=== PATIENT | male | born 1930 | race Caucasian/White ===

== ENCOUNTER → 2016-11-30 | Outpatient (CLI) | payer BC ==
[~2016-11-30] MED LIST: ASPI81TA28 PO; LEVO50TA6 PO; MULT-506 PO; TRIATAB3 PO; ZOLP5TAB PO
--- NOTE | 2016-11-30 07:54 | DIAGNOSTIC IMAGING REPORT ---
Abdominal aortic ultrasound AORTIC ANEURYSM RETRO CALR CLINICAL HISTORY: AAA aneurysm TECHNIQUE: Ultrasound COMPARISON STUDY: 04/02/2016 FINDINGS: Unchanging aneurysm of the distal abdominal aorta. Maximum current dimensions of 3.2 x 3.1 cm. This is unchanged in the prior exam. Generalized atherosclerotic change of the remaining visualized components of the abdominal aorta as well as iliac vasculature. IMPRESSION: Aneurysm distal abdominal aorta unchanged from at least 2 prior studies. Electronically signed by: Tamir Walls M.D. 11/30/2016 7:53 AM Dictated Date/Time: 11/30/2016 7:50 AM
== END | disposition home or self-care (01) ==
LOC: C.ULTR 07:10
PROVIDERS: ATTEND Family Medicine
DX: I71.4 Abdominal aortic aneurysm, without rupture (principal)

== ENCOUNTER → 2016-12-28 | Outpatient (CLI) | payer BC ==
--- NOTE | 2016-12-28 13:59 | DIAGNOSTIC IMAGING REPORT ---
KUB CLINICAL HISTORY: Nephrolithiasis. COMPARISON STUDY: CT of the abdomen pelvis January 23, 2014. FINDINGS: A 3 mm left renal calculus is noted. There are a few suspected additional punctate left renal calculi. Evaluation for ureteral calculi is difficult given numerous phleboliths. No definite ureteral calculi are identified on this exam. No right renal calculi are identified although the right renal shadow is obscured by stool. IMPRESSION: 1. 3 mm left renal calculus with a few additional suspected punctate left renal calculi. 2. No ureteral calculi identified although evaluation is difficult given numerous phleboliths within the pelvis. Electronically signed by: Alfonzo Olmstead M.D. 12/28/2016 1:58 PM Dictated Date/Time: 12/28/2016 1:48 PM
== END | disposition home or self-care (01) ==
LOC: C.RAD 13:15
PROVIDERS: ATTEND Urology
DX: N20.0 Calculus of kidney (principal); N40.1 Benign prostatic hyperplasia with lower urinary tract symptoms; R97.20 Elevated prostate specific antigen [PSA]

== ENCOUNTER → 2016-12-30 | Outpatient (CLI) | payer BC ==
--- NOTE | 2016-12-30 15:12 | DIAGNOSTIC IMAGING REPORT ---
SACRUM COCCYX MIN 2 VIEWS CLINICAL HISTORY: SACROCOCCYGEAL DISORDERS COMPARISON STUDY: None. FINDINGS: No fractures identified within the sacrum or coccyx. The sacrum and coccyx are well aligned. Presacral soft tissues are within normal limits. Mild degenerative changes within the bilateral sacroiliac joints. Multiple pelvic phleboliths. IMPRESSION: No significant abnormality within the sacrum or coccyx. Electronically signed by: Dave Ramos M.D. 12/30/2016 3:11 PM Dictated Date/Time: 12/30/2016 3:09 PM
--- NOTE | 2016-12-30 15:14 | DIAGNOSTIC IMAGING REPORT ---
LUMBAR SPINE 5 VIEWS HISTORY: Low back pain. SACROCOCCYGEAL DISORDERS COMPARISON: None. FINDINGS: There is no fracture. No subluxation. Mild disc space narrowing at L3-L4 and L4-L5. Endplate osteophytes seen throughout the lumbar spine. Severe facet osteoarthritis at L5-S1. Mild facet osteoarthritis throughout the remaining lumbar spine levels. Large bridging osteophytes at L1-L2. The sacrum appears intact. IMPRESSION: No fracture or subluxation within the lumbar spine. Degenerative changes as described above. Electronically signed by: Dave Ramos M.D. 12/30/2016 3:13 PM Dictated Date/Time: 12/30/2016 3:11 PM
== END | disposition home or self-care (01) ==
LOC: C.RAD1850 14:47
PROVIDERS: ATTEND Family Medicine
DX: M53.3 Sacrococcygeal disorders, not elsewhere classified (principal)

== ENCOUNTER → 2017-01-31 | Outpatient (CLI) | payer BC ==
[2017-01-31 13:12] LABS: BASO % 0.4 %; BASO ABS # 0.02 K/uL (0-0.2); COMPLETE YES; EOS % 2.8 %; HEMATOCRIT 45.1 % (42-52); IG% 0.4 %; LYMPH % 26.5 %; LYMPH ABS # 1.44 K/uL (1.2-3.4); MEAN CORPUSCULAR HEMOGLOBIN 31.9 pg (25-34); MEAN CORPUSCULAR HGB CONC 33.9 g/dl (32-36); MEAN PLATELET VOLUME 9.6 fL (7.4-10.4); MONO % 12.9 %; PLATELET COUNT 205 K/uL (130-400); WHITE BLOOD COUNT 5.43 K/uL (4.8-10.8)
[2017-01-31 13:51] LABS: ALT/SGPT 21 U/L (12-78); AST/SGOT 20 U/L (15-37); BLOOD UREA NITROGEN 24 mg/dl (7-18); BUN/CREATININE RATIO 20.2 (10-20); CALCIUM 8.7 mg/dl (8.5-10.1); CARBON DIOXIDE 30 mmol/L (21-32); CHLORIDE 107 mmol/L (98-107); GLUCOSE 82 mg/dl (70-99); SODIUM 143 mmol/L (136-145)
[2017-01-31 14:02] LABS: ALB/GLOB RATIO 1.2 (0.9-2); ALKALINE PHOSPHATASE 84 U/L (45-117)
== END | disposition home or self-care (01) ==
LOC: C.LAB 12:25
PROVIDERS: ATTEND Internal Medicine
DX: N40.1 Benign prostatic hyperplasia with lower urinary tract symptoms (principal); R53.83 Other fatigue

== ENCOUNTER → 2017-03-09 | Outpatient (CLI) | payer BC | END | disposition home or self-care (01) | LOC: C.LAB 15:34 | PROVIDERS: ATTEND Family Medicine | DX: R10.9 Unspecified abdominal pain (principal) ==

== ENCOUNTER → 2017-03-14 | Outpatient (CLI) | payer BC ==
--- NOTE | 2017-03-14 13:32 | DIAGNOSTIC IMAGING REPORT ---
ANGIO ABD/PELVIS WITH CONTRAST CLINICAL HISTORY: 86 years-old Male presenting with diffuse abdominal pain, concern for abdominal aortic aneurysm. TECHNIQUE: Multidetector CT angiography of the abdomen and pelvis was performed after the administration of intravenous contrast. 3-D volumetric and/or maximum intensity projection (MIP) images were subsequently reconstructed for review. IV contrast: 92 mL of Optiray 320. A dose lowering technique was used consistent with the principles of ALARA (as low as reasonably achievable). COMPARISON: 01/23/2014. CT DOSE (mGy.cm): The estimated cumulative dose is 463.78 mGy.cm. FINDINGS: Decorative Engraver Apprentice topogram: Unremarkable. Evidence of an infrarenal abdominal aortic aneurysm with a maximal diameter of 3.2 cm, previously 3.2 cm in 2014. Irregularity of the noncalcified atherosclerotic plaque. A possible short segment dissection or penetrating ulcer is noted along the left anterolateral aspect (series 3 image 207). No periaortic inflammatory change or retroperitoneal hematoma to suggest impending rupture. Major branch vessels of the aorta remain patent including the inferior mesenteric artery. No narrowing of the common or external iliac arteries. Dependent changes in the lungs likely atelectasis. Normal heart size. No pericardial or pleural effusion. Well-defined hypodensity in the left hepatic lobe of the liver, indeterminate but likely cyst or hamartoma. Normal liver morphology. No biliary duct dilatation. Normal gallbladder. Mild prominence of the pancreatic duct. Spleen and adrenal glands normal. Multiple parapelvic renal cysts bilaterally. No hydronephrosis. Bladder and prostate normal. No bowel obstruction. Scattered subcentimeter mesenteric lymph nodes, possibly reactive. Mild dilatation of the left common femoral vein, slightly asymmetric to the right. This is incompletely evaluated given the arterial phase of contrast. No free fluid or gas. Degenerative changes of the spine. IMPRESSION: Infrarenal abdominal aortic aneurysm measuring up to 3.2 cm in maximal diameter, unchanged since 2013. Evidence of possible short segment dissection or penetrating ulcer along the left anterolateral aspect. No evidence of rupture. Electronically signed by: Yunior Lawson M.D. 03/14/2017 1:30 PM Dictated Date/Time: 03/14/2017 1:23 PM
== END | disposition home or self-care (01) ==
LOC: C.CTS 12:44
PROVIDERS: ATTEND Family Medicine
DX: R10.9 Unspecified abdominal pain (principal); I71.4 Abdominal aortic aneurysm, without rupture

== ENCOUNTER → 2017-05-31 | Outpatient (CLI) | payer BC ==
--- NOTE | 2017-05-31 12:05 | DIAGNOSTIC IMAGING REPORT ---
FLUOROSCOPIC GUIDED RIGHT HIP STEROID INJECTION FLUOROSCOPY TIME: 3 seconds. Single fluoroscopic spot image. HISTORY: Right hip pain. PROCEDURE: After obtaining written informed consent, the patient was placed supine on the fluoroscopy table. A suitable site for needle insertion was marked using fluoroscopic guidance. The right hip was prepped and draped in the usual sterile fashion. 1% lidocaine was used for skin, subcutaneous and deep soft tissue anesthesia. Under intermittent fluoroscopic guidance, a 22 gauge x 3.5 inch spinal needle was inserted into the right hip joint. 2 cc of Optiray 300 was injected to confirm the intra-articular location. This is followed by a mixture of 8 cc of 0.5% bupivacaine and 2 cc of betamethasone at the request of the referring physician. The needle was then removed. There were no apparent complications. IMPRESSION: Fluoroscopic-guided right hip steroid injection without immediate complication. Electronically signed by: Dave Ramos M.D. 05/31/2017 12:04 PM Dictated Date/Time: 05/31/2017 12:03 PM
== END | disposition home or self-care (01) ==
LOC: C.RADBC 10:50
PROVIDERS: ATTEND Orthopaedic Surgery Sports Medicine
DX: M16.11 Unilateral primary osteoarthritis, right hip (principal)

== ENCOUNTER 2017-07-22 05:04 | Inpatient (IN) | payer BC, OTHER ==
[2017-07-07 10:08] VITALS: BMI 27.0
--- NOTE | 2017-07-07 10:35 | PAT Medication Instructions ---
Service Date Jul 07, 2017. Current Home Medication List Acetaminophen (Tylenol), 1,000 MG PO PRN Aspirin (Aspirin Ec), 81 MG PO QAM Levothyroxine Sodium (Levothyroxine Sodium), 50 MCG PO QAM Multivitamin (Multivitamin), 1 TAB PO PRN Tramadol (Ultram), 50-100 MG PO Q8H PRN for Pain Zolpidem Tartrate (Ambien), 5 MG PO HS [Bp Med], 0.5 TAB PO QAM Medication Instructions For Your Scheduled Surgery - Call for instructions: [Bp Med], 0.5 TAB PO QAM - Hold the following medications the morning of surgery: Multivitamin (Multivitamin), 1 TAB PO PRN - Take the following medications the morning of surgery with a sip of water OTHERWISE NOTHING TO EAT OR DRINK AFTER MIDNIGHT: Acetaminophen (Tylenol), 1,000 MG PO PRN Tramadol (Ultram), 50-100 MG PO Q8H PRN for Pain Levothyroxine Sodium (Levothyroxine Sodium), 50 MCG PO QAM Aspirin (Aspirin Ec), 81 MG PO QAM - Take the following medications as scheduled the night before surgery: Acetaminophen (Tylenol), 1,000 MG PO PRN Tramadol (Ultram), 50-100 MG PO Q8H PRN for Pain Zolpidem Tartrate (Ambien), 5 MG PO HS If you have any questions please call us at [phone] or [phone] or [phone]
--- NOTE | 2017-07-07 11:15 | DIAGNOSTIC IMAGING REPORT ---
CHEST 2 VIEWS ROUTINE CLINICAL HISTORY: Preoperative chest COMPARISON STUDY: 05/03/2014 FINDINGS: The cardiac and mediastinal contours are normal. There is no evidence of focal pulmonary consolidation. There is no evidence of failure. No pleural effusions are visualized.[There is minimal basilar atelectasis/scarring. Degenerative changes are present within the dorsal spine. IMPRESSION: No active disease in the chest. Electronically signed by: Gumaro Urbina M.D. 07/07/2017 11:14 AM Dictated Date/Time: 07/07/2017 11:14 AM
[2017-07-07 11:19] LABS: PTT PATIENT 27.3 SECONDS (21.0-31.0)
[2017-07-07 11:20] LABS: BASO % 0.4 %; BASO ABS # 0.03 K/uL (0-0.2); EOS % 1.6 %; EOS ABS # 0.11 K/uL (0-0.5); HEMATOCRIT 42.6 % (42-52); HEMOGLOBIN 14.5 g/dL (14.0-18.0); IG# 0.02 K/uL (0.00-0.02); LYMPH % 12.6 %; LYMPH ABS # 0.85 K/uL (1.2-3.4); MEAN CELL VOLUME 96.4 fL (80-100); MEAN CORPUSCULAR HEMOGLOBIN 32.8 pg (25-34); MEAN PLATELET VOLUME 9.3 fL (7.4-10.4); MONO % 6.4 %; MONO ABS # 0.43 K/uL (0.11-0.59); NEUT % 78.7 %; NEUT ABS # 5.31 K/uL (1.4-6.5); PLATELET COUNT 214 K/uL (130-400); RED CELL DISTRIBUTION WIDTH CV 13.5 % (11.5-14.5); WHITE BLOOD COUNT 6.75 K/uL (4.8-10.8)
[2017-07-07 12:32] LABS: CALCIUM 8.6 mg/dl (8.5-10.1); CREATININE 1.49 mg/dl (0.60-1.40); POTASSIUM 3.8 mmol/L (3.5-5.1)
[~2017-07-22] VITALS: Ht 177.8 cm; Wt 87.3 kg
[2017-07-22] VITALS (23 sets, daily range): BP systolic 115–201; BP diastolic 63–89; PULSE 72–88; TEMP 36.7–39.3; O2SAT 91–99; Ht 177.8 cm; Wt 87.3 kg
[~2017-07-22 05:04] MED LIST changes: +ACET-1256 PO; +TRAM-10 PO
[2017-07-22] MEDS ORDERED: LACTATED RINGER'S 1000ML 500 ML IV SCH (06:00)
[2017-07-22] MEDS ORDERED: ACETAMINOPHEN 500 MG TAB PO SCH (06:00)
[2017-07-22] MEDS ORDERED: TRANEXAMIC ACID INJ 1,000 MG in SYRINGE 0 ML IV SCH (06:00)
[2017-07-22] MEDS ORDERED: METOCLOPRAMIDE HCL 10 MG TAB PO SCH (06:00)
[2017-07-22] MEDS ORDERED: GABAPENTIN 300 MG CAP PO SCH (06:00)
[2017-07-22] MEDS ORDERED: FAMOTIDINE 20 MG TAB PO SCH (06:00)
[2017-07-22] MEDS ORDERED: LACTATED RINGER'S 1000ML 1,000 ML IV SCH ×2 (06:00)
[2017-07-22] MEDS ORDERED: LACTATED RINGER'S 1000ML IV SCH (06:00)
[2017-07-22] MEDS ORDERED: BUPIVACAINE 0.5 % 5 MG/1 ML PF 10ML VIAL ONE (06:28)
[2017-07-22] MEDS ORDERED: BACITRACIN 50000 UNIT VIAL ONE (06:29)
[2017-07-22] MEDS ORDERED: BUPIVACAINE 0.5 % 5 MG/1 ML MPF 30ML VIAL ONE (06:30)
[2017-07-22] MEDS ORDERED: EpINEphrine HCL INJ 1 MG/ML 5ML SYRINGE ONE (06:30)
--- NOTE | 2017-07-22 06:39 | History & Physical Bridge Note ---
H&P Re-Evaluation Bridge Note: I have examined the patient, reviewed the History & Physical and in the interval since the performance of the History & Physical I have noted the following changes of clinical significance: No changes noted
--- NOTE | 2017-07-22 06:39 | History and Physical ---
History & Physical Date Jul 22, 2017. Chief Complaint Right Hip Pain History of Present Illness The patient is a 86 year old male with complaints of Right Hip Pain. Increased over past 6 months. Difficulty with any activities. Failed non-operative treatment. Past Medical/Surgical History Medical Problems: (1) CALCULUS OF URETER (2) CERV SPONDYL W MYELOPATH Additional History Hepatic Disease: No Endocrine Disorder: No Kidney Disease: No Hypertension: No Heart Disease: No Bleeding Tendencies: No Infectious Diseases: No Allergies Coded Allergies: No Known Allergies (Verified , 07/22/17) Home Medications Scheduled Acetaminophen (Tylenol), 1,000 MG PO PRN Aspirin (Aspirin Ec), 81 MG PO QAM Levothyroxine Sodium (Levothyroxine Sodium), 50 MCG PO QAM Multivitamin (Multivitamin), 1 TAB PO PRN Triamterene/Hctz (Triamterene/Hctz 37.5-25MG), 0.5 TAB PO QAM Zolpidem Tartrate (Ambien), 5 MG PO HS Scheduled PRN Tramadol (Ultram), 50-100 MG PO Q8H PRN for Pain Physical Examination Skin: warm/dry, no rash Eyes: normal inspection, EOMI, sclerae normal ENT: normal ENT inspection, pharynx normal Head: normocephalic, atraumatic Neck: supple, no adenopathy, trachea midline Respiratory/Chest: lungs clear, normal breath sounds, no respiratory distress Cardiovascular: regular rate, rhythm, no edema, no murmur Abdomen / GI: normal bowel sounds, non tender Back: normal inspection Extremities: normal inspection, normal range of motion Neurologic/Psych: no motor/sensory deficits, alert, normal reflexes, oriented x 3 Addiitonal Comments: Right Hip with limited motion. Pain with Internal Rotation. Diagnosis Right Hip DJD Plan of Treatment Right Total Hip Replacement
[2017-07-22] MEDS ORDERED: MIDAZOLAM HCL 1 MG/ML 2ML VIAL ONE (06:46)
[2017-07-22] MEDS: CEFAZOLIN 2000MG IV PUSH 10 ML IV SCH ×2 (07:00→08:06)
[2017-07-22] MEDS ORDERED: PROPOFOL IV EMULSION 10 MG/ML 20 ML VIAL IV ONE (08:06)
[2017-07-22] MEDS ORDERED: ESMOLOL HCL 10 MG/ML 10 ML VIAL ONE (08:06)
[2017-07-22] MEDS ORDERED: METOPROLOL TARTRATE 1 MG/ML VIAL ONE (08:09)
[2017-07-22] MEDS ORDERED: SODIUM CHLORIDE 0.9% 1000ML 1,000 ML IV PRN (08:20)
[2017-07-22] MEDS ORDERED: NALOXONE HCL INJ 1 MG in SODIUM CHLORIDE 0.9% 1000ML 1,000 ML IV PRN (08:20)
[2017-07-22] MEDS ORDERED: NALOXONE HCL INJ 0.08 MG in SYRINGE 1.8 ML IV PRN (08:20)
[2017-07-22] MEDS ORDERED: LACTATED RINGER'S 1000ML 500 ML IV PRN (08:20)
--- NOTE | 2017-07-22 08:26 | [facility] Post Operative Brief Note ---
Immediate Operative Summary Operative Date Jul 22, 2017. Pre-Operative Diagnosis Right hip degenerative joint disease Post-Operative Diagnosis Right hip degenerative joint disease Procedure(s) Performed Right total hip arthroplasty Surgeon Dr. Rose Sports Marketer Surgeon(s) Alexandre Padilla PA-C Estimated Blood Loss 300 mL Findings Right Hip DJD Fluids (cc crystalloids) 1200 cc Specimens A: Right femoral head Drains None Anesthesia Spinal Complication(s) None Accompanied patient to RR and did post-op note. Disposition Recovery Room / PACU
[2017-07-22] MEDS ORDERED: MoRPHine SULFATE PF 1 MG/ML 10 ML AMP/VIAL EPI PRN (08:30)
[2017-07-22] MEDS ORDERED: TAMSULOSIN HCL 0.4 MG CAP PO PRN (08:30)
[2017-07-22] MEDS ORDERED: MEPERIDINE HCL 25 MG/ML CARP IV PRN ×2 (08:30→15:30)
[2017-07-22] MEDS ORDERED: NALOXONE HCL 0.4 MG/1 ML VIAL/CARP IV PRN (08:30)
[2017-07-22] MEDS ORDERED: MULTIVITAMIN TAB PO SCH (08:30)
[2017-07-22] MEDS ORDERED: ONDANSETRON INJ 2 MG/ML 2 ML VIAL IV PRN (08:30)
[2017-07-22] MEDS ORDERED: SILVER SULFADIAZINE 1% CR 50 GM JAR EXT PRN (08:30)
[2017-07-22] MEDS ORDERED: KETOROLAC TROMETHAMINE 30 MG/ML VIAL IV. PRN (08:30)
[2017-07-22] MEDS ORDERED: NO NSAIDS SCH (08:30)
[2017-07-22] MEDS ORDERED: NALBUPHINE HCL INJ 10 MG/ML AMP IV PRN (08:30)
[2017-07-22] MEDS ORDERED: METOCLOPRAMIDE HCL INJ 5 MG/ML 2 ML VIAL IV PRN (08:30)
[2017-07-22] MEDS ORDERED: DiphenhydrAMINE HCL 50 MG/ML VIAL IV PRN (08:30)
[2017-07-22] MEDS ORDERED: NO NARCOTICS OR SEDATIVES SCH (08:30)
[2017-07-22] MEDS ORDERED: MAGNESIUM HYDROXIDE SUSP 30 ML UDC PO PRN (08:30)
[2017-07-22] MEDS ORDERED: EpHEDrine SULFATE INJ 50 MG/ML AMP IV PRN (08:30)
[2017-07-22] MEDS ORDERED: MoRPHine SULFATE 2 MG/ML CARP IV PRN (08:30)
[2017-07-22] MEDS ORDERED: ALUMINUM/MAGNESIUM/SIMETH (MAALOX MAX) 30 ML UDC PO PRN (08:30)
[2017-07-22] MEDS ORDERED: BISACODYL 10 MG SUPP PR PRN (08:30)
[2017-07-22] MEDS ORDERED: TRIAMTERENE/HCTZ 37.5/25MG TAB PO SCH (09:00)
--- NOTE | 2017-07-22 09:01 | OPERATIVE REPORT ---
DATE OF OPERATION: 07/22/2017 SURGEON: Pardeep Rose MD. SHEET METAL ERECTOR: HARDIK Kramer. PREOPERATIVE DIAGNOSIS: Right hip degenerative joint disease. POSTOPERATIVE DIAGNOSIS: Same. PROCEDURE PERFORMED: Right uncemented total hip arthroplasty. COMPLICATIONS: None. ESTIMATED BLOOD LOSS: 300 mL. FLUID REPLACEMENT: 1200 mL crystalloid fluid replacement. ANESTHESIA: Spinal. DRAINS: None. SPECIMENS: Right femoral head sent for pathology. 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 He has been through extensive conservative treatment without adequate relief. X-rays show progressive right hip arthritis with significant joint destruction over the past 6 months. He had an infectious workup which was essentially negative. He did have an intraarticular hip joint injection about 7 weeks ago which gave him a couple weeks of good relief, but he was pretty active on his hip and then was miserable. He has had trouble getting around. We tried to put this off and give a little bit more time after the injection, but he was really debilitated by his condition and after 6 weeks, we elected to proceed with a total hip arthroplasty. OPERATIVE FINDINGS: Operative findings revealed advanced right hip DJD. He did have some demargination and delamination of the articular cartilage suggestive of possible AVN. He had a moderate sized joint effusion. Not a lot of osteophytes around the acetabulum or femoral head. Moderate synovitis. OPERATIVE IMPLANTS: Operative implants consisted of: 1. Biomet G7 size 58-mm acetabular shell. 2. A 6.5 cancellous acetabular screws, 1 at 35 mm length and 1 at 25 mm in length. 3. An apex hole eliminator. 4. Highly cross-linked polyethylene liner with 58 mm outer diameter, 36 mm inner diameter with a sotelo placed inferior and posterior. 5. A DePuy size 13 large stature standard offset femoral stem. 6. A +5/36 mm articular ball. OPERATIVE PROCEDURE: The patient was taken to the operating room, identified and placed on the operating table in supine position. All contact areas were appropriately padded. IV antibiotics were provided by anesthesia team. A spinal anesthetic had been implemented in the holding area. May catheter was placed in sterile fashion. The patient was then placed in the left lateral decubitus position. An axillary roll was placed. Stlberg hip positioner was used for positioning. The right hip and leg were then prepped and draped in the usual sterile fashion. A posterolateral approach to the right hip was then performed through a curvilinear incision centered over the greater trochanter. Sharp dissection was carried out through the subcutaneous tissue down to the level of the IT band and gluteal fascia. The IT band and gluteal fascia were incised longitudinally in line with skin incision. The underlying greater trochanteric bursa was excised. The piriformis and external rotators were tagged and taken off the posterior aspect of the femur. Great care was taken throughout the procedure to protect the sciatic nerve at all times. Posterior capsulotomy was then performed leaving a large flap for later repair. It was internally rotated and dislocated. Femoral neck osteotomy cut was made about 15 mm above the lesser trochanter. Femoral head was removed and sent for pathology. The femur was retracted anteriorly. Attention was then drawn to the acetabulum. The acetabular labrum was excised. The pulvinar fat was excised. Sequential reaming of the acetabulum was then performed beginning with a size 49 and progressing up to 57. A 58 mm Biomet G7 acetabular shell was then placed in about 40 degrees of lateral opening and 20 degrees of anteversion. It was fixed with two 6.5 cancellous acetabular screws. A trial liner was placed. Attention was then drawn to the femur. The proximal femur was entered with a cookie cutter followed by canal finder and lateralizing reamer. Sequential reaming of the femur was then performed beginning with a size 10 and progressing up to an 11.5. We got pretty decent chatter even at a 10. We broached beginning with a size 10.5 small and progressed to a 12 small. We got excellent fit. The calcar reamer was then used to smoothen off the calcar. We then trialed the hip. The +5 articular ball provided full stability and full extension and external rotation, flexion to 90 degrees, internal rotation to 60 degrees. The soft tissue tension was a little bit lax, so I did place a sotelo inferior and posterior due to this patient's tendency to do a lot of bending and squatting. We elected to use these implants. All trial implants were removed. An apex hole eliminator was placed. Highly cross-linked polyethylene liner with a sotelo placed inferior and posterior was placed. A 12 large stature AML femoral stem was impacted in position. A +5/36 mm articular ball was placed. Hip was located and once again found to be stable. Attention was then drawn toward closing. The wound was irrigated with copious amounts of pulsatile lavage solution. I injected locally with 50 mL of 0.5% Marcaine with epinephrine. The posterior capsule and external rotators were repaired through drill holes in the posterior trochanter with #2 Ti-Cron suture. The IT band and gluteal fascia were then closed with #1 PDS suture in running fashion. The subcutaneous tissues were then closed with a combination of #1 Vicryl suture and 2-0 Dexon suture in a buried interrupted fashion. The skin was closed with skin jevon. Leg was then cleaned, dried and a sterile dressing of Xeroform, 4 x 4's, sterile ABD pad and foam tape was applied. The patient then transferred to the recovery room in stable condition. The patient tolerated the procedure with no complications. All needle and sponge counts were correct at the end of the operation. I attest to the content of the Intraoperative Record and any orders documented therein. Any exception s are noted below.
--- NOTE | 2017-07-22 09:03 | DIAGNOSTIC IMAGING REPORT ---
R PELVIS/UNILATERAL HIP 1 VIEW CLINICAL HISTORY: 86 years-old Male presenting with IN PACU - A/P PELVIS and LATERAL HIP INCLUDING ALL OF IMPLANT. TECHNIQUE: Single frontal view the pelvis and crosstable lateral views of the right hip were obtained. COMPARISON: 06/24/2017. FINDINGS: There has been postsurgical changes of total right hip arthroplasty. Overlying skin jevon and intra-articular and soft tissue emphysema noted. No malalignment or gross evidence of hardware complication. No fracture. Multiple pelvic phleboliths. Bony pelvis intact. IMPRESSION: Expected postsurgical appearance status post total right hip arthroplasty. Electronically signed by: Yunior Lawson M.D. 07/22/2017 9:02 AM Dictated Date/Time: 07/22/2017 9:01 AM
[2017-07-22] MEDS ORDERED: METOPROLOL TARTRATE 25 MG TAB PO ONE (09:34)
--- NOTE | 2017-07-22 09:34 | Anesthesiology Progress Note ---
Anesthesia Post Op Note Date & Time Jul 22, 2017 at 09:31 Vital Signs Pain Intensity: 0 Vital Signs Past 12 Hours Date Time Temp Pulse Resp B/P (MAP) Pulse Ox O2 Delivery O2 Flow Rate FiO2 07/22/17 09:26 115/52 07/22/17 09:23 85 16 07/22/17 09:23 82 16 97 07/22/17 09:21 121/59 07/22/17 09:18 76 16 96 07/22/17 09:18 84 16 07/22/17 09:17 37.3 07/22/17 09:17 82 16 07/22/17 09:17 86 16 95 07/22/17 09:16 114/64 07/22/17 09:12 81 16 07/22/17 09:12 81 16 97 07/22/17 09:11 118/57 07/22/17 09:07 78 16 07/22/17 09:07 82 16 97 07/22/17 09:06 96/76 07/22/17 09:02 76 16 98 07/22/17 09:02 76 16 07/22/17 09:01 92/50 07/22/17 08:57 83 15 97 07/22/17 08:57 82 15 07/22/17 08:56 84 19 109/58 98 07/22/17 08:56 87 19 07/22/17 08:51 83 13 07/22/17 08:51 82 13 104/50 99 07/22/17 08:46 85 12 07/22/17 08:46 83 12 106/50 98 07/22/17 08:41 81 16 07/22/17 08:41 82 16 109/51 98 07/22/17 08:36 80 14 07/22/17 08:36 83 14 109/52 98 07/22/17 08:31 87 19 07/22/17 08:31 85 19 111/52 99 07/22/17 08:27 107/54 07/22/17 08:26 36.8 83 18 107/54 97 Oxymask 10 07/22/17 05:45 36.8 72 20 187/88 99 Room Air Notes Mental Status: alert / awake / arousable, participated in evaluation Pt Amnestic to Procedure: Yes Nausea / Vomiting: adequately controlled Pain: adequately controlled Airway Patency, RR, SpO2: stable & adequate BP & HR: stable & adequate, see Notes Hydration State: stable & adequate Neuraxial Anesthesia: was administered, sensory block is resolving Anesthetic Complications: no major complications apparent The patient was doing well during the surgery when his HR abruptly went up to the 120s as noted by the CONSUMER LOAN PROCESSOR. He was treated with esmolol and metoprolol which brought his HR down to the 80s. BP was normotensive. In the PACU, a 12 lead EKG showed new onset afib. He remained rate controlled 80s-90s. Other vitals remained stable and the patient is awake and comfortable. Dr. Rome came to see the patient and Dr. Escudero is aware of the patient. He will be monitored on telemetry overnight.
--- NOTE | 2017-07-22 10:03 | CARDIOLOGY CONSULTATION ---
DATE OF CONSULTATION: 07/22/2017 PERTINENT HISTORY: Mr. Mcneal is an 86-year-old white male well known to me from the outpatient setting. The patient underwent right hip replacement surgery today with Dr. Rose. In the recovery room, the patient developed atrial fibrillation with a rapid ventricular response. This consultation was ordered to assist in his cardiac management. The patient was evaluated in the PACU this morning. The patient was in rate controlled atrial fibrillation at the time of my evaluation. The patient had no symptoms of palpitations, chest discomfort, dyspnea, nausea, vomiting, diaphoresis or presyncope. The patient is never known with a diagnosis of atrial fibrillation. He has never had a prior cardiac event. His most recent stress echocardiogram was performed in April 2009 which was normal. The patient has decrease in his daily activities and his only limitation of life was that of right hip arthritis. He has never experienced exertional chest pain or limiting dyspnea. He further denies syncope, PND, orthopnea, lower extremity edema, and claudication. Currently, the patient is resting comfortably in bed without complaints. PAST MEDICAL HISTORY: 1. Hypertension. 2. Hypothyroidism. 3. Nephrolithiasis. 4. BPH. 5. Right ureteral stent -- March 2010. 6. Status post TURP. 7. Right inguinal hernia repair. 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 9. Bilateral intraocular lens implants. 10. History of herpes zoster -- right chest -- October 2015. USUAL OUTPATIENT MEDICATIONS: 1. Dyazide 1/2 tablet daily. 2. Synthroid 0.05 mg daily. 3. Aspirin 81 mg per day. 4. Multivitamin 1 tablet daily. 5. Ambien 5 mg p.r.n. ALLERGIES: None. SOCIAL HISTORY: The patient is a , currently lives with his significant other. Does not use tobacco. Alcohol use is social. FAMILY HISTORY: Noncontributory. REVIEW OF SYSTEMS: A 10-point review of systems is negative except for that described above. PHYSICAL EXAMINATION: GENERAL: This is a well-developed, well-nourished, white male lying supine in bed without complaints. VITAL SIGNS: Blood pressure 115/52 with a regular pulse of 85. Respiratory rate is 16. The patient is afebrile at 37.3 degrees Celsius. Saturation 97% on room air. HEENT: Negative. NECK: Supple with full carotid upstrokes. No carotid bruits. Jugular venous pressure is difficult to assess. CARDIOVASCULAR: Reveals a nonpalpable PMI and an irregular, irregular rhythm with distant heart sounds. No obvious murmurs. No S3. LUNGS: Clear without rales, rhonchi, or wheezes. ABDOMEN: Soft, nontender without bruits. EXTREMITIES: Reveal intact radial artery pulses bilaterally. There is no peripheral edema. Right hip is dressed. LABORATORY DATA: CBC notes hemoglobin 14.5, hematocrit 42.6, white count 6.75, platelet count 214,000. Electrolytes note a sodium of 140, potassium 3.8, chloride 106, bicarb 28, BUN 19, creatinine 1.49, glucose 130. Calcium level is 8.6. INR is 1.0. Preoperative EKG notes sinus rhythm with first degree AV block and a complete right bundle branch block. EKG in the PACU notes atrial fibrillation with a controlled ventricular response. There is a complete right bundle branch block. No ischemic changes. Preoperative chest x-ray is normal. IMPRESSION: Mr. Mcneal developed atrial fibrillation with rapid ventricular response following hip replacement surgery. Suspect this is related to his elevated catecholamine state. I suspect with the use of beta blockers, he will convert back to sinus rhythm on his own. Obviously, we cannot use anticoagulant therapy as he is immediately postop. We will need to consider long-term anticoagulation as prophylaxis for a thromboembolic event. PLAN: 1. Discontinue Dyazide. 2. Metoprolol 25 mg t.i.d. 3. Would check magnesium level. 4. Further recommendations depending on his clinical course.
--- NOTE | 2017-07-22 11:25 | PROGRESS NOTE ---
DATE: 07/22/2017 DATE: 07/22/2017 SUBJECTIVE: An 86-year-old gentleman postop from a right total hip replacement. Still in the PACU. He has no pain. No chest pain, shortness of breath. He went into atrial fibrillation during the surgery, but has been given some beta surinder now out of it. He does not have any feeling or sensation in his legs yet. OBJECTIVE: VITAL SIGNS: Temperature is 37.3. Vital signs stable. Pulse was 95. LUNGS: Clear to auscultation. HEART: Has a regular rate and rhythm. ABDOMEN: Soft, nontender, nondistended. EXTREMITY EXAMINATION: Grossly neurovascularly intact except as follows: Examination of the right hip and leg reveals the leg lengths to be equal. Dressing is clean, dry and intact. Thigh is soft and supple. He has got no significant sensory or motor function yet. He has got good distal pulse. X-RAYS: X-rays of the right hip from recovery room were reviewed. It shows a right uncemented total hip arthroplasty. Components looked to be in good position. No signs of problems. ASSESSMENT: An 86-year-old gentleman postop from a right total hip replacement, doing well. He did go into Afib while we were implanting the stem. He was given a beta surinder and looks like he is back in sinus rhythm. Spinal is still in full effect limiting neuro exam. PLAN: 1. DVT prophylaxis including thigh-high TEDs, SCDs, and aspirin twice a day. 2. PT/OT. Weight bear as tolerated. Right total hip protocol. 3. Pain control. We will have to wait until spinal wears off. We will try and limit narcotic pain medicines to avoid confusion issues and treated with Tylenol and tramadol. He can not have much Toradol due to his impaired kidney function. 4. IV antibiotics x24 hours. 5. Atrial fibrillation. It appears that he is back in sinus rhythm. Cardiology has been consulted. He is going to be in monitored bed overnight. 6. Disposition. He is hoping to be discharged to [facility] for a brief rehab stay once stable. ELIU
[2017-07-22] MEDS ORDERED: TRANEXAMIC ACID INJ 1,000 MG in SODIUM CHLORIDE 0.9% 100ML 100 ML IV ONE (14:30)
[2017-07-22] MEDS: FERROUS GLUCONATE 324 MG TAB PO SCH (15:41)
[2017-07-22] MEDS: CEFAZOLIN IV 2,000 MG in SYRINGE 0 ML IV SCH ×2 (15:42→23:11)
[2017-07-22] MEDS: D5W AND 1/2NSS + 20MEQ KCL 1,000 ML IV SCH ×2 (15:44→23:11)
--- NOTE | 2017-07-22 17:05 | ECHOCARDIOGRAM REPORT ---
*NOTICE TO RECEIVING [employer] This information is strictly Confidential and protected under [place] law. [place] law prohibits you from making any further disclosure of this information unless further disclosure is expressly permitted by the written consent of the person to whom it pertains or is authorized by law. A general authorization for the release of medical or other information is not sufficient for this purpose. Hospital accepts no responsibility if the information is made available to any other person, INCLUDING THE PATIENT. Interpretation Summary * Name: OUMOU HODGES Study Date: 07/22/2017 11:08 AM BP: 143/74 mmHg * Patient Location: [facility] HR: 69 * : 1930 (M/d/yyyy) Gender: Male Height: 70 in * Age: 86 yrs Ethnicity: [place] Weight: 186 lb * Ordering Physician: Jarvis Rome * Referring Physician: Pardeep Rose * Performed By: Tiki Leos RCS * * Reason For Study: A-FIB * BSA: 2.0 m2 * -- Conclusions -- * There is mild concentric left ventricular hypertrophy. * Left ventricular systolic function is normal. * Grade I diastolic dysfunction, (abnormal relaxation pattern). * Moderate aortic regurgitation. * Right ventricular systolic pressure is normal. * Very small pericardial effusion Procedure Details * A complete two-dimensional transthoracic echocardiogram was performed (2D, M-mode, Doppler and color flow Doppler). Left Ventricle * The left ventricle is normal in size. * There is mild concentric left ventricular hypertrophy. * Left ventricular systolic function is normal. * Grade I diastolic dysfunction, (abnormal relaxation pattern). * Ejection Fraction = 55-60%. * The left ventricular wall motion is normal. Right Ventricle * The right ventricle is normal in size and function. Atria * The left atrial size is normal. * Right atrial size is normal. Mitral Valve * The mitral valve anatomy is normal. * Significant mitral regurgitation is absent. Tricuspid Valve * The tricuspid valve is not well visualized, but is grossly normal. * There is mild tricuspid regurgitation. * Right ventricular systolic pressure is normal. Aortic Valve * The aortic valve is not well visualized. * No hemodynamically significant valvular aortic stenosis. * Moderate aortic regurgitation. Great Vessels * The aortic root is normal size. Pericardium/Pleural * Very small pericardial effusion Great Vessels * Normal inferior vena cava diameter and respiratory variation suggests normal central venous pressure. MMode 2D Measurements and Calculations IVSd 1.3 cm IVSs 1.6 cm LVIDd 5.1 cm LVIDs 3.1 cm LVPWd 1.3 cm LVPWs 1.3 cm IVS/LVPW 1.0 FS 38.4 % EDV(Teich) 122.0 ml ESV(Teich) 38.5 ml EF(Teich) 68.4 % EDV(cubed) 130.2 ml ESV(cubed) 30.4 ml EF(cubed) 76.7 % % IVS thick 27.7 % % LVPW thick 2.5 % LV mass(C)d 258.7 grams LV mass(C)dI 127.8 grams/m\S\2 LV mass(C)s 159.1 grams LV mass(C)sI 78.6 grams/m\S\2 SV(Teich) 83.5 ml SI(Teich) 41.3 ml/m\S\2 SV(cubed) 99.8 ml SI(cubed) 49.3 ml/m\S\2 Ao root diam 2.8 cm Ao root area 6.4 cm\S\2 LVOT diam 2.0 cm LVOT area 3.1 cm\S\2 LVAd ap4 40.5 cm\S\2 LVLd ap4 10.4 cm EDV(MOD-sp4) 127.7 ml EDV(sp4-el) 133.0 ml LVAs ap4 26.5 cm\S\2 LVLs ap4 8.7 cm ESV(MOD-sp4) 68.3 ml ESV(sp4-el) 68.9 ml EF(MOD-sp4) 46.5 % EF(sp4-el) 48.2 % LVAd ap2 37.3 cm\S\2 LVLd ap2 10.1 cm EDV(MOD-sp2) 111.8 ml EDV(sp2-el) 116.2 ml LVAs ap2 26.9 cm\S\2 LVLs ap2 9.5 cm ESV(MOD-sp2) 63.2 ml ESV(sp2-el) 64.9 ml EF(MOD-sp2) 43.5 % EF(sp2-el) 44.1 % LVLd %diff -2.95 % EDV(MOD-bp) 120.3 ml LVLs %diff 8.5 % ESV(MOD-bp) 68.6 ml EF(MOD-bp) 43.0 % SV(MOD-sp4) 59.4 ml SI(MOD-sp4) 29.3 ml/m\S\2 SV(MOD-sp2) 48.6 ml SI(MOD-sp2) 24.0 ml/m\S\2 SV(MOD-bp) 51.7 ml SI(MOD-bp) 25.5 ml/m\S\2 SV(sp4-el) 64.1 ml SI(sp4-el) 31.7 ml/m\S\2 SV(sp2-el) 51.3 ml SI(sp2-el) 25.3 ml/m\S\2 Doppler Measurements and Calculations MV E max fidel 59.8 cm/sec MV A max fidel 93.1 cm/sec MV E/A 0.64 MV P1/2t max fidel 82.0 cm/sec MV P1/2t 61.7 msec MVA(P1/2t) 3.6 cm\S\2 MV dec slope 389.3 cm/sec\S\2 MV dec time 0.24 sec Ao V2 max 130.3 cm/sec Ao max PG 6.8 mmHg Ao max PG (full) 1.3 mmHg INDER(V,A) 2.8 cm\S\2 INDER(V,D) 2.8 cm\S\2 AI max fidel 439.7 cm/sec AI max PG 77.8 mmHg AI dec slope 213.7 cm/sec\S\2 AI P1/2t 602.6 msec LV V1 max PG 5.5 mmHg LV V1 max 117.5 cm/sec TR max fidel 241.0 cm/sec
[2017-07-22] MEDS ORDERED: NURSING VERBAL MED ORDER ONE ×2 (17:15→17:45)
[2017-07-22] MEDS ORDERED: HydrALAZINE HCL 20 MG/ML VIAL IV. PRN (17:45)
--- NOTE | 2017-07-22 18:23 | Medical Consult ---
Consultation Date of Consultation: Jul 22, 2017. Attending Physician: Pardeep Rose M.D. Reason for Consultation: Medical Management History of Present Illness Mr. Mcneal is an 86 y/o male with PMHx of Hypothyroidism, HTN, Nephrolithiasis, and BPH S/P TURP who is S/P R ASIA. While in post-op recovery patient went into new onset Atrial Fibrillation with RVR around 0830. He was treated with Metoprolol 25 mg x 1 dose and ultimately converted to NSR around 1200. Telemetry reviewed and since arrival to the floor he has remained NSR. Echo obtained that shows EF 55-60% and grade I diastolic dysfunction but no wall motion abnormalities. Per cardiology, his Dyazide will be held and he will be treated with Metoprolol 25 mg TID. He has remained hypertensive throughout the day but BP reading on monitor during my examination was 115/53. Family report that patient is not always compliant with his BP medication. He denies any history of cardiac disease other than HTN. He remains very active and denies limitations in his daily routine except for the R hip. He denies exertional CP or SHAH. States he was asymptomatic during the episode of A Fib this AM. Currently he is pain free and reporting no other issues. He denies H/O DVT/PE. He did have a low grade fever recorded earlier today. He states he does not feel ill and suspect this is likely drug-related vs atelectasis. Encouraged him to take deep breaths to avoid atelectasis. Past Medical/Surgical History 1. Hypothyroidism 2. HTN 3. Nephrolithiasis 4. BPH S/P TURP 5. S/P R ASIA 6. H/O Shingles Family History Family history was reviewed; no changes noted. Social History Smoking Status: Never Smoker Smokeless Tobacco Use: No Alcohol Use: socially Drug Use: none Marital Status: Housing Status: lives with significant other Occupation Status: retired Allergies Coded Allergies: No Known Allergies (Verified , 07/22/17) Current Inpatient Medications Current Inpatient Medications Medications (Trade) Dose Ordered Sig/Sushil Route Start Time Stop Time Status Last Admin Dose Admin Naloxone HCl (Narcan Inj) 0.1 mg UD PRN IV 07/22/17 08:30 07/23/17 01:00 Diphenhydramine HCl (Benadryl Inj) 25 mg Q6H PRN IV 07/22/17 08:30 07/23/17 01:00 Nalbuphine HCl (Nubain Inj) 5 mg Q10M PRN IV 07/22/17 08:30 07/23/17 01:00 Naloxone HCl 1 mg/ Sodium Chloride 1,002.5 ml @ 50 mls/hr Q20H3M PRN IV 07/22/17 08:20 07/23/17 01:00 Ondansetron HCl (Zofran Inj) 4 mg Q6H PRN IV 07/22/17 08:30 07/23/17 01:00 Meperidine HCl (Demerol Inj) 25 mg Q15M PRN IV 07/22/17 08:30 07/23/17 01:00 07/22/17 15:43 25 MG Miscellaneous Information (Dc Intraspinal Morphine) 1 ea TODAY@0100 N/A 07/23/17 01:00 07/23/17 01:01 Miscellaneous Information (No Narcotics Or Sedatives) 1 ea UD N/A 07/22/17 08:30 07/23/17 01:00 Naloxone HCl 0.08 mg/Syringe 2 ml @ 1 mls/min Q2M PRN IV 07/22/17 08:20 07/23/17 01:00 Morphine Sulfate (MoRPHine SULFATE INJ) 2 mg Q6H PRN IV 07/22/17 08:30 07/23/17 01:00 Lactated Ringer's 500 ml @ 999 mls/hr Q31M PRN IV 07/22/17 08:20 07/23/17 01:00 Ephedrine Sulfate (EpHEDrine SULFATE INJ) 10 mg Q5M PRN IV 07/22/17 08:30 07/23/17 01:00 Morphine Sulfate (Duramorph Pf Inj) TODAY PRN EPI 07/22/17 08:30 07/23/17 01:00 Sodium Chloride 1,000 ml @ 15 mls/hr Q24H PRN IV 07/22/17 08:20 07/23/17 01:00 Potassium Chloride/Dextrose/ Sod Cl 1,000 ml @ 100 mls/hr Q10H IV 07/22/17 14:30 07/23/17 08:25 07/22/17 15:44 100 MLS/HR Miscellaneous Medication (No Nsaids) 1 ea UD N/A 07/22/17 08:30 08/21/17 08:29 Acetaminophen (Tylenol Tab) 1,000 mg Q8 PO 07/22/17 22:00 08/21/17 21:59 Magnesium Hydroxide (Milk Of Magnesia Susp) 30 ml Q6H PRN PO 07/22/17 08:30 08/21/17 08:29 Bisacodyl (Dulcolax Supp) 10 mg DAILY PRN VA 07/22/17 08:30 08/21/17 08:29 Senna (Senokot Tab) 17.2 mg HS PO 07/22/17 21:00 08/21/17 20:59 Docusate Sodium (coLACE CAP) 100 mg BID PO 07/22/17 21:00 08/21/17 20:59 Al Hydrox/Mg Hydrox/Simethicone (Maalox Max Susp) 15 ml Q4H PRN PO 07/22/17 08:30 08/21/17 08:29 Zolpidem Tartrate (Ambien Tab) 5 mg HSZ PRN PO 07/23/17 01:00 08/22/17 00:59 Multivitamins (Multivitamin Tab) 1 tab QAM PO 07/23/17 09:00 08/22/17 08:59 Ondansetron HCl (Zofran Inj) 4 mg Q6H PRN IV 07/23/17 01:00 08/22/17 00:59 Metoclopramide HCl (Reglan Inj) 10 mg Q6H PRN IV 07/22/17 08:30 08/21/17 08:29 Ferrous Gluconate (Ferrous Gluconate Tab) 324 mg TIDM PO 07/22/17 16:45 08/21/17 16:44 07/22/17 15:41 324 MG Pantoprazole Sodium (Protonix Tab) 40 mg QAM PO 07/23/17 09:00 07/26/17 08:59 Silver Sulfadiazine (Silvadene 1% Crm 50GM Jar) 1 appln BID PRN EXT 07/22/17 08:30 08/21/17 08:29 Aspirin (Ecotrin Tab) 325 mg BID PO 07/22/17 21:00 08/21/17 20:59 Tramadol HCl (Ultram Tab) 1 TABLET FOR PAIN RATING... Q4H PRN PO 07/23/17 01:00 08/22/17 00:59 Tamsulosin HCl (Flomax Cap) 0.4 mg QAM PRN PO 07/22/17 08:30 08/21/17 08:29 Cefazolin Sodium 2000 mg/Syringe 10 ml @ 2.5 mls/min Q8H IV 07/22/17 16:00 07/23/17 00:03 07/22/17 15:42 2.5 MLS/MIN Hydromorphone HCl (Dilaudid Inj) 0.5 mg Q1H PRN IV 07/23/17 01:00 08/06/17 00:59 Levothyroxine Sodium (Synthroid Tab) 50 mcg DAILYBB PO 07/23/17 06:00 08/22/17 06:59 Zolpidem Tartrate (Ambien Tab) 5 mg HS PO 07/23/17 01:00 08/22/17 00:59 Metoprolol Tartrate (Lopressor Tab) 25 mg TID PO 07/22/17 21:00 08/21/17 20:59 Meperidine HCl (Demerol Inj) 12.5 mg DAILY PRN IV 07/22/17 15:30 07/23/17 01:00 Hydralazine HCl (HydrALAZINE INJ) 10 mg Q1H PRN IV. 07/22/17 17:45 08/21/17 17:44 Review of Systems Constitutional: No fever, No chills ENT: No nasal symptoms, No sore throat, No trouble swallowing Respiratory: No cough, No dyspnea on exertion, No dyspnea at rest Cardiovascular: No chest pain, No orthopnea, No palpitations Abdomen: No pain, No nausea, No vomiting, No diarrhea, No constipation, No GI bleeding Musculoskeletal: No calf pain Genitourinary - Male: No dysuria Hematologic / Lymphatic: No abnormal bleeding/bruising, No clotting problems Physical Exam Date Time Temp Pulse Resp B/P (MAP) Pulse Ox O2 Delivery O2 Flow Rate FiO2 07/22/17 17:56 20 94 07/22/17 17:04 37.2 77 20 172/68 (102) 96 Room Air 07/22/17 16:45 38.2 88 20 201/89 (126) 94 Room Air 07/22/17 16:03 18 94 07/22/17 16:03 Room Air 07/22/17 15:25 37.3 84 20 189/71 (110) 96 Room Air 07/22/17 15:08 16 97 07/22/17 14:06 20 96 07/22/17 14:00 36.8 80 18 199/88 (125) 94 Room Air 193/81 (118) 07/22/17 13:41 18 95 07/22/17 13:41 36.7 74 18 167/65 (99) 95 Room Air 07/22/17 12:58 37.2 07/22/17 12:57 76 16 169/83 96 07/22/17 12:57 76 16 07/22/17 12:52 73 25 96 07/22/17 12:52 73 25 07/22/17 12:47 76 23 07/22/17 12:47 75 23 97 07/22/17 12:42 71 16 07/22/17 12:42 72 16 97 07/22/17 12:41 71 28 07/22/17 12:41 71 28 96 07/22/17 12:36 72 26 97 07/22/17 12:36 72 26 07/22/17 12:31 71 26 07/22/17 12:31 71 26 150/75 97 07/22/17 12:26 72 22 97 07/22/17 12:26 72 22 07/22/17 12:21 77 20 96 07/22/17 12:21 76 20 07/22/17 12:16 75 21 96 07/22/17 12:16 70 21 07/22/17 12:11 76 19 07/22/17 12:11 75 19 96 07/22/17 12:06 76 18 07/22/17 12:06 78 18 97 07/22/17 12:02 163/80 07/22/17 12:01 75 15 95 07/22/17 12:01 75 15 07/22/17 11:56 72 16 07/22/17 11:56 71 16 98 07/22/17 11:51 69 17 07/22/17 11:51 69 17 97 07/22/17 11:46 68 13 142/71 97 07/22/17 11:46 69 13 07/22/17 11:41 70 18 07/22/17 11:41 70 18 97 18 11:40 72 16 97 18 11:40 70 16 18 11:35 71 16 18 11:35 71 16 96 18 11:31 143/74 18 11:30 70 19 /18 11:30 70 19 97 18 11:25 70 15 97 18 11:25 71 15 18 11:20 70 20 18 11:20 68 20 97 07/22/18 11:16 129/62 18 11:15 68 12 18 11:15 68 12 96 07/22/17 11:10 70 22 97 07/22/17 11:10 70 22 07/22/17 11:05 68 19 98 18 11:05 68 19 18 11:01 136/69 07/22/17 11:00 73 13 97 07/22/17 11:00 72 13 07/22/17 10:55 66 19 97 07/22/17 10:55 65 19 07/22/17 10:50 68 19 18 10:50 69 19 98 18 10:46 135/64 07/22/17 10:45 65 12 07/22/17 10:45 66 12 98 07/22/17 10:40 65 16 97 18 10:40 66 16 18 10:35 66 21 18 10:35 66 21 97 18 10:31 131/58 07/22/17 10:30 67 19 96 18 10:30 66 19 18 10:29 67 19 18 10:29 67 19 95 07/22/18 10:24 69 17 18 10:24 68 17 96 07/22/18 10:19 64 17 18 10:19 65 17 97 07/22/18 10:16 129/59 07/22/18 10:14 65 14 /5/18 10:14 65 14 97 5/18 10:09 66 16 97 07/22/18 10:09 66 16 18 10:04 68 16 97 07/22/17 10:04 69 16 07/22/17 10:01 131/66 07/22/17 09:59 67 16 96 07/22/17 09:59 67 16 07/22/17 09:58 68 17 96 07/22/17 09:58 68 17 07/22/17 09:56 127/57 07/22/17 09:53 66 16 07/22/17 09:53 66 16 96 07/22/17 09:51 118/55 07/22/17 09:48 77 16 96 07/22/17 09:48 79 16 07/22/17 09:46 120/66 07/22/17 09:43 70 16 96 07/22/17 09:43 75 16 07/22/17 09:42 77 16 07/22/17 09:42 73 16 97 07/22/17 09:41 125/58 07/22/17 09:37 84 16 97 07/22/17 09:37 83 16 07/22/17 09:36 124/64 07/22/17 09:32 88 18 97 07/22/17 09:32 85 18 07/22/17 09:31 124/57 07/22/17 09:27 81 16 07/22/17 09:27 79 16 96 07/22/17 09:26 115/52 07/22/17 09:23 85 16 07/22/17 09:23 82 16 97 07/22/17 09:21 121/59 07/22/17 09:18 76 16 96 07/22/17 09:18 84 16 07/22/17 09:17 37.3 07/22/17 09:17 82 16 07/22/17 09:17 86 16 95 07/22/17 09:16 114/64 07/22/17 09:12 81 16 07/22/17 09:12 81 16 97 07/22/17 09:11 118/57 07/22/17 09:07 78 16 07/22/17 09:07 82 16 97 07/22/17 09:06 96/76 07/22/17 09:02 76 16 98 07/22/17 09:02 76 16 07/22/17 09:01 92/50 07/22/17 08:57 83 15 97 07/22/17 08:57 82 15 07/22/17 08:56 84 19 109/58 98 07/22/17 08:56 87 19 07/22/17 08:51 83 13 07/22/17 08:51 82 13 104/50 99 07/22/17 08:46 85 12 07/22/17 08:46 83 12 106/50 98 07/22/17 08:41 81 16 07/22/17 08:41 82 16 109/51 98 07/22/17 08:36 80 14 07/22/17 08:36 83 14 109/52 98 07/22/17 08:31 87 19 07/22/17 08:31 85 19 111/52 99 07/22/17 08:27 107/54 07/22/17 08:26 36.8 83 18 107/54 97 Oxymask 10 07/22/17 05:45 36.8 72 20 187/88 99 Room Air General Appearance: WD/WN, no apparent distress Head: normocephalic, atraumatic Eyes: sclerae normal ENT: hearing grossly normal Neck: supple, no JVD, trachea midline Respiratory/Chest: lungs clear, normal breath sounds, no respiratory distress, no accessory muscle use Cardiovascular: regular rate, rhythm, no gallop, no murmur Abdomen/GI: normal bowel sounds, non tender, soft Extremities/Musculoskelatal: normal capillary refill, no pedal edema, + pertinent finding (Dressing applied to R hip that is C/D/I) Neurologic/Psych: alert, oriented x 3 Skin: normal color, warm/dry Laboratory Results Last 24 Hours Test 07/22/17 13:59 07/22/17 14:41 Magnesium Level 1.8 mg/dl Thyroid Stimulating Hormone (TSH) 4.740 uIu/ml Bedside Glucose 106 mg/dl Assessment & Plan Mr. Mcneal is an 86 y/o male with PMHx of Hypothyroidism, HTN, Nephrolithiasis, and BPH S/P TURP who is S/P R ASIA. While in post-op recovery patient went into new onset Atrial Fibrillation with RVR around 0830. He was treated with Metoprolol 25 mg x 1 dose and ultimately converted to NSR around 1200. S/P R ASIA on 07/22: - Pain management, IVF, PT/OT, DVT Prophylaxis per primary - DVT prophylaxis - ASA 325 mg BID -- Possibly long-term AC pending clinical course with A Fib New Onset Atrial Fibrillation: CHADSVASC 3 - Was in this rhythm post-op and converted after Metoprolol 25 mg x 1 dose - Dr. Rome evaluated patient in PACU - held Dyazide and started Metoprolol 25 mg TID; hold on anticoagulation given post-operative hip - EKG does show QT prolongation - magnesium is normal and will need monitor electrolytes - possibly related to ambien as this is a home medication - Is technically moderate-high risk mostly due to age and H/O HTN but given his highly functional state and indepedence a stroke would be highly detrimental Elevated Creatinine: - Will obtain BMP in AM does have IVF running HTN: - Has been rather high throughout the day but was 115/53 when I was in the room - Metoprolol as above and hold Dyazide Hypothyroidism: - Synthroid 50 mcg daily Disposition: - [facility] possible I personally interviewed and examined the patient. I agree with history of present illness and physical exam mentioned above, I also performed my own history taking and examination. Past medical history and review of system has been obtained by myself I reviewed all pertinent labs and studies Reviewed current medications I discussed and formulated of the assessment and plan mentioned above. Please refer to the Summary mentioned below. 86 y/o male with PMHx of Hypothyroidism, HTN, Nephrolithiasis, and BPH S/P TURP who is S/P R ASIA. During recovery went to a previous episode of A. fib with RVR , clinically converted to sinus rhythm, Only received 1 dose of metoprolol Cardiology consult appreciated, switched blood pressure medications to metoprolol We'll monitor patient overnight, After discussion with family, recommended having a Linq placed and if no more A. fib episode happen, then maybe it's an isolated event secondary to anesthesia and dehydration If another episode happened on anticoagulation should be considered. We'll leave the ultimate decision to the inventory specialist manager. General Appearance: not in acute distress, Eyes: normal Sclerae, extraocular muscle intact ENT: hearing grossly normal Neck: supple Respiratory/Chest: normal air entry bilateral ,no respiratory distress, no accessory muscle use Cardiovascular: regular rate, rhythm, no murmur Abdomen: non tender, soft, no masses Extremities: no edema Neurologic/Psychiatric: Awake alert oriented times place and person moves all extremities sensation intact cranial nerves II-12 appear to be intact Skin: normal color, warm/dry, no rash Prasanna Hatch MD, [employer] [employer] [facility]
[2017-07-22] MEDS: ASPIRIN 325 MG ECTAB PO SCH (20:29)
[2017-07-22] MEDS: METOPROLOL TARTRATE 25 MG TAB PO SCH (20:29)
[2017-07-22] MEDS: DOCUSATE SODIUM 100 MG CAP PO SCH (20:29)
[2017-07-22] MEDS: SENNA 8.6 MG TAB PO SCH (20:30)
[2017-07-22] MEDS: ACETAMINOPHEN 500 MG TAB PO SCH (20:31)
[2017-07-22 20:53] LABS: BASO % 0.1 %; BASO ABS # 0.01 K/uL (0-0.2); EOS % 0.2 %; EOS ABS # 0.02 K/uL (0-0.5); IG# 0.04 K/uL (0.00-0.02); LYMPH % 8.1 %; MEAN CELL VOLUME 94.9 fL (80-100); MEAN CORPUSCULAR HEMOGLOBIN 31.6 pg (25-34); MEAN PLATELET VOLUME 9.4 fL (7.4-10.4); MONO % 8.6 %; MONO ABS # 0.74 K/uL (0.11-0.59); NEUT % 82.5 %; NEUT ABS # 7.14 K/uL (1.4-6.5); PLATELET COUNT 186 K/uL (130-400); RED CELL DISTRIBUTION WIDTH CV 12.8 % (11.5-14.5); RED CELL DISTRIBUTION WIDTH SD 44.6 fL (36.4-46.3); WHITE BLOOD COUNT 8.65 K/uL (4.8-10.8)
[2017-07-22 21:00] LABS: MEAN CORPUSCULAR HGB CONC 33.3 g/dl (32-36)
[2017-07-22] MEDS ORDERED: ZOLPIDEM TARTRATE 5 MG TAB ONE (22:34)
[2017-07-23] VITALS (10 sets, daily range): BP systolic 125–156; BP diastolic 63–72; PULSE 66–79; TEMP 36.8–37.9; O2SAT 91–98
[2017-07-23] MEDS ORDERED: ATOR10TA82 PO (00:37)
[2017-07-23] MEDS ORDERED: DC INTRASPINAL MORPHINE SCH (01:00)
[2017-07-23] MEDS ORDERED: ONDANSETRON INJ 2 MG/ML 2 ML VIAL IV PRN (01:00)
[2017-07-23] MEDS ORDERED: ZOLPIDEM TARTRATE 5 MG TAB PO PRN ×2 (01:00)
[2017-07-23] MEDS ORDERED: ZOLPIDEM TARTRATE 5 MG TAB PO SCH (01:00)
[2017-07-23] MEDS: D5W AND 1/2NSS + 20MEQ KCL 1,000 ML IV SCH (02:09)
[2017-07-23] MEDS: HYDROmorphone INJ 0.5 MG/0.5 ML SYR IV PRN ×5 (03:56→20:35)
[2017-07-23] MEDS: TRAMADOL HCL 50 MG TAB PO PRN (05:37)
[2017-07-23] MEDS: LEVOTHYROXINE 50 MCG TAB PO SCH (05:38)
[2017-07-23] MEDS: ACETAMINOPHEN 500 MG TAB PO SCH ×3 (05:39→20:36)
[2017-07-23 06:38] LABS: BASO % 0.2 %; BASO ABS # 0.02 K/uL (0-0.2); EOS % 0.1 %; EOS ABS # 0.01 K/uL (0-0.5); HEMATOCRIT 37.6 % (42-52); HEMOGLOBIN 12.8 g/dL (14.0-18.0); IG# 0.03 K/uL (0.00-0.02); LYMPH ABS # 1.01 K/uL (1.2-3.4); MEAN CELL VOLUME 94.5 fL (80-100); MEAN CORPUSCULAR HEMOGLOBIN 32.2 pg (25-34); MEAN PLATELET VOLUME 9.8 fL (7.4-10.4); MONO % 10.2 %; MONO ABS # 1.03 K/uL (0.11-0.59); NEUT % 79.2 %; NEUT ABS # 7.99 K/uL (1.4-6.5); PLATELET COUNT 180 K/uL (130-400); RED CELL DISTRIBUTION WIDTH SD 45.1 fL (36.4-46.3); WHITE BLOOD COUNT 10.09 K/uL (4.8-10.8)
[2017-07-23 07:14] LABS: CALCIUM 7.9 mg/dl (8.5-10.1); CREATININE 1.34 mg/dl (0.60-1.40)
[2017-07-23] MEDS: MULTIVITAMIN TAB PO SCH (07:35)
[2017-07-23] MEDS: PANTOprazole SOD 40 MG TAB PO SCH (07:35)
[2017-07-23] MEDS: METOPROLOL TARTRATE 25 MG TAB PO SCH ×3 (07:36→20:35)
[2017-07-23] MEDS: ASPIRIN 325 MG ECTAB PO SCH (07:36)
[2017-07-23] MEDS: FERROUS GLUCONATE 324 MG TAB PO SCH ×3 (07:36→16:34)
--- NOTE | 2017-07-23 08:17 | PROGRESS NOTE ---
DATE: 07/23/2017 SUBJECTIVE: An 86-year-old gentleman postop day 1 from right total hip replacement. He is doing pretty well. He did get up and walk all this morning. He had significant pain. He is sitting up in his bedside chair. He is pretty comfortable eating breakfast. Denies any chest pain or shortness of breath. Not feeling dizzy or lightheaded. OBJECTIVE: VITAL SIGNS: Temperature 37.2. Vital signs stable. GENERAL: Reveals a healthy pleasant elderly male. He is sitting up at his bedside chair eating breakfast. Looks comfortable. EXTREMITIES: Examination of the right hip reveals the dressing to be clean, dry and intact. Thigh is soft and supple. Hip is located. He is neurologically intact. LABORATORY DATA: Hemoglobin 12.8, hematocrit 37.6. Electrolytes are stable. Creatinine is actually improved at 1.34. ASSESSMENT: An 86-year-old gentleman postop day 1 from a right total hip replacement, doing well. He had brief period atrial fibrillation in the perioperative period, but looks to be back in sinus rhythm. Cardiac moore he is asymptomatic. His hip is located. His pain is reasonably well controlled. PLAN: 1. DVT prophylaxis including thigh high TEDs, SCDs, and aspirin twice a day. 2. PT, OT. Weightbearing as tolerated. Right total hip protocol. 3. Pain control, doing reasonably well with current pain regimen. 4. Medical management as per the medicine service. 5. Atrial fibrillation. He seems to be back in sinus rhythm. Cardiology following. 6. Disposition. He is hoping to be [facility] to [facility] for a brief [facility]hab stay once medically stable. He is okay to be transferred to the orthopedic floor if okay with cardiology.
[2017-07-23] MEDS: DOCUSATE SODIUM 100 MG CAP PO SCH ×2 (09:13→20:36)
[2017-07-23] MEDS ORDERED: MAGNESIUM SULFATE 1GM / D5W 1 GM in PREMIXED IN D5W 100 ML IV ONE (10:30)
[2017-07-23] MEDS ORDERED: NURSING VERBAL MED ORDER ONE (12:30)
--- NOTE | 2017-07-23 12:54 | CARDIOLOGY PROGRESS NOTE ---
DATE: 07/23/2017 SUBJECTIVE: Mr. Mcneal is resting comfortably without complaints of chest pain, dyspnea, or palpitations. His postoperative pain is adequately controlled. OBJECTIVE: VITAL SIGNS: Blood pressure is 125/70 with regular pulse of 76, respiratory rate is 20. The patient is afebrile at 37.2 degrees Celsius, saturation 91% on room air. Neck: supple with full carotid upstrokes. No carotid bruits. Jugular venous pressure is flat at 90 degrees. There is no thyromegaly. CARDIOVASCULAR EXAMINATION: Reveals a regular rhythm with normal S1 and S2. No S3, S4, or murmurs are noted. LUNGS: Clear without rales, rhonchi or wheeze. ABDOMEN: Soft and nontender without bruits. EXTREMITIES: Reveal intact radial artery pulses bilaterally. Right hip is dressed. DATA: CBC notes hemoglobin 12.8, hematocrit 37.6, white count 10.0, and platelet count 180,000. Electrolytes note a sodium of 134, potassium 4.0, chloride 102, bicarb 24, BUN 19, creatinine 1.34, glucose 106. TSH is mildly elevated at 4.74. Magnesium level is 1.6 (supplement being given currently). night monitor showed sinus rhythm. Echocardiogram notes normal left ventricular systolic function with an ejection fraction of 55-60%. There is mild LVH with diastolic dysfunction. Moderate aortic insufficiency seen. IMPRESSION AND PLAN: 1. Paroxysmal atrial fibrillation - the patient has converted to sinus rhythm. I will change from short acting to long acting metoprolol, starting tomorrow morning. He is currently on aspirin 325 mg bid. Would recommend Xarelto 15 mg daily at the time of discharge. Would also decrease aspirin dose to 81 mg daily. Would also discharge on metoprolol succinate 50 mg daily. 2. Hypertension - controlled - with evidence of mild left ventricular hypokinesis and diastolic dysfunction. 3. Moderate aortic insufficiency - continue blood pressure control. 4. Status post right total hip replacement - [facility]. Rose. [facility]
--- NOTE | 2017-07-23 14:41 | Progress Note ---
Subjective Date of Service: Jul 23, 2017. Subjective Pt is in good spirits, has many visitors and is without distress, did have afib but was unaware of any symptoms or palpitations, Dr Rome at bedside suggested anticoagulation for Afib and pt is in agreement, also informed of starting Metoprolol XL on 07/24. Problem List Medical Problems: (1) Shingles Status: Acute Review of Systems Constitutional: + weakness, + fatigue Respiratory: No cough, No sputum, No wheezing, No shortness of breath Cardiac: No chest pain, No PND, No edema Abdomen: No pain, No nausea, No vomiting, No diarrhea Psychiatric: No depression symptoms, No anhedonism Objective Vital Signs Date Time Temp Pulse Resp B/P (MAP) Pulse Ox O2 Delivery O2 Flow Rate FiO2 07/23/17 12:11 36.9 18 156/70 (98) 96 Room Air 07/23/17 08:05 Room Air 07/23/17 07:51 37.2 76 20 125/71 (89) 91 Room Air 07/23/17 04:00 37.4 79 18 152/64 (93) 95 Room Air 07/23/17 04:00 36.8 78 20 130/72 (91) 98 Room Air 07/23/17 01:51 37.9 07/23/17 01:02 18 98 07/23/17 00:02 18 98 07/23/17 00:00 Room Air 07/23/17 00:00 18 94 07/23/17 00:00 18 98 07/22/17 23:59 20 98 07/22/17 23:35 37.8 76 20 126/67 (86) 92 Room Air 07/22/17 23:14 36.8 07/22/17 23:02 20 98 07/22/17 22:18 20 98 07/22/17 22:00 20 98 07/22/17 21:44 38.0 07/22/17 21:02 20 98 07/22/17 20:02 20 98 07/22/17 19:31 20 98 07/22/17 19:18 39.3 87 18 161/69 (99) 91 Room Air 07/22/17 18:31 115/63 (80) 07/22/17 18:29 18 95 07/22/17 17:56 20 94 1/5/18 17:04 37.2 77 20 172/68 (102) 96 Room Air 07/22/17 16:45 38.2 88 20 201/89 (126) 94 Room Air 07/22/17 16:03 18 94 07/22/17 16:03 Room Air 07/22/17 15:25 37.3 84 20 189/71 (110) 96 Room Air 07/22/17 15:08 16 97 Physical Exam General Appearance: WD/WN, no apparent distress Eyes: normal inspection, sclerae normal Neck: supple, no JVD Respiratory/Chest: chest non-tender, lungs clear, normal breath sounds Cardiovascular: regular rate, rhythm (converted to sinus rhythm), no murmur Abdomen: normal bowel sounds, non tender, soft Extremities: + pertinent finding (lgood peripheral cap refill on right leg) Neurologic/Psychiatric: alert, oriented x 3 Laboratory Results Last 24 Hours Test 07/22/17 14:41 07/22/17 20:40 07/23/17 06:05 Bedside Glucose 106 mg/dl White Blood Count 8.65 K/uL 10.09 K/uL Red Blood Count 4.11 M/uL 3.98 M/uL Hemoglobin 13.0 g/dL 12.8 g/dL Hematocrit 39.0 % 37.6 % Mean Corpuscular Volume 94.9 fL 94.5 fL Mean Corpuscular Hemoglobin 31.6 pg 32.2 pg Mean Corpuscular Hemoglobin Concent 33.3 g/dl 34.0 g/dl Platelet Count 186 K/uL 180 K/uL Mean Platelet Volume 9.4 fL 9.8 fL Neutrophils (%) (Auto) 82.5 % 79.2 % Lymphocytes (%) (Auto) 8.1 % 10.0 % Monocytes (%) (Auto) 8.6 % 10.2 % Eosinophils (%) (Auto) 0.2 % 0.1 % Basophils (%) (Auto) 0.1 % 0.2 % Neutrophils # (Auto) 7.14 K/uL 7.99 K/uL Lymphocytes # (Auto) 0.70 K/uL 1.01 K/uL Monocytes # (Auto) 0.74 K/uL 1.03 K/uL Eosinophils # (Auto) 0.02 K/uL 0.01 K/uL Basophils # (Auto) 0.01 K/uL 0.02 K/uL RDW Standard Deviation 44.6 fL 45.1 fL RDW Coefficient of Variation 12.8 % 13.0 % Immature Granulocyte % (Auto) 0.5 % 0.3 % Immature Granulocyte # (Auto) 0.04 K/uL 0.03 K/uL Sodium Level 134 mmol/L Potassium Level 4.0 mmol/L Chloride Level 102 mmol/L Carbon Dioxide Level 24 mmol/L Anion Gap 8.0 mmol/L Blood Urea Nitrogen 19 mg/dl Creatinine 1.34 mg/dl Est Creatinine Clear Calc Drug Dose 42.6 ml/min Estimated GFR () 54.4 Estimated GFR (Non- 47.0 BUN/Creatinine Ratio 13.9 Random Glucose 116 mg/dl Calcium Level 7.9 mg/dl Magnesium Level 1.6 mg/dl Assessment and Plan 86 y/o male wiht post op Afib rvr converted to sinus, after R ASIA with PMHx of Hypothyroidism, HTN, Nephrolithiasis, and BPH S/P TURP S/P R ASIA on 07/22: - DVT prophylaxis -initially chosen to have ASA 325 mg BID, with Cardiology deciding on Xarelto, will discuss with ortho if we can stop aspirin, the dosing for xarelto for afib, with adjustment for renal dysfunction, is 15 mg a day and recommended for post hip DVT prevention is 10 mg so the 15 mg dose will be chosen and likely protective for post op New Onset Atrial Fibrillation: CHADSVASC 3 converted after Metoprolol 25 mg x 1 dose - Dr. Rome recommends to stop Dyazide at discharge and started Metoprolol eventually converting to long acting once a day form by discharge Elevated Creatinine: likely post op MISHA, resolving HTN: better control with metoprolol dosing Hypothyroidism:clinically stable- Synthroid 50 mcg daily Disposition: - [facility]
[2017-07-23] MEDS: OXYCODONE HCL IR 5 MG TAB (IMMEDIATE RELEASE) PO PRN ×2 (17:16→23:28)
[2017-07-23] MEDS: RIVAROXABAN TAB 15 MG TAB PO SCH (18:15)
[2017-07-23] MEDS: ZOLPIDEM TARTRATE 5 MG TAB PO SCH (20:35)
[2017-07-23] MEDS: SENNA 8.6 MG TAB PO SCH (20:36)
[2017-07-24 00:54] VITALS: BP 145/77; PULSE 74; TEMP 36.9; O2SAT 94
[2017-07-24 03:49] VITALS: TEMP 37
[2017-07-24 03:50] VITALS: BP 161/68; PULSE 75; TEMP 37; O2SAT 93
[2017-07-24] MEDS: OXYCODONE HCL IR 5 MG TAB (IMMEDIATE RELEASE) PO PRN ×3 (05:45→21:32)
[2017-07-24] MEDS: ACETAMINOPHEN 500 MG TAB PO SCH ×3 (05:46→21:41)
[2017-07-24] MEDS: LEVOTHYROXINE 50 MCG TAB PO SCH (05:46)
[2017-07-24] MEDS ORDERED: XRL15 PO (07:34)
[2017-07-24] MEDS ORDERED: ULT50X PO (07:34)
[2017-07-24] MEDS ORDERED: TPRSR50 PO (07:34)
[2017-07-24] MEDS ORDERED: ACET-24 PO (07:34)
--- NOTE | 2017-07-24 07:37 | Discharge Instructions ---
Discharge Instructions Date of Service Jul 24, 2017. Admission Reason for Admission: Right Hip Degenerative Joint Disease, Hip Pain Discharge Discharge Diagnosis / Problem: Right Hip Replacement Discharge Goals Goal(s): Decrease discomfort, Improve function, Increase independence, Improve disease control, Therapeutic intervention Activity Recommendations Activity Level: Assistance Required (Total Hip Precautions) Therapies: Physical Therapy, Occupational Therapy Weightbearing Status: Right weightbearing . Additional Information Patient informed of condition: Yes Advance Directives: No DNR: No Level of Care: Skilled Communicable Disease: No Prognosis: Improving Instructions / Follow-Up Instructions / Follow-Up ACTIVITY RECOMMENDATIONS: Physical Therapy: * Aggressive physical therapy is not usually needed. You will learn to take care of yourself safely and walk. * Follow the "Hip Precautions Instructions." * In some cases, the addiction social worker at the hospital will arrange to have a therapist come to your house for the first couple of weeks to help you learn these skills. * You need to practice on your own or with the help of a family member as needed. * When you learn these skills, most of the therapy can be done on your own. Home Exercise: * You were shown a series of exercises in the hospital. Do these exercises three to four times each day including the exercises you were shown in physical therapy. Walking: * Get up and walk several times each day. For the first four weeks, try not to stand or walk for more than one hour at a time. If you do stand or walk for more than one hour, you will not hurt anything, but your leg will likely swell. * As you feel comfortable, you may change from the walker or crutches to a cane and then to independent walking. MEDICATIONS: New Medicine: * You will likely be taking one or more of these medicines: 1. Tramadol - Take, as directed, when you need it, every four to six hours to control your pain. 2. Iron Sulfate - Take three times each day for the month after surgery to help you replace the blood lost during surgery. 3. Xarelto - Thins your blood to lessen the chance of forming a blood clot. * The most common side effects of pain medicine and iron are nausea and constipation. If nausea or constipation is too much of a problem or if you have any questions about your new medicines or doses, call [facility] at . We will try to help you manage these issues. VERY IMPORTANT TO READ AND REVIEW" Pain: * The immediate post-operative period after hip replacement surgery is often quite painful. * You are given a prescription for pain medicine. You should take it, as directed, when you need it, especially before physical therapy and before going to bed. Pain that interferes with sleep is very common and can last several months. * You will likely need pain medicine for the first two to four weeks. It will not stop all of the pain. The pain will lessen and as you feel better, you may change to milder pain medicine such as Tylenol. * The most common side effects of pain medicine are nausea and constipation, so don't take more than you need. SPECIAL CARE INSTRUCTIONS: TEDs/Elastic Stockings: * The white elastic stockings help limit swelling and prevent blood clots from forming in your legs. The more you wear them, the more they work. * Wear them for six weeks. Prevention of Infection: * Take antibiotics one hour before any dental cleaning, dental work, urological procedure, gastrointestinal procedure or any invasive surgery in order to prevent your new joint from getting infected. * You may get the antibiotics from the doctor performing the procedure or you may call our office at before and we will call in a prescription to the pharmacy of your choice. Things to Watch For: * Drainage from the incision site that occurs more than one week after your surgery. * Severely increased leg pain or swelling. * Increased redness at the incision site. * Fever above 102 degrees Fahrenheit. * Unusual chest pain or shortness of breath. * Unusual pain or burning with urination. Call [facility] at with any of the above problems or if you have any questions about your medicines or recovery. FOLLOW UP VISIT: Make an appointment to see your doctor for approximately two weeks after surgery for a progress check and staple removal by calling the office at . Current Hospital Diet Patient's current hospital diet: Regular Diet Discharge Diet Recommended Diet: Regular Diet Procedures Procedures Performed: Right total hip arthroplasty Pending Studies Studies pending at discharge: no Medical Emergencies . Who to Call and When: Medical Emergencies: If at any time you feel your situation is an emergency, please call [phone] immediately. . Non-Emergent Contact Non-Emergency issues call your: Surgeon . . "Provider Documentation" section prepared by Pardeep Rose. . Core Measure Problem Core Measures: None
[2017-07-24 07:43] VITALS: BP 114/60; TEMP 37.9; O2SAT 93
[2017-07-24 07:50] LABS: CALCIUM 8.3 mg/dl (8.5-10.1); CREATININE 1.31 mg/dl (0.60-1.40); POTASSIUM 4.1 mmol/L (3.5-5.1)
[2017-07-24 07:51] LABS: HEMATOCRIT 34.8 % (42-52); HEMOGLOBIN 11.9 g/dL (14.0-18.0); MEAN CELL VOLUME 94.3 fL (80-100); MEAN CORPUSCULAR HEMOGLOBIN 32.2 pg (25-34); MEAN CORPUSCULAR HGB CONC 34.2 g/dl (32-36); MEAN PLATELET VOLUME 9.7 fL (7.4-10.4); PLATELET COUNT 164 K/uL (130-400); RED CELL DISTRIBUTION WIDTH CV 13.1 % (11.5-14.5); RED CELL DISTRIBUTION WIDTH SD 45.2 fL (36.4-46.3); WHITE BLOOD COUNT 7.05 K/uL (4.8-10.8)
--- NOTE | 2017-07-24 08:02 | PROGRESS NOTE ---
DATE: 07/24/2017 SUBJECTIVE: An 86-year-old gentleman postop day #2 from a right total hip replacement. He is doing pretty well. Pain seems to be a little bit better today. No chest pain or shortness of breath. Not feeling dizzy or lightheaded. OBJECTIVE: VITAL SIGNS: Temperature is 37.9. Vital signs stable. EXTREMITIES: Examination of the right hip and leg reveals that the patient is sitting up in bed eating his breakfast. Looks pretty comfortable. Dressing is clean, dry and intact. Hip is located. Thigh is soft and supple. He is neurologically intact. LABORATORY DATA: Pending. ASSESSMENT: An 86-year-old gentleman postop day #2 from a right total hip replacement, complicated by a brief period of atrial fibrillation intraoperatively. He is doing well. Pain seems to be controlled. He has been in sinus rhythm I believe since recovery room. He has been seen by cardiology. Metoprolol dose has been changed and now he has been put on Xarelto. We will start that this morning. PLAN: 1. DVT prophylaxis including thigh high TEDs, SCDs and Xarelto. He is going to be at 15 mg a day based on his age and renal function and this is more than enough for DVT prophylaxis. 2. PT/OT. Weightbear as tolerated. Right total hip protocol. 3. Pain control. Doing reasonably well with current pain regimen. 4. Medical management as per the medicine service. 5. Cardiology. As per the cardiology service. His metoprolol dose has been adjusted and written for. 6. Disposition: The plan is to discharge to the [facility] if accepted. Waiting for insurance approval. We would like to transfer him to the floor today if acceptable for cardiology.
[2017-07-24] MEDS: MULTIVITAMIN TAB PO SCH (08:22)
[2017-07-24] MEDS: FERROUS GLUCONATE 324 MG TAB PO SCH ×3 (08:22→19:27)
[2017-07-24] MEDS: ASPIRIN 81 MG ECTAB PO SCH (08:22)
[2017-07-24] MEDS: PANTOprazole SOD 40 MG TAB PO SCH (08:23)
[2017-07-24] MEDS: DOCUSATE SODIUM 100 MG CAP PO SCH ×2 (08:40→21:32)
[2017-07-24] MEDS: METOPROLOL SUCC 50MG EXT REL TAB PO SCH (09:20)
[2017-07-24] MEDS: HYDROmorphone INJ 0.5 MG/0.5 ML SYR IV PRN ×2 (10:28→17:03)
[2017-07-24 12:38] VITALS: BP 112/58; PULSE 67; TEMP 36.8; O2SAT 95
[2017-07-24] MEDS ORDERED: ACETAMINOPHEN 325 MG TAB ONE (13:49)
--- NOTE | 2017-07-24 14:37 | Progress Note ---
Subjective Date of Service: Jul 24, 2017. Subjective this pt is doing better with improved pain control with oxycodone and remains with normal sinus rhythm Problem List Medical Problems: (1) Shingles Status: Acute Review of Systems Constitutional: + weakness, + fatigue, No fever, No chills Respiratory: No cough, No sputum, No shortness of breath, No dyspnea on exertion Cardiac: No chest pain, No edema Abdomen: No pain, No nausea, No vomiting, No diarrhea Psychiatric: No depression symptoms, No anhedonism, No anxiety Objective Vital Signs Date Time Temp Pulse Resp B/P (MAP) Pulse Ox O2 Delivery O2 Flow Rate FiO2 07/24/17 13:06 36.8 67 18 95 10.0 07/24/17 12:38 36.8 67 18 112/58 (76) 95 Room Air 07/24/17 08:05 Room Air 07/24/17 07:43 37.9 20 114/60 (78) 93 Room Air 07/24/17 03:50 37.0 75 18 161/68 (99) 93 Room Air 07/24/17 03:49 37.0 07/24/17 00:54 36.9 74 18 145/77 (99) 94 07/24/17 00:00 Room Air 07/23/17 19:16 37.2 66 16 145/63 (90) 93 Room Air 07/23/17 16:03 Room Air 07/23/17 15:40 78 154/63 (93) Physical Exam General Appearance: WD/WN, + mild distress Eyes: normal inspection, sclerae normal Respiratory/Chest: chest non-tender, lungs clear, normal breath sounds Cardiovascular: regular rate, rhythm, no murmur Abdomen: normal bowel sounds, non tender, soft Extremities: no pedal edema, no calf tenderness Neurologic/Psychiatric: alert, oriented x 3 Laboratory Results Last 24 Hours Test 07/23/17 17:30 07/24/17 06:41 07/24/17 06:44 Urine Color DK YELLOW Urine Appearance CLOUDY Urine pH 5.0 Urine Specific [place] 1.026 Urine Protein 1+ Urine Glucose (UA) NEG Urine Ketones NEG Urine Occult Blood 3+ Urine Nitrite NEG Urine Bilirubin NEG Urine Urobilinogen NEG Urine Leukocyte Esterase SMALL Urine WBC (Auto) 10-30 /hpf Urine RBC (Auto) >30 /hpf Urine Hyaline Casts (Auto) 5-10 /lpf Urine Epithelial Cells (Auto) 10-20 /lpf Urine Bacteria (Auto) 1+ Sodium Level 133 mmol/L Potassium Level 4.1 mmol/L Chloride Level 103 mmol/L Carbon Dioxide Level 24 mmol/L Anion Gap 6.0 mmol/L Blood Urea Nitrogen 20 mg/dl Creatinine 1.31 mg/dl Est Creatinine Clear Calc Drug Dose 40.2 ml/min Estimated GFR () 55.9 Estimated GFR (Non- 48.3 BUN/Creatinine Ratio 15.2 Random Glucose 104 mg/dl Calcium Level 8.3 mg/dl Magnesium Level 1.9 mg/dl Prostate Specific Antigen 4.590 ng/ml White Blood Count 7.05 K/uL Red Blood Count 3.69 M/uL Hemoglobin 11.9 g/dL Hematocrit 34.8 % Mean Corpuscular Volume 94.3 fL Mean Corpuscular Hemoglobin 32.2 pg Mean Corpuscular Hemoglobin Concent 34.2 g/dl RDW Standard Deviation 45.2 fL RDW Coefficient of Variation 13.1 % Platelet Count 164 K/uL Mean Platelet Volume 9.7 fL Assessment and Plan 86 y/o male wiht post op Afib rvr converted to sinus, after R ASIA with PMHx of Hypothyroidism, HTN, Nephrolithiasis, and BPH S/P TURP S/P R ASIA on 07/22: - DVT prophylaxis, with Cardiology deciding on Xarelto, the dosing for xarelto for afib, with adjustment for renal dysfunction, is 15 mg a day and recommended for post hip DVT prevention is 10 mg so the 15 mg dose will be chosen and likely protective for post op New Onset Atrial Fibrillation: CHADSVASC 3 converted after Metoprolol 25 mg x 1 dose - Dr. Rome recommends to stop Dyazide at discharge and started Metoprolol long acting once a day Elevated Creatinine: likely post op MISHA, resolved HTN: controlled with metoprolol dosing Hypothyroidism:remains stable- Synthroid 50 mcg daily Disposition:family hopes will qualify for [facility] if possible
[2017-07-24] MEDS: RIVAROXABAN TAB 15 MG TAB PO SCH (16:57)
[2017-07-24] MEDS: AMOXICILLIN/CLAVULANATE TAB 875 MG TAB PO SCH (19:27)
[2017-07-24] MEDS: ZOLPIDEM TARTRATE 5 MG TAB PO SCH (21:00)
[2017-07-24] MEDS: SENNA 8.6 MG TAB PO SCH (21:32)
[2017-07-24 23:40] VITALS: BP 151/65; PULSE 74; TEMP 37.4; O2SAT 93
[2017-07-25] MEDS: TRAMADOL HCL 50 MG TAB PO PRN ×2 (01:24→05:50)
[2017-07-25] MEDS: OXYCODONE HCL IR 5 MG TAB (IMMEDIATE RELEASE) PO PRN (04:07)
[2017-07-25] MEDS: LEVOTHYROXINE 50 MCG TAB PO SCH (05:39)
[2017-07-25] MEDS: ACETAMINOPHEN 500 MG TAB PO SCH ×2 (05:40→13:40)
[2017-07-25 06:54] VITALS: BP 134/67; PULSE 71; TEMP 36.8; O2SAT 93
[2017-07-25] MEDS ORDERED: RXC5 PO (07:02)
--- NOTE | 2017-07-25 07:12 | PROGRESS NOTE ---
DATE: 07/25/2017 SUBJECTIVE: An 86-year-old white female postop day 3 from a right total hip replacement. He is doing pretty well. He denies any chest pain or shortness of breath. Still having quite a bit of hip pain particularly with motion and movement. OBJECTIVE: VITAL SIGNS: Temperature 36.8. Vital signs stable. GENERAL: Reveals a pleasant elderly male. He is sitting up in bed and doing some exercises this morning. LUNGS: Clear to auscultation. HEART: Has a regular rate and rhythm. ABDOMEN: Soft, nontender, nondistended. EXTREMITIES: Grossly neurovascularly intact except as follows. Examination of the right lower extremity reveals the dressing to be clean, dry and intact. Hip is located. He is neurologically intact. Thigh is soft and supple. Some mild swelling. LABORATORY DATA: No new labs. ASSESSMENT: An 86-year-old gentleman postop day 3 from a right total hip replacement. He had a brief episode of atrial fibrillation perioperatively. This seems to be resolving back in sinus rhythm. He is on a beta surinder and on Xarelto for thrombosis prophylaxis. PLAN: 1. DVT prophylaxis including thigh high TEDs, SCDs, and Xarelto. 2. PT, OT. Weightbearing as tolerated. Right total hip protocol. 3. Pain control. He is doing pretty reasonably well with current pain medicines. Still having decent amount of subjective pain, but looks reasonably comfortable. He was on pretty significant dose of tramadol preoperatively. 4. Disposition. Plan to discharge to [facility] later today.
--- NOTE | 2017-07-25 07:37 | Anesthesiology Progress Note ---
Anesthesia Post Op Note Date & Time Jul 25, 2017 at 07:36 Vital Signs Vital Signs Past 12 Hours Date Time Temp Pulse Resp B/P (MAP) Pulse Ox O2 Delivery O2 Flow Rate FiO2 07/25/17 06:54 36.8 71 18 134/67 (89) 93 Room Air 07/24/17 23:40 37.4 74 16 151/65 (93) 93 Room Air 07/24/17 23:10 Room Air Notes Mental Status: alert / awake / arousable, participated in evaluation Pt Amnestic to Procedure: Yes Nausea / Vomiting: adequately controlled Pain: adequately controlled Airway Patency, RR, SpO2: stable & adequate BP & HR: stable & adequate Hydration State: stable & adequate Neuraxial Anesthesia: sensory block resolved Anesthetic Complications: no major complications apparent
[2017-07-25 07:56] VITALS: O2SAT 93
[2017-07-25] MEDS: AMOXICILLIN/CLAVULANATE TAB 875 MG TAB PO SCH (08:30)
[2017-07-25] MEDS: FERROUS GLUCONATE 324 MG TAB PO SCH ×2 (08:30→12:30)
[2017-07-25] MEDS: MULTIVITAMIN TAB PO SCH (09:00)
[2017-07-25] MEDS: DOCUSATE SODIUM 100 MG CAP PO SCH (09:00)
[2017-07-25] MEDS: METOPROLOL SUCC 50MG EXT REL TAB PO SCH (09:00)
[2017-07-25] MEDS: ASPIRIN 81 MG ECTAB PO SCH (09:00)
[2017-07-25] MEDS: PANTOprazole SOD 40 MG TAB PO SCH (09:00)
[2017-07-25 09:15] VITALS: BP 146/66
[2017-07-25 09:24] VITALS: BP 124/70; PULSE 69
[2017-07-25] MEDS ORDERED: ONDANSETRON 4MG OD TAB PO STA (09:41)
[2017-07-25] MEDS ORDERED: ONDA4TAB65 PO (09:42)
--- NOTE | 2017-07-25 10:44 | CARDIOLOGY PROGRESS NOTE ---
DATE: 07/25/2017 SUBJECTIVE: Mr. Mcneal is seen at the bedside complaining of nausea. Denies chest pain, dyspnea, and palpitations. OBJECTIVE: VITAL SIGNS: Blood pressure 124/70 with a regular pulse of 70. Respiratory rate is 18 and the patient is afebrile at 36.8 degrees Celsius. Saturation 93% on room air. NECK: Supple with full carotid upstrokes. No carotid bruits. Jugular venous pressure is flat at 90 degrees. There is no thyromegaly. CARDIOVASCULAR: Reveals a regular rhythm with normal S1 and S2. No S3, S4, or murmurs are noted. LUNGS: Clear without rales, rhonchi, or wheeze. ABDOMEN: Soft. EXTREMITIES: Reveal no pitting. LABORATORY DATA: None. IMPRESSION AND PLAN: 1. Status post right total hip replacement -- per Dr. Rose. 2. Paroxysmal atrial fibrillation -- patient remains in sinus rhythm. I agree with discharge on Xarelto 15 mg daily, and metoprolol succinate at 50 mg daily. Aspirin has been reduced to 81 mg daily. 3. Hypertension -- controlled. 4. Mild left ventricular hypertrophy -- with diastolic dysfunction. 5. Mild aortic insufficiency. 6. Disposition -- stable for hospital discharge from a cardiac perspective. We will be happy to see him in follow up as an outpatient.
[2017-07-25 11:36] VITALS: BP 124/66; PULSE 71; TEMP 37.1; O2SAT 94
--- NOTE | 2017-07-25 16:35 | Progress Note ---
Subjective Date of Service: Jul 25, 2017. Subjective this pt is still mildly nauseated, pain control is better. scheduled to go to subacute rehab today Problem List Medical Problems: (1) Shingles Status: Acute Review of Systems Constitutional: No fever, No chills Eyes: No worsening of vision, No eye pain Respiratory: No cough, No shortness of breath Abdomen: + nausea, No pain, No vomiting, No diarrhea Psychiatric: No depression symptoms, No anhedonism Objective Vital Signs Date Time Temp Pulse Resp B/P (MAP) Pulse Ox O2 Delivery O2 Flow Rate FiO2 07/25/17 11:36 37.1 71 18 124/66 (85) 94 Room Air 07/25/17 09:24 69 124/70 (88) 07/25/17 08:21 36.8 71 18 93 Room Air 07/25/17 07:56 93 Room Air 07/25/17 07:25 Room Air 07/25/17 06:54 36.8 71 18 134/67 (89) 93 Room Air 07/24/17 23:40 37.4 74 16 151/65 (93) 93 Room Air 07/24/17 23:10 Room Air 07/24/17 17:03 Room Air Physical Exam General Appearance: WD/WN, + mild distress Respiratory/Chest: chest non-tender, lungs clear, normal breath sounds Cardiovascular: regular rate, rhythm, no murmur Neurologic/Psychiatric: alert, oriented x 3 Assessment and Plan 86 y/o male wiht post op Afib rvr converted to sinus, after R ASIA with PMHx of Hypothyroidism, HTN, Nephrolithiasis, and BPH S/P TURP S/P R ASIA on 07/22: - DVT prophylaxis, with Cardiology deciding on Xarelto, the dosing for xarelto for afib, with adjustment for renal dysfunction, is 15 mg a day and recommended for post hip DVT prevention is 10 mg so the 15 mg dose will be chosen and likely protective for post op New Onset Atrial Fibrillation: CHADSVASC 3 converted after Metoprolol 25 mg x 1 dose - Dr. Rome recommends to stop Dyazide at discharge and started Metoprolol long acting once a day Elevated Creatinine: likely post op MISHA, resolved HTN: controlled with metoprolol dosing Hypothyroidism:remains stable- Synthroid 50 mcg daily mild nausea suspected from medication use prn zofran and stop antibiotics, will follow up on urine culture
== END 2017-07-25 14:30 | disposition home or self-care (01) | DRG 470 ==
LOC: C.ACU 05:04 → C.2T 08:51 → ENRESERV 12:30 → EDBEDREQ 07-24 14:03 → CANRESERV 07-24 14:13 → ENRESERV 07-24 14:13 → EDBEDREQSVC 07-24 14:26 → ENRESERV 07-24 15:20 → C.3E 07-24 16:08
PROVIDERS: ADMIT Orthopaedic Surgery Sports Medicine; ATTEND Orthopaedic Surgery Sports Medicine
PROC: 0SR90JA Replacement of Right Hip Joint with Synthetic Substitute, Uncemented, Open Approach (ICD-10-PCS; principal; 2017-07-22 07:00)
DX: M16.11 Unilateral primary osteoarthritis, right hip (principal); N17.9 Acute kidney failure, unspecified; I48.0 Paroxysmal atrial fibrillation; I10 Essential (primary) hypertension; E03.9 Hypothyroidism, unspecified; I35.1 Nonrheumatic aortic (valve) insufficiency; Z79.82 Long term (current) use of aspirin; Z79.899 Other long term (current) drug therapy; Z85.51 Personal history of malignant neoplasm of bladder; Z90.79 Acquired absence of other genital organ(s); Z87.442 Personal history of urinary calculi; Z96.1 Presence of intraocular lens

== ENCOUNTER → 2017-07-29 | Outpatient (CLI) | payer BC ==
[~2017-07-29] MED LIST changes: -ACET-1256 PO; +ACET-24 PO; +ATOR10TA82 PO; +ONDA4TAB65 PO; +RXC5 PO; +TPRSR50 PO; -TRAM-10 PO; +ULT50X PO; +XRL15 PO
[2017-07-29 09:32] LABS: HEMATOCRIT 35.9 % (42-52); MEAN CORPUSCULAR HEMOGLOBIN 31.7 pg (25-34); MEAN CORPUSCULAR HGB CONC 33.4 g/dl (32-36); MEAN PLATELET VOLUME 9.6 fL (7.4-10.4); PLATELET COUNT 280 K/uL (130-400); RED CELL DISTRIBUTION WIDTH CV 13.2 % (11.5-14.5); RED CELL DISTRIBUTION WIDTH SD 45.9 fL (36.4-46.3); WHITE BLOOD COUNT 4.87 K/uL (4.8-10.8)
[2017-07-29 09:40] LABS: BLOOD UREA NITROGEN 23 mg/dl (7-18); CARBON DIOXIDE 28 mmol/L (21-32); CREATININE 0.99 mg/dl (0.60-1.40); GLUCOSE 98 mg/dl (70-99); POTASSIUM 3.8 mmol/L (3.5-5.1); SODIUM 141 mmol/L (136-145)
== END ==
LOC: C.LABVPSUA 08:27
PROVIDERS: ATTEND Internal Medicine Critical Care Medicine
DX: R10.9 Unspecified abdominal pain (principal)

== ENCOUNTER → 2017-08-18 | Outpatient (CLI) | payer BC ==
[~2017-08-18] MED LIST changes: -ONDA4TAB65 PO
== END | disposition home or self-care (01) ==
LOC: C.LABSPEC 17:17
PROVIDERS: ATTEND Urology
DX: R35.1 Nocturia (principal); N40.1 Benign prostatic hyperplasia with lower urinary tract symptoms; C67.9 Malignant neoplasm of bladder, unspecified

== ENCOUNTER 2018-02-13 20:06 | Inpatient (IN) | payer BC, OTHER ==
[~2018-02-13] VITALS: Ht 177.8 cm; Wt 81.8 kg
[2018-02-13] MEDS ORDERED: ONDANSETRON INJ 2 MG/ML 2 ML VIAL IV STA ×2 (20:45→23:24)
[2018-02-13] MEDS: HYDROmorphone INJ 0.5 MG/0.5 ML SYR IV PRN ×3 (21:07→23:19)
[2018-02-13 21:11] LABS: BASO % 0.2 %; BASO ABS # 0.01 K/uL (0-0.2); EOS % 1.2 %; EOS ABS # 0.06 K/uL (0-0.5); HEMATOCRIT 42.3 % (42-52); HEMOGLOBIN 14.4 g/dL (14.0-18.0); IG# 0.01 K/uL (0.00-0.02); LYMPH % 8.4 %; LYMPH ABS # 0.41 K/uL (1.2-3.4); MEAN CELL VOLUME 93.6 fL (80-100); MEAN CORPUSCULAR HEMOGLOBIN 31.9 pg (25-34); MEAN PLATELET VOLUME 9.5 fL (7.4-10.4); MONO % 11.2 %; MONO ABS # 0.55 K/uL (0.11-0.59); NEUT % 78.8 %; NEUT ABS # 3.85 K/uL (1.4-6.5); PLATELET COUNT 175 K/uL (130-400); RED CELL DISTRIBUTION WIDTH CV 14.1 % (11.5-14.5); RED CELL DISTRIBUTION WIDTH SD 48.3 fL (36.4-46.3); WHITE BLOOD COUNT 4.89 K/uL (4.8-10.8)
[2018-02-13 21:28] LABS: CALCIUM 8.4 mg/dl (8.5-10.1); CREATININE 1.11 mg/dl (0.60-1.40); POTASSIUM 3.8 mmol/L (3.5-5.1)
[2018-02-13] MEDS ORDERED: METO-217 PO (22:25)
[2018-02-13] MEDS ORDERED: RIVA1.5T PO (22:25)
--- NOTE | 2018-02-13 22:34 | DIAGNOSTIC IMAGING REPORT ---
LUMBAR SPINE MRI HISTORY: severe right leg and sciatic pain. TECHNIQUE: Multiplanar multisequence MRI of the lumbar spine was performed without the use of contrast. COMPARISON: Lumbar spine 12/30/2016. FINDINGS: For the purpose of the report the L5-S1 disc space will be located on axial image 27 of 30. No fracture or subluxation. The conus terminates at the L1-L2 disc space. There are small Schmorl's nodes at L4 and L5. Minimal disc space narrowing at L3-L4 and L4-L5. Moderate to severe facet osteoarthritis throughout the lumbar spine most pronounced at the L4-L5 and L5-S1 levels. Paraspinal soft tissues are unremarkable. Multiple bilateral peripelvic renal cysts. No change in the 3.7 cm infrarenal abdominal aortic aneurysm. L1-L2: Small broad-based posterior disc bulge with bilateral facet hypertrophy resulting and mild central canal and mild bilateral neural foraminal narrowing. L2-L3: Broad-based posterior disc bulge with bilateral facet hypertrophy resulting in moderate to severe central canal and mild bilateral neural foraminal narrowing. L3-L4: Broad-based posterior disc bulge with a right extra foraminal disc extrusion best seen on axial image 15 of 30. This disc extrusion measures 1 cm. There is severe central canal narrowing and severe right-sided neural foraminal narrowing. The right extraforaminal disc extrusion likely compresses the exiting L3 nerve root. There is mild left-sided neural foraminal narrowing. L4-L5: Broad-based posterior disc bulge with a small focal central disc protrusion resulting in severe central canal narrowing. The central canal measures 1.5 mm in AP diameter. Mild to moderate bilateral neural foraminal narrowing. L5-S1: Broad-based posterior disc bulge with severe facet hypertrophy resulting in severe central canal and severe bilateral neural foraminal narrowing. The right lateral disc osteophyte complex displaces the exiting right L5 nerve root. IMPRESSION: 1. Multilevel lumbar spondylosis as described above resulting in severe central canal narrowing at the L3-L4, L4-L5 and L5-S1 levels. 2. There is also a right extra foraminal disc extrusion at L3-L4 which likely displaces/compresses the exiting right L3 nerve root. 3. There is an associated right lateral disc osteophyte complex at L5-S1 which displaces the exiting right L5 nerve root. 4. Additional degenerative changes as described above. 5. Redemonstration of the 3.7 cm infrarenal abdominal aortic aneurysm. Electronically signed by: Dave Ramos M.D. 02/13/2018 10:33 PM Dictated Date/Time: 02/13/2018 10:18 PM
[2018-02-13] MEDS ORDERED: DEXAMETHASONE **PF** INJ 10 MG/ML VIAL IV ONE (23:00)
[2018-02-14] VITALS (7 sets, daily range): BP systolic 156–228; BP diastolic 64–96; PULSE 65–74; TEMP 36.5–36.9; O2SAT 91–94; Ht 177.8 cm; Wt 81.8 kg
[2018-02-14] MEDS ORDERED: ACETAMINOPHEN 325 MG TAB PO PRN
[2018-02-14] MEDS ORDERED: DOCUSATE SODIUM 100 MG CAP PO PRN
[2018-02-14] MEDS ORDERED: MAGNESIUM HYDROXIDE SUSP 30 ML UDC PO PRN
[2018-02-14 00:22] LABS: INR 1.1 (0.9-1.1)
[2018-02-14 00:26] LABS: PHOSPHORUS 2.7 mg/dl (2.5-4.9)
--- NOTE | 2018-02-14 00:29 | History and Physical ---
History & Physical Date & Time of Service: Feb 14, 2018 at 00:20 Chief Complaint: Severe Pain Upper Rt Thigh Primary Care Physician: Steve Torres M.D. History of Present Illness Source: patient, friend Mr. Mcneal is a pleasant 87yo C male with history of PAF on Xarelto anticoagulation, Hypothyroidism, HTN presenting with severe right hip thigh pain. Pain is 10/10, running from his right hip to his thigh and into his knee. Worse when he lifts his leg and bears weight. Improved somewhat with rest. Patient states that appx 6 days ago he was doing some work on a pipe in a [place]. He feels that he strained himself and pulled a muscle. He denies trauma, fall or hearing a pop or a crack. His pain progressively worsened over the past 6 days. He was seen yesterday by Dr. Rose of Orthopedics who is familiar with the patient from a prior [place]. The prosthesis was imaged and was found to be fine. Patient was taking Tylenol, Tramadol and using heat as needed with only mild relief. He began to feel some weakness of his right leg today as well as numbness of the plantar surface of his right foot with difficulty ambulating. He denies fevers/chills, denies bowel/bladder incontinence or urinary retention. No additional complaints at this time. MRI performed in the ER confirms multilevel lumbar spondylosis with severe central canal narrowing at the L3-L4, L4-L5 and L5-S1 levels as well as a right extra foraminal disc extrusion at L3-L4 which likely displaces/compresses the exiting right L3 nerve root. Osteophyte at L5-S1 which displaces the exiting right L5 nerve root and a stable AAA. 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 Right ureteral stent TURP Right inguinal hernia Bladder CA 2013 Family History Cancer Omitted due to advanced age Social History Smoking Status: Never Smoker Smokeless Tobacco Use: No Alcohol Use: socially Drug Use: none Marital Status: Housing status: lives with family Occupational Status: retired Immunizations History of Influenza Vaccine: Yes Influenza Vaccine Date: Aug 03, 2012 History of Tetanus Vaccine?: Yes History of Pneumococcal: Yes Pneumococcal Date: Aug 03, 2012 History of Hepatitis B Vaccine: Unknown Allergies Coded Allergies: No Known Allergies (Verified , 07/22/17) Home Medications Scheduled Metoprolol Succinate (Toprol Xl), 50 MG PO DAILY Rivaroxaban (Xarelto), 15 MG PO DAILY Review of Systems Constitutional: No fever, No chills, No sweats Eyes: No worsening of vision ENT: No hearing loss, No sore throat, No trouble swallowing Respiratory: No cough, No shortness of breath Cardiovascular: No chest pain, No palpitations Abdomen: No pain Musculoskeletal: No joint pain Genitourinary - Male: No urinary frequency, No urinary urgency Neurologic: + weakness, No paralysis Endocrine: No fatigue Hematologic / Lymphatic: No abnormal bleeding/bruising Integumentary: No rash Physical Exam Vital Signs Date Time Temp Pulse Resp B/P (MAP) Pulse Ox O2 Delivery O2 Flow Rate FiO2 02/13/18 22:44 62 22 191/80 93 Room Air 02/13/18 22:06 63 02/13/18 22:04 65 21 201/85 93 Room Air 02/13/18 21:05 94 Room Air 02/13/18 20:10 36.6 71 18 203/80 94 Room Air General: patient resting comfortably in bed, NAD, AA&O x 4 Skin: warm, dry, intact, no rashes or lesions HEENT: NC/AT, PERRL, EOMI, anicteric sclera, conjunctiva without injection, nares patent, moist mucus membranes, no oropharyngeal lesions, neck supple, trachea midline, no thyromegaly, no LAD Heart: +S1/S2, regular, no m/r/g Lungs: equal air entry bilaterally, no rales/rhonchi/wheezes Abdomen: soft, NT/ND, no masses/organomegaly/ascites Extremities: warm, well perfused, no clubbing/cyanosis or edema, 2+ palpable pulses in UE/LE bilaterally Neuro: numbness on plantar surface of right foot with light touch, MS 4/5 in RLE secondary to pain Diagnostics Laboratory Results Results Past 24 Hours Test 02/13/18 21:03 Range/Units White Blood Count 4.89 4.8-10.8 K/uL Red Blood Count 4.52 4.7-6.1 M/uL Hemoglobin 14.4 14.0-18.0 g/dL Hematocrit 42.3 42-52 % Mean Corpuscular Volume 93.6 80-100 fL Mean Corpuscular Hemoglobin 31.9 25-34 pg Mean Corpuscular Hemoglobin Concent 34.0 32-36 g/dl Platelet Count 175 130-400 K/uL Mean Platelet Volume 9.5 7.4-10.4 fL Neutrophils (%) (Auto) 78.8 % Lymphocytes (%) (Auto) 8.4 % Monocytes (%) (Auto) 11.2 % Eosinophils (%) (Auto) 1.2 % Basophils (%) (Auto) 0.2 % Neutrophils # (Auto) 3.85 1.4-6.5 K/uL Lymphocytes # (Auto) 0.41 1.2-3.4 K/uL Monocytes # (Auto) 0.55 0.11-0.59 K/uL Eosinophils # (Auto) 0.06 0-0.5 K/uL Basophils # (Auto) 0.01 0-0.2 K/uL RDW Standard Deviation 48.3 36.4-46.3 fL RDW Coefficient of Variation 14.1 11.5-14.5 % Immature Granulocyte % (Auto) 0.2 % Immature Granulocyte # (Auto) 0.01 0.00-0.02 K/uL Erythrocyte Sedimentation Rate 8 0-14 mm/hr Sodium Level 139 136-145 mmol/L Potassium Level 3.8 3.5-5.1 mmol/L Chloride Level 107 98-107 mmol/L Carbon Dioxide Level 26 21-32 mmol/L Anion Gap 5.0 3-11 mmol/L Blood Urea Nitrogen 18 7-18 mg/dl Creatinine 1.11 0.60-1.40 mg/dl Est Creatinine Clear Calc Drug Dose 46.6 ml/min Estimated GFR () 67.9 Estimated GFR (Non- 58.6 BUN/Creatinine Ratio 15.8 10-20 Random Glucose 126 70-99 mg/dl Calcium Level 8.4 8.5-10.1 mg/dl C-Reactive Protein 0.97 0-0.29 mg/dl Diagnostic Radiology LUMBAR SPINE MRI HISTORY: severe right leg and sciatic pain. TECHNIQUE: Multiplanar multisequence MRI of the lumbar spine was performed without the use of contrast. COMPARISON: Lumbar spine 12/30/2016. FINDINGS: For the purpose of the report the L5-S1 disc space will be located on axial image 27 of 30. No fracture or subluxation. The conus terminates at the L1-L2 disc space. There are small Schmorl's nodes at L4 and L5. Minimal disc space narrowing at L3-L4 and L4-L5. Moderate to severe facet osteoarthritis throughout the lumbar spine most pronounced at the L4-L5 and L5-S1 levels. Paraspinal soft tissues are unremarkable. Multiple bilateral peripelvic renal cysts. No change in the 3.7 cm infrarenal abdominal aortic aneurysm. L1-L2: Small broad-based posterior disc bulge with bilateral facet hypertrophy resulting and mild central canal and mild bilateral neural foraminal narrowing. L2-L3: Broad-based posterior disc bulge with bilateral facet hypertrophy resulting in moderate to severe central canal and mild bilateral neural foraminal narrowing. L3-L4: Broad-based posterior disc bulge with a right extra foraminal disc extrusion best seen on axial image 15 of 30. This disc extrusion measures 1 cm. There is severe central canal narrowing and severe right-sided neural foraminal narrowing. The right extraforaminal disc extrusion likely compresses the exiting L3 nerve root. There is mild left-sided neural foraminal narrowing. L4-L5: Broad-based posterior disc bulge with a small focal central disc protrusion resulting in severe central canal narrowing. The central canal measures 1.5 mm in AP diameter. Mild to moderate bilateral neural foraminal narrowing. L5-S1: Broad-based posterior disc bulge with severe facet hypertrophy resulting in severe central canal and severe bilateral neural foraminal narrowing. The right lateral disc osteophyte complex displaces the exiting right L5 nerve root. IMPRESSION: 1. Multilevel lumbar spondylosis as described above resulting in severe central canal narrowing at the L3-L4, L4-L5 and L5-S1 levels. 2. There is also a right extra foraminal disc extrusion at L3-L4 which likely displaces/compresses the exiting right L3 nerve root. 3. There is an associated right lateral disc osteophyte complex at L5-S1 which displaces the exiting right L5 nerve root. 4. Additional degenerative changes as described above. 5. Redemonstration of the 3.7 cm infrarenal abdominal aortic aneurysm. Electronically signed by: Dave Ramos M.D. 02/13/2018 10:33 PM Impression Assessment and Plan 87yo C male presenting with 6 days of progressive right hip/thigh pain. Patient unable to ambulate secondary to pain and developing numbness. MRI with multiple levels of canal narrowing as well as extraforaminal disc extrusion at L3-L4 with compression of L3 nerve root, osteophyte complex at L5-S1 with displacement of L5 nerve root. 1. Disc extrusion with nerve root compression - most likely etiology of patient 's discomfort. Administered Dexamethasone in ER and Dilaudid x 3 doses resulting in mild nausea -Observation to medical floor -Pain control with Tylenol PRN, Morphine 1mg IV q 2 hours PRN, Flexeril 5mg po daily -Colace 100mg po BID PRN constipation -Orthopedic surgery consultation - appreciate assistance with this case -PT consultation 2. HTN - patient hypertensive at 191/80, most likely secondary to pain as well as underlying h/o hypertension -Pain control as above -Hydralazine 10mg IV q 4 hours PRN SBP > 190 mmHg 3. PAF - Patient rate controlled on Metoprolol daily, anticoagulated on Xarelto -Continue Metoprolol daily at home dose -Hold Xarelto for now in case of surgical intervention 4. Hypothyroidism - patient no longer takes a thyroid medication -monitor 5. F/E/N - Heplock. Monitor electrolytes and replete as needed. AHA diet as tolerated. 6. Ppx - patient on Xarelto anticoagulation, currently being held. Will need to start prophylaxis if Xarelto continues to be held. 7. Code - Full per discussion with patient 8. Dispo - Observation to medical unit Resuscitation Status FULL VTE Prophylaxis Will order VTE Prophylaxis: Yes
[2018-02-14] MEDS ORDERED: LABETALOL HCL IV 5 MG/ML 20ML IV PRN (00:45)
[2018-02-14] MEDS ORDERED: HydrALAZINE HCL 20 MG/ML VIAL IV. PRN (01:00)
[2018-02-14] MEDS: MoRPHine SULFATE 2 MG/ML CARP IV PRN ×3 (01:25→06:22)
[2018-02-14] MEDS ORDERED: IV FLUIDS COMPLETED PRN (01:30)
[2018-02-14] MEDS: ONDANSETRON INJ 2 MG/ML 2 ML VIAL IV PRN ×3 (02:25→17:27)
--- NOTE | 2018-02-14 04:08 | EMERGENCY ROOM VISIT NOTE ---
History Report prepared by Daniel: Lori Mauricio Under the Supervision of: Dr. Mitchell Up M.D. First contact with patient: 20:15 Chief Complaint: HIP PAIN Stated Complaint: SEVERE PAIN UPPER RT THIGH History of Present Illness The patient is an 87 year old male who presents to the Emergency Room with complaints of severe and worsening hip pain that started about 6 days ago. The patient states that his pain runs from his right hip/buttock area down his thigh and into his knee, and he rates his pain a 10 out of 10. He notes he does not feel pain when he moves his leg side to side, but feels excruciating pain when he lifts his leg. He also notes that lying down somewhat alleviates the pain. The patient denies tingling or weakness down his leg, but states that he cannot put weight on it. The patient states he has been applying heat to treat his pain, and has taken Tramadol and Tylenol with no relief. The patient states that 6 days ago, he was going down a [place]ik area on his [place] and was having a hard time getting down and coming back. He states he did not fall, but noticed some leg pain that he attributed to pulling a muscle. The patient states he had a hip replacement on July 22, [address] Rose and saw him earlier today. He had x-rays performed and was given a clean past by orthopedics. The patient also reports a history of kidney stones. The patient notes he took all of his daily medications today. He also notes he had mild diarrhea today, but he believes it is secondary to something he ate. 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 Pt denies trauma, LOC, headache, going pain , back pain, neck pain, fevers, chills, malaise, night sweats, weight loss, history of malignancy, chest pain, breathing difficulties, abdominal pain, saddle parasthesias, bowel or bladder dysfunction, numbness, weakness, urinary symptoms, or other complaints. Source of History: patient Onset: 6 days ago Position: other (hip) Symptom Intensity: severe Quality: other (pain) Timing: worsening Modifying Factors (Worsening): other (lifting his leg) Associated Symptoms: + diarrhea Review of Systems See HPI for pertinent positives and negatives. A total of ten systems were reviewed and were otherwise negative. Past Medical & Surgical Medical Problems: (1) CALCULUS OF URETER (2) CERV SPONDYL W MYELOPATH (3) Intractable pain (4) Kidney stones (5) Right Hip DJD (6) Sciatica Surgical Problems: (1) History of hip replacement Family History Cancer Omitted due to advanced age Social History Smoking Status: Never Smoker Drug Use: none Marital Status: Housing Status: lives with significant other Occupation Status: retired Current/Historical Medications Scheduled Metoprolol Succinate (Toprol Xl), 50 MG PO DAILY Rivaroxaban (Xarelto), 15 MG PO DAILY Allergies Coded Allergies: No Known Allergies (Verified , 07/22/17) Physical Exam Vital Signs Date Time Temp Pulse Resp B/P (MAP) Pulse Ox O2 Delivery O2 Flow Rate FiO2 02/13/18 22:44 62 22 191/80 93 Room Air 02/13/18 22:06 63 02/13/18 22:04 65 21 201/85 93 Room Air 02/13/18 21:05 94 Room Air 02/13/18 20:10 36.6 71 18 203/80 94 Room Air Physical Exam GENERAL: Awake, alert, uncomfortable-appearing, in no distress HENT: Normocephalic, atraumatic. Oropharynx unremarkable. EYES: Normal conjunctiva. Sclera non-icteric. NECK: Supple. No nuchal rigidity. FROM. No masses. RESPIRATORY: Clear to auscultation. No wheezes. No rales. Normal respiratory effort. CARDIAC: Normal rate. Normal rhythm. No murmurs. No rubs. Extremities warm and well perfused. Pulses equal. No JVD. GI: Soft, non-distended. No tenderness to palpation. No rebound or guarding. No masses. RECTAL: Deferred. MUSCULOSKELETAL: Atraumatic. Chest examination reveals no tenderness. The back is symmetrical on inspection without obvious abnormality. Tenderness in the right sciatic notch. No joint edema. LOWER EXTREMITIES: Calves are equal size bilaterally and non-tender. No edema. No discoloration. Positive right SLR. NEURO: Normal sensorium. No sensory or motor deficits noted. Weakness in EHL on the right side. SKIN: No rash or jaundice noted. Medical Decision & Procedures ER Provider Diagnostic Interpretation: Radiology results as stated below per my review and radiologist interpretation: LUMBAR SPINE MRI HISTORY: severe right leg and sciatic pain. TECHNIQUE: Multiplanar multisequence MRI of the lumbar spine was performed without the use of contrast. COMPARISON: Lumbar spine 12/30/2016. FINDINGS: For the purpose of the report the L5-S1 disc space will be located on axial image 27 of 30. No fracture or subluxation. The conus terminates at the L1-L2 disc space. There are small Schmorl's nodes at L4 and L5. Minimal disc space narrowing at L3-L4 and L4-L5. Moderate to severe facet osteoarthritis throughout the lumbar spine most pronounced at the L4-L5 and L5-S1 levels. Paraspinal soft tissues are unremarkable. Multiple bilateral peripelvic renal cysts. No change in the 3.7 cm infrarenal abdominal aortic aneurysm. L1-L2: Small broad-based posterior disc bulge with bilateral facet hypertrophy resulting and mild central canal and mild bilateral neural foraminal narrowing. L2-L3: Broad-based posterior disc bulge with bilateral facet hypertrophy resulting in moderate to severe central canal and mild bilateral neural foraminal narrowing. L3-L4: Broad-based posterior disc bulge with a right extra foraminal disc extrusion best seen on axial image 15 of 30. This disc extrusion measures 1 cm. There is severe central canal narrowing and severe right-sided neural foraminal narrowing. The right extraforaminal disc extrusion likely compresses the exiting L3 nerve root. There is mild left-sided neural foraminal narrowing. L4-L5: Broad-based posterior disc bulge with a small focal central disc protrusion resulting in severe central canal narrowing. The central canal measures 1.5 mm in AP diameter. Mild to moderate bilateral neural foraminal narrowing. L5-S1: Broad-based posterior disc bulge with severe facet hypertrophy resulting in severe central canal and severe bilateral neural foraminal narrowing. The right lateral disc osteophyte complex displaces the exiting right L5 nerve root. IMPRESSION: 1. Multilevel lumbar spondylosis as described above resulting in severe central canal narrowing at the L3-L4, L4-L5 and L5-S1 levels. 2. There is also a right extra foraminal disc extrusion at L3-L4 which likely displaces/compresses the exiting right L3 nerve root. 3. There is an associated right lateral disc osteophyte complex at L5-S1 which displaces the exiting right L5 nerve root. 4. Additional degenerative changes as described above. 5. Redemonstration of the 3.7 cm infrarenal abdominal aortic aneurysm. Electronically signed by: Dave Ramos M.D. 02/13/2018 10:33 PM Dictated Date/Time: 02/13/2018 10:18 PM Laboratory Results 02/13/18 21:03 Red Blood Count 4.52, Mean Corpuscular Volume 93.6, Mean Corpuscular Hemoglobin 31.9, Mean Corpuscular Hemoglobin Concent 34.0, Mean Platelet Volume 9.5, Neutrophils (%) (Auto) 78.8, Lymphocytes (%) (Auto) 8.4, Monocytes (%) (Auto) 11.2, Eosinophils (%) (Auto) 1.2, Basophils (%) (Auto) 0.2, Neutrophils # (Auto ) 3.85, Lymphocytes # (Auto) 0.41, Monocytes # (Auto) 0.55, Eosinophils # (Auto ) 0.06, Basophils # (Auto) 0.01 02/13/18 21:03 Test 02/13/18 21:03 White Blood Count 4.89 K/uL (4.8-10.8) Red Blood Count 4.52 M/uL (4.7-6.1) Hemoglobin 14.4 g/dL (14.0-18.0) Hematocrit 42.3 % (42-52) Mean Corpuscular Volume 93.6 fL (80-100) Mean Corpuscular Hemoglobin 31.9 pg (25-34) Mean Corpuscular Hemoglobin Concent 34.0 g/dl (32-36) Platelet Count 175 K/uL (130-400) Mean Platelet Volume 9.5 fL (7.4-10.4) Neutrophils (%) (Auto) 78.8 % Lymphocytes (%) (Auto) 8.4 % Monocytes (%) (Auto) 11.2 % Eosinophils (%) (Auto) 1.2 % Basophils (%) (Auto) 0.2 % Neutrophils # (Auto) 3.85 K/uL (1.4-6.5) Lymphocytes # (Auto) 0.41 K/uL (1.2-3.4) Monocytes # (Auto) 0.55 K/uL (0.11-0.59) Eosinophils # (Auto) 0.06 K/uL (0-0.5) Basophils # (Auto) 0.01 K/uL (0-0.2) RDW Standard Deviation 48.3 fL (36.4-46.3) RDW Coefficient of Variation 14.1 % (11.5-14.5) Immature Granulocyte % (Auto) 0.2 % Immature Granulocyte # (Auto) 0.01 K/uL (0.00-0.02) Erythrocyte Sedimentation Rate 8 mm/hr (0-14) Prothrombin Time 11.4 SECONDS (9.0-12.0) Prothromb Time International Ratio 1.1 (0.9-1.1) Anion Gap 5.0 mmol/L (3-11) Est Creatinine Clear Calc Drug Dose 46.6 ml/min Estimated GFR () 67.9 Estimated GFR (Non- 58.6 BUN/Creatinine Ratio 15.8 (10-20) Calcium Level 8.4 mg/dl (8.5-10.1) Phosphorus Level 2.7 mg/dl (2.5-4.9) Magnesium Level 1.9 mg/dl (1.8-2.4) C-Reactive Protein 0.97 mg/dl (0-0.29) Laboratory results reviewed by me Medications Administered Medications (Trade) Dose Ordered Sig/Sushil Route Start Time Stop Time Status Last Admin Dose Admin Ondansetron HCl (Zofran Inj) 4 mg NOW STAT IV 02/13/18 20:45 02/13/18 20:49 DC 02/13/18 21:06 4 MG Hydromorphone HCl (Dilaudid Inj) 0.5 mg Q15M PRN IV 02/13/18 20:45 02/14/18 00:45 DC 02/13/18 23:19 0.5 MG Dexamethasone Sodium Phosphate (Dexamethasone Inj Pf) 10 mg NOW ONCE IV 02/13/18 23:00 02/13/18 23:01 DC 02/13/18 23:00 10 MG Ondansetron HCl (Zofran Inj) 4 mg NOW STAT IV 02/13/18 23:24 02/13/18 23:25 DC 02/13/18 23:24 4 MG Morphine Sulfate (MoRPHine SULFATE INJ) 1 mg Q2H PRN IV 02/14/18 00:00 02/28/18 00:00 02/14/18 03:46 1 MG ED Course 2018: The patient was evaluated in room B4. A complete history and physical exam was performed. 2044: Ordered Dilaudid Inj 0.5 mg IV, Zofran Inj 4 mg IV. 2208: I checked on the patient and updated him on his results. The patient is feeling better and states that his pain is down to a 4 out of 10. 2257: Discussed the patient's case with Dr. Leal - Orthopedic Surgery, [facility]. If patient is comfortable enough to go home, Dr. Leal asks that he sees the patient tomorrow morning at 1050. If the patient is too uncomfortable to leave, Dr. Leal says he will see the patient on his rounds tomorrow. 2300: Ordered Dexamethasone Sodium Phosphate 10 mg IV. 2324: Ordered Zofran Inj 4 mg IV. Second dose administered because patient was nauseated after 3 doses of pain medication and vomited. 2334: Upon reexamination, the patient was too uncomfortable to be discharged. I discussed the test results and treatment plan with Dr. Rose - Hospitalist [facility]. The patient will be evaluated for further management. Medical Decision Prior records/ancillary studies reviewed. Triage Nursing notes reviewed and agree them. The patient's history was concerning for right leg pain. Differential diagnosis: Etiologies such as sciatica, cauda equina, fracture, aortic disease, metastatic disease, cord compression, discitis, infection, renal colic, gastrointestinal, as well as others were entertained. Physical findings: As above. Positive right sided straight leg raise. Benign abdomen. ER treatment provided: IV Zofran IV Dilaudid times multiple doses On reassessment the patient moderate pain control but was still uncomfortable. He became nauseated and vomited IV Zofran On reassessment the patient felt better. IV Decadron Diagnostics interpreted by me: The labs revealed an unremarkable CBC and chemistry panel. Unremarkable inflammatory markers. Imaging studies: MRI as above Consultation: A consultation was placed with Dr leal of orthopedic spine. He noted that he would see the patient in the office if he is comfortable enough to go home. If the patient was still having symptoms then he would see him in the hospital in consultation after medicine admission. Given the patient's level of discomfort after 3 doses of IV Dilaudid along with the vomiting and 2 doses of IV Zofran for the management in the hospital was deemed appropriate. Consultation was made with the hospitalist service. The case was discussed and diagnostics were reviewed. The patient was evaluated in the ER for further treatment. Medication Reconcilliation Current Medication List: was personally reviewed by me Blood Pressure Screening Patient's blood pressure: Elevated blood pressure (Blood pressure will be monitored by hospitalist) Consults Time Called: 2255 Consulting Physician[facility] Returned Call: [phone] Discussed the patient's case. If patient is comfortable enough to go home, Dr. Leal asks that he sees the patient tomorrow morning at 1050. If the patient is too uncomfortable to leave, Dr. Leal says he will see the patient on his rounds tomorrow. Additional Consults: Time Called: 2331 Consulted Physician: Dr. Rose - Hospitalist [facility] Returned Call: [phone] Additional Comments: Discussed the patient's case. The patient will be evaluated for further treatment and disposition. Impression Primary Impression: Lumbar disc herniation Additional Impressions: Intractable back pain Vomiting Hypertension Scribe Attestation The scribe's documentation has been prepared under my direction and personally reviewed by me in its entirety. I confirm that the note above accurately reflects all work, treatment, procedures, and medical decision making performed by me. Departure Information Dispostion Being Evaluated By Hospitalist Referrals Steve Torres M.D. (PCP) Patient Instructions My [facility] Problem Qualifiers
[2018-02-14] MEDS ORDERED: HYDROmorphone INJ 0.5 MG/0.5 ML SYR IV STA (04:52)
[2018-02-14] MEDS ORDERED: HYDROmorphone INJ 0.5 MG/0.5 ML SYR ONE (04:57)
[2018-02-14] MEDS ORDERED: MoRPHine SULFATE 2 MG/ML CARP IV PRN (08:00)
[2018-02-14] MEDS ORDERED: OXYCODONE/ACETAMINOPHEN 5-325 TAB PO PRN (08:00)
[2018-02-14] MEDS ORDERED: MoRPHine SULFATE 4 MG/ML 1 ML CARP\\VIAL ONE (08:24)
[2018-02-14] MEDS: CYCLOBENZAPRINE HCL 5 MG TAB PO SCH (08:30)
[2018-02-14] MEDS: METOPROLOL SUCC 50MG EXT REL TAB PO SCH (08:30)
--- NOTE | 2018-02-14 10:13 | HISTORY & PHYSICAL EXAMINATION ---
DATE OF ADMISSION: 02/14/2018 CHIEF COMPLAINT: Lower extremity difficulty. 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 HISTORY OF PRESENT ILLNESS: He is a delightful fellow. I have known him for 40 years. He is absolutely miserable. He is nonfunctional. He is only comfortable in bed at bed rest. PAST MEDICAL HISTORY: Positive for paroxysmal atrial fibrillation, arthritis, kidney stones, hypertension. PAST SURGICAL HISTORY: Hip replacement, ureteral stent, TURP, inguinal hernia, bladder carcinoma . FAMILY HISTORY: Carcinoma. SOCIAL HISTORY: Nonsmoker, nonalcohol, no drugs. , retired. OBJECTIVE: GENERAL: He is alert, oriented. VITAL SIGNS: His pressure is elevated at 201/85. HEENT: Essentially normal. HEART: Normal. LUNGS: Normal. EXTREMITIES: Warm. NEUROLOGIC: He has numbness on plantarflexion. He has pain with straight leg raising. He has some motor sensory deficits in the 3 and 4 nerve roots and absent reflex. MRI scan demonstrated multifactorial issues of the spine, severe stenosis 3-4, 4-5; a right herniation 3-4; osteophyte formation. IMPRESSION: Delightful gentleman with profound issues of the spine, multifactorial. PLAN: We will try pain management today and tomorrow. If that fails, which I am anticipating it will fail, we have actually being proactive put him on the surgical schedule for this coming , which I believe will be 02/16/2017.
--- NOTE | 2018-02-14 11:09 | DIAGNOSTIC IMAGING REPORT ---
LUMBAR SPINE 2 OR 3 VIEWS CLINICAL HISTORY: PREOP EVAL pain COMPARISON STUDY: 12/30/2016 FINDINGS: Extensive degenerative change throughout the entire lumbar region. Prominent lateral osteophytic complexes L1-L2. Degenerative changes of the posterior elements. No evidence for compression deformity. No evidence for subluxation. IMPRESSION: Considerable degenerative change. No acute process. The above report was generated using voice recognition software. It may contain grammatical, syntax or spelling errors. Electronically signed by: Tamir Walls M.D. 02/14/2018 11:08 AM Dictated Date/Time: 02/14/2018 11:06 AM
[2018-02-14] MEDS: OXYCODONE/ACETAMINOPHEN 10/325MG TAB PO PRN ×2 (11:19→19:58)
[2018-02-14] MEDS: KETOROLAC TROMETHAMINE 15 MG/ML VIAL IV. SCH ×3 (11:19→23:44)
[2018-02-14] MEDS: DEXAMETHASONE INJ 8 MG in SYRINGE 0 ML IV SCH ×3 (12:22→23:44)
[2018-02-14] MEDS ORDERED: POLYETHYLENE (MIRALAX) 17 GM PACK PO ONE (12:29)
[2018-02-14] MEDS ORDERED: POLYETHYLENE (MIRALAX) 17 GM PACK PO PRN (12:30)
--- NOTE | 2018-02-14 15:49 | Progress Note ---
Subjective Date of Service: Feb 14, 2018. Subjective Pt evaluation today including: conversation w/ patient, conversation w/ family , physical exam, chart review, conversation w/ etl consultant, review of inpatient medication list Pleasant, conversational, no pain with no move, Problem List Medical Problems: (1) Hypertension Status: Acute (2) Intractable back pain Status: Acute (3) Lumbar disc herniation Status: Acute (4) Shingles Status: Acute (5) Vomiting Status: Acute Review of Systems Constitutional: + weakness, + fatigue, No fever, No chills, No sweats, No weight loss, No problem reported Eyes: No worsening of vision, No eye pain, No redness, No discharge, No diplopia ENT: No hearing loss, No unusual epistaxis, No nasal symptoms, No sore throat, No tinnitus, No dental problems, No trouble swallowing Respiratory: No cough, No sputum, No wheezing, No shortness of breath, No dyspnea on exertion, No dyspnea at rest, No hemoptysis Cardiac: No chest pain, No orthopnea, No PND, No edema, No claudication, No palpitations Abdomen: No pain, No nausea, No vomiting, No diarrhea, No constipation Musculoskeletal: + joint pain, No muscle pain, No swelling, No calf pain Male : No dysuria, No urinary frequency, No incontinence, No nocturia more than once/night, No slowing stream, No hematuria Neurologic: No memory loss, No paralysis, No weakness, No numbness/tingling, No vertigo, No balance problems Psychiatric: No depression symptoms, No anhedonism, No anxiety, No insomnia, No substance abuse Heme: No abnormal bleeding/bruising, No clotting problems, No swollen lymph nodes, No night sweats Endo: No fatigue, No excessive thirst, No excessive urination Skin: No rash, No itch, No new/changing skin lesions, No color change, No bleeding Objective Vital Signs Date Time Temp Pulse Resp B/P (MAP) Pulse Ox O2 Delivery O2 Flow Rate FiO2 02/14/18 09:19 Room Air 02/14/18 08:32 36.8 72 17 163/78 (106) 93 Room Air 02/14/18 03:50 36.6 72 16 161/69 (99) 94 Room Air 02/14/18 02:35 Room Air 02/14/18 02:20 74 187/79 (115) 02/14/18 01:17 36.5 67 18 228/96 94 Room Air 02/14/18 00:49 36.6 62 22 206/99 93 02/13/18 22:44 62 22 191/80 93 Room Air 02/13/18 22:06 63 02/13/18 22:04 65 21 201/85 93 Room Air 02/13/18 21:05 94 Room Air 02/13/18 20:10 36.6 71 18 203/80 94 Room Air Physical Exam General Appearance: WD/WN, no apparent distress, + thin Eyes: normal inspection, PERRL, EOMI, sclerae normal ENT: normal ENT inspection, hearing grossly normal, pharynx normal Neck: supple, no adenopathy, thyroid normal, no JVD, no carotid bruits, trachea midline Respiratory/Chest: chest non-tender, normal breath sounds, no respiratory distress, no accessory muscle use, + decreased breath sounds Cardiovascular: regular rate, rhythm, no edema, no gallop, no JVD, no murmur Abdomen: normal bowel sounds, non tender, soft, no organomegaly, no pulsatile mass Extremities: normal range of motion, non-tender, normal inspection, no pedal edema, no calf tenderness, normal capillary refill, pelvis stable Neurologic/Psychiatric: tailings man II-XII nml as tested, no motor/sensory deficits, alert, normal mood/affect, oriented x 3 Skin: normal color, warm/dry, no rash Lymphatic: no adenopathy Laboratory Results Last 24 Hours Test 02/13/18 21:03 02/14/18 02:30 White Blood Count 4.89 K/uL Red Blood Count 4.52 M/uL Hemoglobin 14.4 g/dL Hematocrit 42.3 % Mean Corpuscular Volume 93.6 fL Mean Corpuscular Hemoglobin 31.9 pg Mean Corpuscular Hemoglobin Concent 34.0 g/dl Platelet Count 175 K/uL Mean Platelet Volume 9.5 fL Neutrophils (%) (Auto) 78.8 % Lymphocytes (%) (Auto) 8.4 % Monocytes (%) (Auto) 11.2 % Eosinophils (%) (Auto) 1.2 % Basophils (%) (Auto) 0.2 % Neutrophils # (Auto) 3.85 K/uL Lymphocytes # (Auto) 0.41 K/uL Monocytes # (Auto) 0.55 K/uL Eosinophils # (Auto) 0.06 K/uL Basophils # (Auto) 0.01 K/uL RDW Standard Deviation 48.3 fL RDW Coefficient of Variation 14.1 % Immature Granulocyte % (Auto) 0.2 % Immature Granulocyte # (Auto) 0.01 K/uL Erythrocyte Sedimentation Rate 8 mm/hr Prothrombin Time 11.4 SECONDS Prothromb Time International Ratio 1.1 Sodium Level 139 mmol/L Potassium Level 3.8 mmol/L Chloride Level 107 mmol/L Carbon Dioxide Level 26 mmol/L Anion Gap 5.0 mmol/L Blood Urea Nitrogen 18 mg/dl Creatinine 1.11 mg/dl Est Creatinine Clear Calc Drug Dose 46.6 ml/min Estimated GFR () 67.9 Estimated GFR (Non- 58.6 BUN/Creatinine Ratio 15.8 Random Glucose 126 mg/dl Calcium Level 8.4 mg/dl Phosphorus Level 2.7 mg/dl Magnesium Level 1.9 mg/dl C-Reactive Protein 0.97 mg/dl Urine Color YELLOW Urine Appearance CLEAR Urine pH 5.0 Urine Specific [place] 1.024 Urine Protein NEG Urine Glucose (UA) NEG Urine Ketones 1+ Urine Occult Blood NEG Urine Nitrite NEG Urine Bilirubin NEG Urine Urobilinogen NEG Urine Leukocyte Esterase NEG Assessment and Plan 87yo male admitted on February 13, 2018 because of lower back pain, Patient presenting with 6 days of progressive right hip/thigh pain, unable to ambulate secondary to pain and developing numbness. MRI with multiple levels of canal narrowing as well as extraforaminal disc extrusion at L3-L4 with compression of L3 nerve root, osteophyte complex at L5- S1 with displacement of L5 nerve root. Low back pain with disc extrusion with nerve root compression: Also improved appreciated, possible tomorrow procedure Dexamethasone started in ER and Dilaudid x 3 doses resulting in mild nausea Continue pain control with Tylenol PRN, Morphine 1mg IV q 2 hours PRN, Flexeril 5mg po daily Continue Colace 100mg po BID scheduled Mild accelerated HTN most likely secondary to pain as well as underlying h/o hypertension Continue hydralazine 10mg IV q 4 hours PRN SBP > 190 mmHg PAF, Continue Metoprolol daily at home dose, Hold Xarelto for now in case of surgical intervention History hypothyroidism - patient no longer takes a thyroid medication GI prophylaxis, DVT prophylaxis currently is on hold, Continued [facility] stay due to: multiple IV medications needed Discharge planning: home
[2018-02-14] MEDS ORDERED: MAGNESIUM CITRATE 296 ML/BTL PO STA (15:51)
[2018-02-14] MEDS: PANTOprazole INJ 40 MG in SYRINGE 0 ML IV SCH (17:03)
[2018-02-14] MEDS ORDERED: DOCUSATE SODIUM 100 MG CAP PO SCH (21:00)
[2018-02-14] MEDS: DOCUSATE SODIUM 100 MG CAP PO SCH (21:22)
[2018-02-15] MEDS: OXYCODONE/ACETAMINOPHEN 10/325MG TAB PO PRN ×5 (00:20→20:48)
[2018-02-15] MEDS: KETOROLAC TROMETHAMINE 15 MG/ML VIAL IV. SCH ×3 (05:23→18:11)
[2018-02-15] MEDS: DEXAMETHASONE INJ 8 MG in SYRINGE 0 ML IV SCH ×2 (05:23→12:07)
[2018-02-15 05:38] LABS: HEMOGLOBIN 13.6 g/dL (14.0-18.0); IG# 0.02 K/uL (0.00-0.02); LYMPH % 6.6 %; LYMPH ABS # 0.69 K/uL (1.2-3.4); MEAN CELL VOLUME 94.8 fL (80-100); MEAN CORPUSCULAR HEMOGLOBIN 32.2 pg (25-34); MEAN PLATELET VOLUME 9.6 fL (7.4-10.4); MONO % 1.9 %; NEUT % 91.3 %; PLATELET COUNT 191 K/uL (130-400); RED CELL DISTRIBUTION WIDTH CV 14.5 % (11.5-14.5); WHITE BLOOD COUNT 10.51 K/uL (4.8-10.8)
[2018-02-15 06:13] LABS: CALCIUM 8.3 mg/dl (8.5-10.1); CREATININE 1.53 mg/dl (0.60-1.40); POTASSIUM 4.5 mmol/L (3.5-5.1)
[2018-02-15 08:12] VITALS: BP 166/67; PULSE 69; TEMP 36.7; O2SAT 92
--- NOTE | 2018-02-15 08:42 | DIAGNOSTIC IMAGING REPORT ---
TWO VIEW CHEST CLINICAL HISTORY: Preoperative examination. FINDINGS: PA and lateral chest radiographs are compared to study dated 07/07/2017. The heart is enlarged and there is atherosclerotic calcification of the thoracic ureter. The pulmonary vasculature is noncongested. There is bibasilar scarring/atelectasis. No airspace consolidation or pleural effusion is identified. There is no pneumothorax. The skeletal structures are osteopenic. Degenerative change is seen throughout the thoracic spine in the shoulders. Fusion hardware is partially visualized in the lower cervical spine. IMPRESSION: Cardiomegaly with no active disease in the chest. Electronically signed by: Randall Gonsalves M.D. 02/15/2018 8:41 AM Dictated Date/Time: 02/15/2018 8:40 AM
--- NOTE | 2018-02-15 08:43 | Pain Management Consultation ---
Pain Management Consultation Date of Consultation Feb 15, 2018. Reason for Consultation Right hip/thigh pain Pain Location 1 - History Mr. Hodges is an active 87-year-old white male who presents for evaluation of intractable right-sided hip and proximal anterior lateral thigh pain. The patient initially began with right-sided lateral hip pain within the past 1 week and underwent evaluation with Dr. Rose who performed a right-sided ASIA in July. X-ray studies were completed which revealed no abnormalities with the hardware. His pain then progressed which required emergent evaluation yesterday. He describes the pain as aching, burning and sharp in characteristic. He indicated a exacerbation while working on a pipe in a [place] his [place] due to the high water. He denied a fall. He describes some paresthesias traveling to the foot. He has minimal axial low back pain. His pain is predominantly in the lateral hip and proximal/anterior thigh traveling to the mid thigh region. Symptoms are aggravated with ambulatory activities. He denies any bowel or bladder incontinence or saddle anesthesias. He did have bowel movement this morning. He is utilizing Percocet which he does find to be efficacious at diminishing his pain. Patient is planning to pursue surgical intervention suggested by Dr. Leal tentatively scheduled for tomorrow. 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 He denies any associated nausea. He has no further constitutional complaints at this time. Plan of care discussed with Dr. Cheatham. 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 (11) Kidney stones (12) CALCULUS OF URETER (13) Intractable pain Family History Cancer Omitted due to advanced age Social / Work History Smoking Status: Never smoker Smokeless Tobacco Use: No Alcohol Use: socially Drug Use: none Marital Status: Housing Status: lives with family Occupation: retired Allergies Coded Allergies: No Known Allergies (Verified , 07/22/17) Medications Current Inpatient Medications Medications (Trade) Dose Ordered Sig/Sushil Route Start Time Stop Time Status Last Admin Dose Admin Acetaminophen (Tylenol Tab) 650 mg Q4H PRN PO 02/14/18 00:00 03/16/18 00:00 Magnesium Hydroxide (Milk Of Magnesia Susp) 30 ml Q6H PRN PO 02/14/18 00:00 03/16/18 00:00 Metoprolol Succinate (Toprol Xl Tab) 50 mg DAILY PO 02/14/18 09:00 03/16/18 08:59 02/14/18 08:30 50 MG Hydralazine HCl (HydrALAZINE INJ) 10 mg Q4 PRN IV. 02/14/18 01:00 03/16/18 00:59 02/14/18 01:24 10 MG Cyclobenzaprine HCl (Flexeril Tab) 5 mg QAM PO 02/14/18 09:00 03/16/18 08:59 02/14/18 08:30 5 MG Miscellaneous (Iv Fluids Completed) 1 ea PRN PRN N/A 02/14/18 01:30 02/14/19 01:29 Ondansetron HCl (Zofran Inj) 4 mg Q6H PRN IV 02/14/18 02:30 03/16/18 02:29 02/14/18 17:27 4 MG Morphine Sulfate (MoRPHine SULFATE INJ) 4 mg Q2H PRN IV 02/14/18 08:00 02/28/18 00:00 02/14/18 17:27 4 MG Oxycodone/ Acetaminophen (Percocet 10-325MG Tab) 1 tab Q4H PRN PO 02/14/18 08:00 02/28/18 07:59 02/15/18 05:23 1 TAB Oxycodone/ Acetaminophen (Percocet 5-325mg Tab) 1 tab Q4H PRN PO 02/14/18 08:00 02/28/18 07:59 Dexamethasone Sodium Phosphate 8 mg/Syringe 2 ml @ 1 mls/min Q6H IV 02/14/18 12:00 03/16/18 11:59 02/15/18 05:23 1 MLS/MIN Ketorolac Tromethamine (Toradol Inj) 15 mg Q6H IV. 02/14/18 12:00 02/19/18 11:59 02/15/18 05:23 15 MG Polyethylene (Miralax Powder Packet) 17 gm DAILY PRN PO 02/14/18 12:30 03/16/18 12:29 Docusate Sodium (coLACE CAP) 100 mg BID PO 02/14/18 21:00 03/16/18 20:59 02/14/18 21:22 100 MG Pantoprazole Sodium 40 mg/ Syringe 10 ml @ 5 mls/min DAILY@11 IV 02/14/18 16:00 03/16/18 15:59 02/14/18 17:03 5 MLS/MIN Review of Systems Constitutional: Negative for fever, chills, sweats Eyes: Negative for eye pain, photophobia, drainage Ear, nose, mouth, throat: Negative for ear pain, nasal congestion, mouth lesions , change in voice Respiratory: Negative for wheezing, sputum production Cardiovascular: Negative for chest pain, palpitations, calf pain Gastrointestinal: Negative for abdominal pain, belching, bloating Genitourinary: Negative for dysuria, urinary incontinence, urinary urgency Musculoskeletal: Negative for deformities Integumentary: Negative for nail changes, skin yellowing, pruritus Neurological: Negative for abnormal speech, seizure type activity Physical Exam Height & Weight: Height 5 feet, 10.00 inches. Weight 81.800 (Kilograms) 180 (Pounds) Last Vital Signs Documentation Date Time Temp Pulse Resp B/P (MAP) Pulse Ox O2 Delivery O2 Flow Rate FiO2 02/15/18 08:12 36.7 69 18 166/67 (100) 92 Room Air Exam: General: Mr. Hodges was ambulating from the bathroom to the bed with a four- point walker upon entering the room in no acute distress. His ambulation was slowed. Speech and thought process was appropriate. His cognition was intact. Mood and affect was appropriate. Back/spine: Loss of lumbar lordosis. Nontender over the midline. No focal facet joint tenderness provocative testing. Nontender in the paravertebral, quadratus informed gluteal musculature. No focal SI joint tenderness provocative testing. Lower extremities: Sensation intact without deficits. Strength testing 5/5 and equal dorsiflexion, plantarflexion and hip flexion/extension maneuvering bilaterally. Straight leg raise reproduced pain on the right at greater than 45 with dorsiflexion only. SLR negative on the left. Hip is nontender with internal/external rotation bilaterally with slightly diminished range of motion on the right compared to the left status post ASIA. Dorsalis pedis and posterior tibial pulses are 2+ and equal bilaterally. There is no evidence of edema, erythema or skin breakdown of the lower extremities. Neurologic: Cranial nerves are grossly intact. Ambulation described above. Laboratory Laboratory Results (Last CBC): 02/15/18 05:14 Red Blood Count 4.22 L, Mean Corpuscular Volume 94.8, Mean Corpuscular Hemoglobin 32.2, Mean Corpuscular Hemoglobin Concent 34.0, Mean Platelet Volume 9.6, Neutrophils (%) (Auto) 91.3, Lymphocytes (%) (Auto) 6.6, Monocytes (%) ( Auto) 1.9, Eosinophils (%) (Auto) 0.0, Basophils (%) (Auto) 0.0, Neutrophils # ( Auto) 9.60 H, Lymphocytes # (Auto) 0.69 L, Monocytes # (Auto) 0.20, Eosinophils # (Auto) 0.00, Basophils # (Auto) 0.00 Imaging MRI: reports reviewed MRI Findings Patient: OUMOU HODGES Address1: [address] [place] [address] Rec: [id number] Address2: Acct ID: [id number] [facility] Zip: [place] [address] Date: 1930 Sex: M Room/Bed: Ref Phy: Basilio Reardon M.D. SC: AVERY Att Phy: Report #: [id number] Dayana Phy: Steve Torres M.D. Test: LSWOC Admit Phy: Wholesale Representative: AVANI Interpreting Phy: Dave Ramos MD Diagnosis: SEVERE PAIN UPPER RT THIGH Ordering Phy: Mitchell Up MD Service Date: 02/13/18 Admit Date: 02/13/18 MNE: [id number] CONF: DICTATED BY: Dave Ramos M.D.]] CC: Steve Torres M.D. Maciejczyk, John F., MD Shannon, Dennis, M.D. Endcc: [~ rep ct add3]] LUMBAR SPINE MRI HISTORY: severe right leg and sciatic pain. TECHNIQUE: Multiplanar multisequence MRI of the lumbar spine was performed without the use of contrast. COMPARISON: Lumbar spine 12/30/2016. FINDINGS: For the purpose of the report the L5-S1 disc space will be located on axial image 27 of 30. No fracture or subluxation. The conus terminates at the L1-L2 disc space. There are small Schmorl's nodes at L4 and L5. Minimal disc space narrowing at L3-L4 and L4-L5. Moderate to severe facet osteoarthritis throughout the lumbar spine most pronounced at the L4-L5 and L5-S1 levels. Paraspinal soft tissues are unremarkable. Multiple bilateral peripelvic renal cysts. No change in the 3.7 cm infrarenal abdominal aortic aneurysm. L1-L2: Small broad-based posterior disc bulge with bilateral facet hypertrophy resulting and mild central canal and mild bilateral neural foraminal narrowing. L2-L3: Broad-based posterior disc bulge with bilateral facet hypertrophy resulting in moderate to severe central canal and mild bilateral neural foraminal narrowing. L3-L4: Broad-based posterior disc bulge with a right extra foraminal disc extrusion best seen on axial image 15 of 30. This disc extrusion measures 1 cm. There is severe central canal narrowing and severe right-sided neural foraminal narrowing. The right extraforaminal disc extrusion likely compresses the exiting L3 nerve root. There is mild left-sided neural foraminal narrowing. L4-L5: Broad-based posterior disc bulge with a small focal central disc protrusion resulting in severe central canal narrowing. The central canal measures 1.5 mm in AP diameter. Mild to moderate bilateral neural foraminal narrowing. L5-S1: Broad-based posterior disc bulge with severe facet hypertrophy resulting in severe central canal and severe bilateral neural foraminal narrowing. The right lateral disc osteophyte complex displaces the exiting right L5 nerve root. IMPRESSION: 1. Multilevel lumbar spondylosis as described above resulting in severe central canal narrowing at the L3-L4, L4-L5 and L5-S1 levels. 2. There is also a right extra foraminal disc extrusion at L3-L4 which likely displaces/compresses the exiting right L3 nerve root. 3. There is an associated right lateral disc osteophyte complex at L5-S1 which displaces the exiting right L5 nerve root. 4. Additional degenerative changes as described above. 5. Redemonstration of the 3.7 cm infrarenal abdominal aortic aneurysm. Electronically signed by: Dave Ramos M.D. 02/13/2018 10:33 PM Dictated Date/Time: 02/13/2018 10:18 PM The status of this report is Signed. Draft = Not yet reviewed or approved by Radiologist. Signed = Reviewed and approved by Radiologist. [place] Drug Monitoring Program Search Results: patient reviewed within database, no issues identified Opioid Risk Assessment Risk assessment performed, no issues identified Assessment 1. Right lower extremity radiculopathy with L3-4 right extraforaminal disc extrusion 2. History of right sided ASIA July 2017 3. Constipation-likely opioid induced Recommendations 1. MRI findings reviewed with the patient as well as symptom attic presentation. We discussed etiologies and treatment options. We did discuss epidural steroid injection with a transforaminal approach on the right at L3-4 at length. The patient is interested in pursuing surgical intervention at this time and deferred VIRGIE. 2. Current medication regimen is effective at controlling his pain. No change in recommendations at this time. 3. Could consider addition of gabapentin but in light of the patient pursuing surgical intervention tentatively for tomorrow will defer at this time 4. Continue with bowel regimen which has been effective at producing bowel movement earlier today as the patient is likely experiencing some opioid induced constipation Thank you for allowing us to reduce pain care of Mr. Hodges. Please contact pain service for reevaluation as needed.
[2018-02-15] MEDS: DOCUSATE SODIUM 100 MG CAP PO SCH ×2 (08:59→20:48)
[2018-02-15] MEDS: CYCLOBENZAPRINE HCL 5 MG TAB PO SCH (08:59)
[2018-02-15] MEDS: METOPROLOL SUCC 50MG EXT REL TAB PO SCH (09:00)
[2018-02-15] MEDS: PANTOprazole INJ 40 MG in SYRINGE 0 ML IV SCH (11:21)
--- NOTE | 2018-02-15 14:43 | Anesthesiology Progress Note ---
Anesthesia Progress Note Date of Service Feb 15, 2018. Progress Notes Mr. Mcneal has NKDA and is slated for laminectomy tomorrow on 02/15/18. No problems with previous anesthesia. PMH sig for AAA (3.2cm), HTN, PAF (on xarelto as outpatient), OA, CKD, hypothryoidism, bladder CA. Never smoker. ECG shows sinus rhythm with 1 AV block RBBB. Labs WNL. Favorable airway with MP 2 ( slightly decreased extension 2/2 ACDF). Instructed to be NPO after midnight. Consent for GETA obtained after questions answered. Patient appears appropriate for surgery tomorrow.
--- NOTE | 2018-02-15 15:13 | Progress Note ---
Subjective Date of Service: Feb 15, 2018. Subjective Pt evaluation today including: conversation w/ patient, conversation w/ family , physical exam, chart review, lab review, review of studies, conversation w/ technical solutions consultant, review of inpatient medication list Voiding: no voiding problems Has 2-3 times bowel movement, after Mag citrate, was reporting fatigue Lower back pain is better controlled, Problem List Medical Problems: (1) Hypertension Status: Acute (2) Intractable back pain Status: Acute (3) Lumbar disc herniation Status: Acute (4) Shingles Status: Acute (5) Vomiting Status: Acute Review of Systems Constitutional: No fever, No chills, No sweats, No weight loss, No weakness, No fatigue, No problem reported Eyes: No worsening of vision, No eye pain, No redness, No discharge, No diplopia ENT: No hearing loss, No unusual epistaxis, No nasal symptoms, No sore throat, No tinnitus, No dental problems, No trouble swallowing Respiratory: No cough, No sputum, No wheezing, No shortness of breath, No dyspnea on exertion, No dyspnea at rest, No hemoptysis Cardiac: No chest pain, No orthopnea, No PND, No edema, No claudication, No palpitations Abdomen: No pain, No nausea, No vomiting, No diarrhea, No constipation Musculoskeletal: No joint pain, No muscle pain, No swelling, No calf pain Male : No dysuria, No urinary frequency, No incontinence, No nocturia more than once/night, No slowing stream, No hematuria Neurologic: No memory loss, No paralysis, No weakness, No numbness/tingling, No vertigo, No balance problems Psychiatric: No depression symptoms, No anhedonism, No anxiety, No insomnia, No substance abuse Heme: No abnormal bleeding/bruising, No clotting problems, No swollen lymph nodes, No night sweats Endo: No fatigue, No excessive thirst, No excessive urination Skin: No rash, No itch, No new/changing skin lesions, No color change, No bleeding Objective Vital Signs Date Time Temp Pulse Resp B/P (MAP) Pulse Ox O2 Delivery O2 Flow Rate FiO2 02/15/18 08:12 36.7 69 18 166/67 (100) 92 Room Air 02/15/18 07:50 Room Air 02/14/18 23:48 36.7 65 16 156/64 (94) 91 Room Air 02/14/18 20:00 Room Air 02/14/18 17:30 36.9 67 16 156/69 (98) 92 Room Air 02/14/18 16:00 93 Room Air Physical Exam General Appearance: WD/WN, no apparent distress Eyes: normal inspection, PERRL ENT: normal ENT inspection, hearing grossly normal Neck: supple, no adenopathy, thyroid normal Respiratory/Chest: chest non-tender, lungs clear, + decreased breath sounds Cardiovascular: regular rate, rhythm, no edema, no gallop Abdomen: normal bowel sounds, non tender, soft, no organomegaly Extremities: normal range of motion, non-tender, normal inspection, no pedal edema 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, no motor/sensory deficits, alert, normal mood/affect, oriented x 3 Laboratory Results Last 24 Hours Test 02/15/18 05:14 White Blood Count 10.51 K/uL Red Blood Count 4.22 M/uL Hemoglobin 13.6 g/dL Hematocrit 40.0 % Mean Corpuscular Volume 94.8 fL Mean Corpuscular Hemoglobin 32.2 pg Mean Corpuscular Hemoglobin Concent 34.0 g/dl Platelet Count 191 K/uL Mean Platelet Volume 9.6 fL Neutrophils (%) (Auto) 91.3 % Lymphocytes (%) (Auto) 6.6 % Monocytes (%) (Auto) 1.9 % Eosinophils (%) (Auto) 0.0 % Basophils (%) (Auto) 0.0 % Neutrophils # (Auto) 9.60 K/uL Lymphocytes # (Auto) 0.69 K/uL Monocytes # (Auto) 0.20 K/uL Eosinophils # (Auto) 0.00 K/uL Basophils # (Auto) 0.00 K/uL RDW Standard Deviation 50.0 fL RDW Coefficient of Variation 14.5 % Immature Granulocyte % (Auto) 0.2 % Immature Granulocyte # (Auto) 0.02 K/uL Sodium Level 137 mmol/L Potassium Level 4.5 mmol/L Chloride Level 104 mmol/L Carbon Dioxide Level 27 mmol/L Anion Gap 6.0 mmol/L Blood Urea Nitrogen 35 mg/dl Creatinine 1.53 mg/dl Est Creatinine Clear Calc Drug Dose 33.8 ml/min Estimated GFR () 46.0 Estimated GFR (Non- 39.7 BUN/Creatinine Ratio 22.9 Random Glucose 145 mg/dl Calcium Level 8.3 mg/dl Magnesium Level 2.7 mg/dl Assessment and Plan 87yo male admitted on February 13, 2018 because of lower back pain, Patient presenting with 6 days of progressive right hip/thigh pain, unable to ambulate secondary to pain and developing numbness. MRI with multiple levels of canal narrowing as well as extraforaminal disc extrusion at L3-L4 with compression of L3 nerve root, osteophyte complex at L5- S1 with displacement of L5 nerve root. Low back pain with disc extrusion with nerve root compression: Orthopedic input appreciated, possible tomorrow procedure Dexamethasone started in ER will continue tapering Continue pain control with Tylenol PRN, Morphine 1mg IV q 2 hours PRN, Flexeril 5mg po daily Constipation, was treated with message for yesterday, has bowel movement, continue Colace 100mg po BID scheduled Mild accelerated HTN most likely secondary to pain as well as underlying h/o hypertension Continue hydralazine 10mg IV q 4 hours PRN SBP > 190 mmHg PAF, Continue Metoprolol daily at home dose, continue to hold Xarelto for now History hypothyroidism - patient no longer takes a thyroid medication GI prophylaxis, DVT prophylaxis currently is on hold, Discussed with patient's and patient's family in the room, answered all questions Continued [facility] stay due to: multiple IV medications needed Discharge planning: home
[2018-02-15 15:46] VITALS: BP 167/71; PULSE 69; TEMP 36.6; O2SAT 92
[2018-02-15] MEDS: DEXAMETHASONE INJ 4 MG in SYRINGE 0 ML IV SCH (22:00)
[2018-02-15 23:20] VITALS: BP 164/77; PULSE 64; TEMP 36.8; O2SAT 92
[2018-02-16] VITALS (7 sets, daily range): BP systolic 133–166; BP diastolic 50–73; PULSE 65–81; TEMP 36.3–36.8; O2SAT 91–96
[2018-02-16] MEDS: KETOROLAC TROMETHAMINE 15 MG/ML VIAL IV. SCH ×2 (00:15→05:36)
[2018-02-16] MEDS: DEXAMETHASONE INJ 4 MG in SYRINGE 0 ML IV SCH (05:36)
[2018-02-16 06:57] LABS: CALCIUM 7.9 mg/dl (8.5-10.1); CREATININE 1.83 mg/dl (0.60-1.40); POTASSIUM 4.8 mmol/L (3.5-5.1)
[2018-02-16] MEDS ORDERED: SODIUM CHLORIDE 0.9% 1000ML 1,000 ML IV SCH (08:00)
[2018-02-16] MEDS: DOCUSATE SODIUM 100 MG CAP PO SCH ×2 (09:19→21:00)
[2018-02-16] MEDS: METOPROLOL SUCC 50MG EXT REL TAB PO SCH (09:19)
[2018-02-16] MEDS ORDERED: NURSING VERBAL MED ORDER ONE (11:15)
[2018-02-16] MEDS ORDERED: BISACODYL 10 MG SUPP PR PRN (11:30)
[2018-02-16] MEDS: PANTOprazole INJ 40 MG in SYRINGE 0 ML IV SCH (12:26)
--- NOTE | 2018-02-16 12:58 | Progress Note ---
Subjective Date of Service: Feb 16, 2018. Subjective Pt evaluation today including: conversation w/ patient, conversation w/ family , physical exam, chart review, lab review, review of studies, review of inpatient medication list She will feel uncomfortable because of constipation, bowel movement yesterday, Patient is planning for procedure this afternoon by orthopedic surgeon Problem List Medical Problems: (1) Hypertension Status: Acute (2) Intractable back pain Status: Acute (3) Lumbar disc herniation Status: Acute (4) Shingles Status: Acute (5) Vomiting Status: Acute Review of Systems Constitutional: + weakness, + fatigue, No fever, No chills, No sweats, No weight loss, No problem reported Eyes: No worsening of vision, No eye pain, No redness, No discharge, No diplopia ENT: No hearing loss, No unusual epistaxis, No nasal symptoms, No sore throat, No tinnitus, No dental problems, No trouble swallowing Respiratory: No cough, No sputum, No wheezing, No shortness of breath, No dyspnea on exertion, No dyspnea at rest, No hemoptysis Cardiac: No chest pain, No orthopnea, No PND, No edema, No claudication, No palpitations Abdomen: + constipation, No pain, No nausea, No vomiting, No diarrhea Musculoskeletal: + joint pain, No muscle pain, No swelling, No calf pain Male : No dysuria, No urinary frequency, No incontinence, No nocturia more than once/night, No slowing stream, No hematuria Neurologic: No memory loss, No paralysis, No weakness, No numbness/tingling, No vertigo, No balance problems Psychiatric: No depression symptoms, No anhedonism, No anxiety, No insomnia, No substance abuse Heme: No abnormal bleeding/bruising, No clotting problems, No swollen lymph nodes, No night sweats Endo: No fatigue, No excessive thirst, No excessive urination Skin: No rash, No itch, No new/changing skin lesions, No color change, No bleeding Objective Vital Signs Date Time Temp Pulse Resp B/P (MAP) Pulse Ox O2 Delivery O2 Flow Rate FiO2 02/16/18 07:25 Room Air 02/16/18 07:11 36.8 67 16 157/65 (95) 91 Room Air 02/16/18 00:10 Room Air 02/15/18 23:20 36.8 64 16 164/77 (106) 92 Room Air 02/15/18 15:46 36.6 69 16 167/71 (103) 92 Room Air 02/15/18 15:45 Room Air Physical Exam General Appearance: WD/WN, no apparent distress Eyes: normal inspection, PERRL, EOMI, sclerae normal ENT: normal ENT inspection, hearing grossly normal, pharynx normal Neck: supple, no adenopathy, thyroid normal, no JVD, no carotid bruits, trachea midline Respiratory/Chest: normal breath sounds, no respiratory distress, no accessory muscle use, + decreased breath sounds Cardiovascular: regular rate, rhythm, no edema, no gallop, no JVD, no murmur Abdomen: normal bowel sounds, non tender, soft, no organomegaly, no pulsatile mass Extremities: non-tender, normal inspection, no pedal edema, no calf tenderness , normal capillary refill, pelvis stable 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3 mg/dl Assessment and Plan 87yo male admitted on February 13, 2018 because of lower back pain, Patient presenting with 6 days of progressive right hip/thigh pain, unable to ambulate secondary to pain and developing numbness. MRI with multiple levels of canal narrowing as well as extraforaminal disc extrusion at L3-L4 with compression of L3 nerve root, osteophyte complex at L5- S1 with displacement of L5 nerve root. Low back pain with disc extrusion with nerve root compression: Orthopedic input appreciated, today procedure Dexamethasone started in ER will continue tapering Continue pain control with Tylenol PRN, Morphine 1mg IV q 2 hours PRN, Flexeril 5mg po daily Constipation, was treated with magnesium citrate the day before, continue suppository or Fleet enema Mild accelerated HTN most likely secondary to pain as well as underlying h/o hypertension Continue hydralazine 10mg IV q 4 hours PRN SBP > 190 mmHg Acute on chronic kidney injury with continued elevated creatinine, check renal offensive medication, stop Toradol continue morphine for the pain, gentle IV fluid follow-up renal function tomorrow PAF, Continue Metoprolol daily at home dose, continue to hold Xarelto History hypothyroidism - patient no longer takes a thyroid medication GI prophylaxis, DVT prophylaxis currently is on hold, Discussed with patient's and patient's family in the room, answered all questions Continued [facility] stay due to: multiple IV medications needed Discharge planning: home
[2018-02-16] MEDS ORDERED: FENTANYL CITRATE INJ 50 MCG/1 ML 2 ML VIAL ONE ×3 (14:52→17:28)
[2018-02-16] MEDS ORDERED: CEFAZOLIN SOD 2000MG/15 ML IV PUSH ONE (15:37)
[2018-02-16] MEDS ORDERED: ROCURONIUM BROMIDE 10 MG/ML 5 ML VIAL ONE (15:51)
[2018-02-16] MEDS ORDERED: LIDOCAINE HCL 2% 2 ML VIAL (20MG/ML) ONE (15:51)
[2018-02-16] MEDS ORDERED: PROPOFOL IV EMULSION 10 MG/ML 20 ML VIAL ONE (15:51)
[2018-02-16] MEDS ORDERED: BUPIVACAINE/EPINEPHRINE 0.5% MPF 1:200,000 30 ML VIAL ONE (15:57)
[2018-02-16] MEDS ORDERED: GELATIN SPONGE SZ 100 ONE (15:57)
[2018-02-16] MEDS ORDERED: THROMBIN FOR SOLN 20000 UNIT KIT ONE (15:58)
[2018-02-16] MEDS ORDERED: BACITRACIN 50000 UNIT VIAL ONE (15:58)
[2018-02-16] MEDS ORDERED: VANCOMYCIN HCL 1000MG/20ML VIAL ONE (16:34)
[2018-02-16] MEDS ORDERED: EpHEDrine SULFATE 50MG/5ML SYR ONE (16:56)
[2018-02-16] MEDS ORDERED: GLYCOPYRROLATE INJ 0.2 MG/ML VIAL ONE (17:43)
[2018-02-16] MEDS ORDERED: ESMOLOL HCL 10 MG/ML 10 ML VIAL ONE (17:43)
[2018-02-16] MEDS ORDERED: NEOSTIGMINE METHYLSULFATE 1 MG/ML 10ML VIAL ONE (17:43)
--- NOTE | 2018-02-16 18:22 | DIAGNOSTIC IMAGING REPORT ---
INTRAOPERATIVE RADIOGRAPHS CLINICAL HISTORY: L3-L5 spinal fusion. Fluoroscopy time: 14 seconds. FINDINGS: 3 spot fluoroscopic views of the lumbar spine are presented. Surgical probes project posteriorly from L3-L5 on all 3 images. IMPRESSION: Intraoperative images from L3 -L5 spinal fusion. See operative report for detailed findings. Electronically signed by: Randall Gonsalves M.D. 02/16/2018 6:21 PM Dictated Date/Time: 02/16/2018 6:20 PM
--- NOTE | 2018-02-16 18:32 | [facility] Post Operative Brief Note ---
Immediate Operative Summary Operative Date Feb 16, 2018. Pre-Operative Diagnosis Stenosis L3-L5, herniation L3-L4 Post-Operative Diagnosis Stenosis L3-L5, herniation L3-L4 Procedure(s) Performed L3-L5 Laminectomy, L3-L4 Discectomy Surgeon Dr. Leal Project Coordinator Rn Surgeon(s) Lexx Hall PA-C Estimated Blood Loss 75ml Findings Consistent with Post-Op Diagnosis Specimens None Anesthesia Type General Complication(s) none Disposition Disposition: Recovery Room / PACU Overlapping Procedure I was immediately available: during the entire case
[2018-02-16] MEDS ORDERED: LABETALOL HCL IV 5 MG/ML 20ML ONE (18:39)
[2018-02-16] MEDS ORDERED: OXYCODONE/ACETAMINOPHEN 5-325 TAB PO PRN ×2 (18:45)
[2018-02-16] MEDS ORDERED: OXYCODONE HCL IR 5 MG TAB (IMMEDIATE RELEASE) PO PRN ×2 (18:45)
[2018-02-16] MEDS ORDERED: EpHEDrine SULFATE INJ 50 MG/ML AMP IV PRN ×2 (18:45→19:15)
[2018-02-16] MEDS ORDERED: ONDANSETRON INJ 2 MG/ML 2 ML VIAL IV PRN ×3 (18:45→19:15)
[2018-02-16] MEDS ORDERED: LORAZEPAM INJ 1 MG in SYRINGE 0 ML IV PRN (18:45)
[2018-02-16] MEDS ORDERED: HYDROmorphone INJ 2 MG/ML SYR/VIAL IV PRN (18:45)
[2018-02-16] MEDS ORDERED: ACETAMINOPHEN 325 MG TAB PO PRN (18:45)
[2018-02-16] MEDS ORDERED: LORAZEPAM 1 MG TAB PO PRN (18:45)
[2018-02-16] MEDS ORDERED: PROMETHAZINE HCL INJ 12.5 MG in SODIUM CHLORIDE 0.9% 50ML 50 ML IV PRN ×4 (18:45)
[2018-02-16] MEDS ORDERED: ATROPINE SULFATE 0.1 MG/ML 5ML SYR IV PRN ×2 (18:45→19:15)
[2018-02-16] MEDS ORDERED: NALOXONE HCL 0.4 MG/1 ML VIAL/CARP IV PRN (18:45)
[2018-02-16] MEDS ORDERED: HYDROmorphone INJ 1 MG/ML SYR IV PRN ×2 (18:45)
[2018-02-16] MEDS ORDERED: FLUMAZENIL 0.1 MG/1 ML 10 ML VIAL IV PRN (18:45)
[2018-02-16] MEDS ORDERED: METOCLOPRAMIDE HCL INJ 5 MG/ML 2 ML VIAL IV PRN (18:45)
[2018-02-16] MEDS ORDERED: MAGNESIUM HYDROXIDE SUSP 30 ML UDC PO PRN (18:45)
[2018-02-16 18:56] LABS: HEMATOCRIT 41.4 % (42-52); HEMOGLOBIN 13.9 g/dL (14.0-18.0)
[2018-02-16] MEDS: LABETALOL HCL IV 5 MG/ML 20ML IV PRN ×3 (18:56→19:14)
--- NOTE | 2018-02-16 19:09 | Anesthesiology Progress Note ---
Anesthesia Post Op Note Date & Time Feb 16, 2018 at 19:09 Vital Signs Pain Intensity: 0 Vital Signs Past 12 Hours Date Time Temp Pulse Resp B/P (MAP) Pulse Ox O2 Delivery O2 Flow Rate FiO2 02/16/18 18:55 97 24 183/76 98 Oxymask 10 187/66 02/16/18 18:45 105 22 176/85 98 Oxymask 10 183/72 02/16/18 18:38 36.4 99 16 166/73 99 Oxymask 10 179/68 02/16/18 15:48 36.4 62 16 188/96 (126) 94 Room Air 02/16/18 15:20 Room Air 02/16/18 07:25 Room Air 02/16/18 07:11 36.8 67 16 157/65 (95) 91 Room Air Notes Mental Status: alert / awake / arousable, participated in evaluation Pt Amnestic to Procedure: Yes Nausea / Vomiting: adequately controlled Pain: adequately controlled Airway Patency, RR, SpO2: stable & adequate BP & HR: stable & adequate Hydration State: stable & adequate Anesthetic Complications: no major complications apparent
[2018-02-16] MEDS ORDERED: FENTANYL CITRATE INJ 50 MCG/1 ML 2 ML VIAL IV PRN (19:15)
--- NOTE | 2018-02-16 19:57 | OPERATIVE REPORT ---
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 SURGEON: Dr. Leal. MANAGER BUSINESS PROCESS: Lexx Hall PA-C. PROCEDURE: Lumbar spine laminectomy, foraminotomy, partial facetectomy, lamina L3, L4 and L5 foraminotomies. A radical discectomy at L3-L4 far lateral disc. BLOOD LOSS: 75 mL. COMPLICATIONS: No apparent complications. DESCRIPTION OF PROCEDURE: The patient was taken to the operating room and general intubated anesthetic provided to the patient, placed prone, prepped and draped sterile. A timeout obtained. I made a skin incision, fascial incision, took the soft tissue down off the lamina from 3 down to 5 dissecting the soft tissue. We put in a deep self-retaining retractor. I did a laminectomy on the right taking the lamina out on the right hand side, the facet joint as well the nerve root approximately 1 cm lateral to the facet joint. I assessed the patient for any instability patterns. I felt he was rock solid stable with no instability. I then kept the nerve root up in the superior direction, did a formal discectomy starting laterally moving medial. I think I really accomplished getting the pressure off the associated nerve root in a piecemeal fashion. I completed the foraminotomy. We went down, took the remainder of 4 and lamina 5 foraminotomies as well taken off the lamina. He had a significant amount of central canal stenosis. I did not want to leave that for a later time. We irrigated, placed some Gelfoam over the dural structures, vancomycin powder, closed over Hemovac drain with 1 Vicryl, 2-0 subcuticular layer, and 3-0 nylon skin, sterile dressing applied. The patient returned to PACU stable. No apparent complications as stated. Sponge and needle count correct. No implants used. I attest to the content of the Intraoperative Record and any orders documented therein. Any exception s are noted below.
[2018-02-16] MEDS: ACETAMINOPHEN IV 1,000 MG in EMPTY BAG 0 ML IV SCH (21:42)
[2018-02-16] MEDS: DEXAMETHASONE INJ 10 MG in SYRINGE 0 ML IV SCH (21:42)
[2018-02-16] MEDS: LACTATED RINGER'S 1000ML 1,000 ML IV SCH (21:46)
[2018-02-16] MEDS: CEFAZOLIN IV 2,000 MG in SYRINGE 0 ML IV SCH (22:38)
[2018-02-17 03:46] VITALS: BP 145/64; PULSE 71; TEMP 36.3; O2SAT 95
[2018-02-17] MEDS: ACETAMINOPHEN IV 1,000 MG in EMPTY BAG 0 ML IV SCH ×3 (04:47→20:50)
[2018-02-17] MEDS: DEXAMETHASONE INJ 10 MG in SYRINGE 0 ML IV SCH ×3 (04:47→20:50)
[2018-02-17] MEDS ORDERED: BISACODYL 10 MG SUPP PR PRN (06:00)
[2018-02-17] MEDS ORDERED: BISACODYL 5 MG TABEC PO PRN (06:00)
[2018-02-17] MEDS: CEFAZOLIN IV 2,000 MG in SYRINGE 0 ML IV SCH ×2 (06:15→18:22)
[2018-02-17 06:35] LABS: HEMATOCRIT 39.6 % (42-52); HEMOGLOBIN 12.8 g/dL (14.0-18.0); IG# 0.03 K/uL (0.00-0.02); LYMPH % 4.6 %; LYMPH ABS # 0.32 K/uL (1.2-3.4); MEAN CELL VOLUME 95.7 fL (80-100); MEAN CORPUSCULAR HEMOGLOBIN 30.9 pg (25-34); MEAN CORPUSCULAR HGB CONC 32.3 g/dl (32-36); MEAN PLATELET VOLUME 9.6 fL (7.4-10.4); MONO % 3.2 %; MONO ABS # 0.22 K/uL (0.11-0.59); NEUT % 91.8 %; PLATELET COUNT 170 K/uL (130-400); RED CELL DISTRIBUTION WIDTH CV 14.7 % (11.5-14.5); RED CELL DISTRIBUTION WIDTH SD 51.8 fL (36.4-46.3); WHITE BLOOD COUNT 6.97 K/uL (4.8-10.8)
[2018-02-17 07:02] LABS: CALCIUM 7.1 mg/dl (8.5-10.1); CREATININE 1.39 mg/dl (0.60-1.40); PHOSPHORUS 3.3 mg/dl (2.5-4.9); POTASSIUM 4.9 mmol/L (3.5-5.1)
[2018-02-17 07:35] VITALS: BP 163/69; PULSE 73; TEMP 36.4; O2SAT 95
[2018-02-17] MEDS: RIVAROXABAN TAB 15 MG TAB PO SCH (09:00)
[2018-02-17] MEDS: POLYETHYLENE (MIRALAX) 17 GM PACK PO SCH (09:00)
[2018-02-17] MEDS ORDERED: PANTOprazole SOD 40 MG TAB PO SCH (09:00)
[2018-02-17] MEDS: DOCUSATE SODIUM 100 MG CAP PO SCH ×2 (10:15→20:49)
[2018-02-17 10:45] VITALS: BP 161/69; PULSE 70; TEMP 36.8; O2SAT 95
[2018-02-17] MEDS: LACTATED RINGER'S 1000ML 1,000 ML IV SCH (11:14)
[2018-02-17] MEDS: METOPROLOL SUCC 50MG EXT REL TAB PO SCH (12:24)
--- NOTE | 2018-02-17 13:20 | Anesthesiology Progress Note ---
Anesthesia Post Op Note Date & Time Feb 17, 2018 at 13:20 Vital Signs Pain Intensity: 0.0 Vital Signs Past 12 Hours Date Time Temp Pulse Resp B/P (MAP) Pulse Ox O2 Delivery O2 Flow Rate FiO2 02/17/18 10:45 36.8 70 18 161/69 (99) 95 Room Air 02/17/18 07:35 36.4 73 18 163/69 (100) 95 Room Air 02/17/18 03:46 36.3 71 16 145/64 (91) 95 Room Air Notes Mental Status: alert / awake / arousable, participated in evaluation Pt Amnestic to Procedure: Yes Nausea / Vomiting: adequately controlled Pain: adequately controlled Airway Patency, RR, SpO2: stable & adequate BP & HR: stable & adequate Hydration State: stable & adequate Anesthetic Complications: no major complications apparent
--- NOTE | 2018-02-17 15:41 | Progress Note ---
Subjective Date of Service: Feb 17, 2018. Subjective Pt evaluation today including: conversation w/ patient, conversation w/ family , physical exam, chart review, lab review, review of studies, conversation w/ bi consultant, review of inpatient medication list Patient failed hip on his back when standing up in the toilet this morning pain about lower back pain,. Per patient and daughter, he was transferred to the restroom by nurse, after he finishing up and he did not wait Rn returning, and did not call for help to assist him to be up, he stand up by himself and felt hip gave out and he fell on his hip, denied palpitation, dizziness, blurred visions before and during the fall, did not hit any other place except lower back, denied loss of consciousness Problem List Medical Problems: (1) Hypertension Status: Acute (2) Intractable back pain Status: Acute (3) Lumbar disc herniation Status: Acute (4) Shingles Status: Acute (5) Vomiting Status: Acute Review of Systems Constitutional: No fever, No chills, No sweats, No weight loss, No weakness, No fatigue, No problem reported Eyes: No worsening of vision, No eye pain, No redness, No discharge, No diplopia ENT: No hearing loss, No unusual epistaxis, No nasal symptoms, No sore throat, No tinnitus, No dental problems, No trouble swallowing Respiratory: No cough, No sputum, No wheezing, No shortness of breath, No dyspnea on exertion, No dyspnea at rest, No hemoptysis Cardiac: No chest pain, No orthopnea, No PND, No edema, No claudication, No palpitations Abdomen: No pain, No nausea, No vomiting, No diarrhea, No constipation Musculoskeletal: + joint pain, No muscle pain, No swelling, No calf pain Male : No dysuria, No urinary frequency, No incontinence, No nocturia more than once/night, No slowing stream, No hematuria Neurologic: No memory loss, No paralysis, No weakness, No numbness/tingling, No vertigo, No balance problems Psychiatric: No depression symptoms, No anhedonism, No anxiety, No insomnia, No substance abuse Heme: No abnormal bleeding/bruising, No clotting problems, No swollen lymph nodes, No night sweats Endo: No fatigue, No excessive thirst, No excessive urination Skin: No rash, No itch, No new/changing skin lesions, No color change, No bleeding Objective Vital Signs Date Time Temp Pulse Resp B/P (MAP) Pulse Ox O2 Delivery O2 Flow Rate FiO2 02/17/18 10:45 36.8 70 18 161/69 (99) 95 Room Air 02/17/18 07:35 36.4 73 18 163/69 (100) 95 Room Air 02/17/18 03:46 36.3 71 16 145/64 (91) 95 Room Air 02/16/18 23:20 Nasal Cannula 2.0 02/16/18 23:09 36.5 65 15 133/50 (77) 96 Nasal Cannula 2.0 02/16/18 22:00 36.4 69 15 145/56 (85) 94 Nasal Cannula 2.0 02/16/18 21:00 36.5 78 17 149/57 (87) 95 Nasal Cannula 2.0 02/16/18 20:34 36.3 74 20 166/73 (104) 96 Nasal Cannula 2.0 02/16/18 20:30 96 Nasal Cannula 2.0 02/16/18 20:00 36.3 81 18 156/72 (100) 95 Nasal Cannula 2.0 02/16/18 20:00 95 Nasal Cannula 2.0 02/16/18 19:45 76 22 157/72 96 Nasal Cannula 4 02/16/18 19:35 74 22 152/81 96 Nasal Cannula 4 Arterial Line 02/16/18 19:25 36.6 76 13 157/72 95 Nasal Cannula 4 Arterial Line 02/16/18 19:15 79 20 171/73 95 Nasal Cannula 4 186/67 02/16/18 19:05 79 20 175/71 96 Oxymask 10 184/66 02/16/18 18:55 97 24 183/76 98 Oxymask 10 187/66 02/16/18 18:45 105 22 176/85 98 Oxymask 10 183/72 02/16/18 18:38 36.4 99 16 166/73 99 Oxymask 10 179/68 02/16/18 15:48 36.4 62 16 188/96 (126) 94 Room Air Physical Exam General Appearance: WD/WN, no apparent distress, + pertinent finding (Head was atraumatic,) Eyes: normal inspection, PERRL, EOMI, sclerae normal ENT: normal ENT inspection, hearing grossly normal, pharynx normal Neck: supple, no adenopathy, thyroid normal, no JVD, no carotid bruits, trachea midline Respiratory/Chest: chest non-tender, normal breath sounds, no respiratory distress, no accessory muscle use, + decreased breath sounds Cardiovascular: regular rate, rhythm, no edema, no gallop, no JVD, no murmur Abdomen: normal bowel sounds, non tender, soft, no organomegaly, no pulsatile mass Extremities: normal range of motion, non-tender, normal inspection, no pedal edema, no calf tenderness, normal capillary refill, pelvis stable 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, no motor/sensory deficits, alert, normal mood/affect, oriented x 3 Skin: normal color, warm/dry, no rash Lymphatic: no adenopathy Laboratory Results Last 24 Hours Test 02/16/18 18:48 02/17/18 06:11 Hemoglobin 13.9 g/dL 12.8 g/dL Hematocrit 41.4 % 39.6 % White Blood Count 6.97 K/uL Red Blood Count 4.14 M/uL Mean Corpuscular Volume 95.7 fL Mean Corpuscular Hemoglobin 30.9 pg Mean Corpuscular Hemoglobin Concent 32.3 g/dl Platelet Count 170 K/uL Mean Platelet Volume 9.6 fL Neutrophils (%) (Auto) 91.8 % Lymphocytes (%) (Auto) 4.6 % Monocytes (%) (Auto) 3.2 % Eosinophils (%) (Auto) 0.0 % Basophils (%) (Auto) 0.0 % Neutrophils # (Auto) 6.40 K/uL Lymphocytes # (Auto) 0.32 K/uL Monocytes # (Auto) 0.22 K/uL Eosinophils # (Auto) 0.00 K/uL Basophils # (Auto) 0.00 K/uL RDW Standard Deviation 51.8 fL RDW Coefficient of Variation 14.7 % Immature Granulocyte % (Auto) 0.4 % Immature Granulocyte # (Auto) 0.03 K/uL Sodium Level 138 mmol/L Potassium Level 4.9 mmol/L Chloride Level 107 mmol/L Carbon Dioxide Level 24 mmol/L Anion Gap 7.0 mmol/L Blood Urea Nitrogen 43 mg/dl Creatinine 1.39 mg/dl Est Creatinine Clear Calc Drug Dose 37.2 ml/min Estimated GFR () 51.7 Estimated GFR (Non- 44.6 BUN/Creatinine Ratio 31.1 Random Glucose 128 mg/dl Calcium Level 7.1 mg/dl Phosphorus Level 3.3 mg/dl Magnesium Level 2.7 mg/dl Assessment and Plan 87yo male admitted on February 13, 2018 because of lower back pain, Patient presenting with 6 days of progressive right hip/thigh pain, unable to ambulate secondary to pain and developing numbness. MRI with multiple levels of canal narrowing as well as extraforaminal disc extrusion at L3-L4 with compression of L3 nerve root, osteophyte complex at L5- S1 with displacement of L5 nerve root. Low back pain with disc extrusion with nerve root compression: Orthopedic input appreciated, Stenosis L3-L5, herniation L3-L4, s/p L3-L5 Laminectomy, L3-L4 Discectomy procedure was done on February 16, 2018, postop day 1, DVT prophylaxis is on Xelreto, will continue PT OT after cleared by surgeon Continue pain control with Tylenol PRN, Morphine 1mg IV q 2 hours PRN, Flexeril 5mg po daily Dexamethasone started in ER will continue tapering Fall, has good education with patient and patient's daughter in bedside, never stand up or up to walk by himself without asking bilingual teacher assistant Constipation, was treated with magnesium citrate the day before, continue suppository or Fleet enema Has ordered to check orthostatic blood pressure every shift Mild accelerated HTN, currently blood pressure in acceptable level, sbp 145-169 most likely secondary to pain as well as underlying h/o hypertension, home medicines Toprol has restarted, Continue hydralazine 10mg IV q 4 hours PRN SBP > 190 mmHg, Acute on chronic kidney injury with continued elevated creatinine, check renal offensive medication, significantly improve and approach to baseline stop Toradol, continue morphine for the pain, Discontinue IV fluid continue follow-up renal function PAF, Continue Metoprolol daily at home dose, continue Xarelto History hypothyroidism - patient no longer takes a thyroid medication GI prophylaxis, DVT prophylaxis currently is on hold, Discussed with patient's and patient's family in the room, answered all questions PT OT and discharge plan Continued [facility] stay due to: home environment unsafe for pt Discharge planning: home
[2018-02-17 15:44] VITALS: BP 154/65; PULSE 62; TEMP 36.7; O2SAT 92
--- NOTE | 2018-02-17 16:20 | Discharge Instructions ---
Discharge Instructions Date of Service Feb 17, 2018. 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 don't mess up! . Instructions / Follow-Up Instructions / Follow-Up MEDICATIONS: Please take your prescriptions as instructed at your pre-op appointment. SPECIAL CARE: The following information is intended to answer some of the common questions and concerns regarding your surgery. Each patient is an individual and receives individual counselling throughout the course of treatment, from diagnosis to surgery all the way through recovery. What follows is not an exhaustive list, but should be a useful guide to some of the common questions and concerns patients have regarding their surgeries. These are not provided to keep you from calling us; rather, they give you something accurate and concrete to reference as you recover from your procedure. If you need us, we are available to you. As always, if you are not sure about something, call us at [phone]. MEDICAL EMERGENCIES: For these conditions, call 911 or go to your local hospital-based Emergency Department - not [facility] or equivalent. * Paralysis * Severe chest pain or difficulty breathing * Swelling or redness of either leg Spine procedures can be rather complex and though complications are rare, they do occur. In such cases, effective advice regarding emergency situations cannot always be addressed over the telephone. You may be referred to the emergency department for more effective management of your problem. Activity Limitations: It is important to give your body time to heal, so please limit your activities : * In general, don't do anything that moves your spine too much. You should avoid contact sports, twisting or heavy lifting while you recover. * 5-10 pounds is all you should attempt to lift. * You should not plan on driving for approximately 3 weeks and you should avoid traveling more than 30-45 minutes at a time. Longer trips should be broken down with walking breaks spaced appropriately. * Physical therapy is not usually required. * Walking and good posture practices will help you recover and regain your function. * Avoid straining or sudden changes in position. * In general, the goal is to take it easy and recover. Don't cause any new problems. Just relax. Showers: * Do not take a bath, use a Jacuzzi or hot tub or otherwise submerge your incision. * It is usually safe to take a shower 4-5 days after your surgery. * Your incision does not require any special creams or ointments. * Simply clean it with soap and water, dry and re-dress with a clean bandage afterwards. Incision: * Keep incision clean, dry and protected until your first follow-up appointment. * Some amount of drainage and redness is normal. Any drainage should be fairly clear and not have a foul odor. * If you feel anything is wrong or you have excessive drainage, please call us. * Your stitches and jevon will be removed 10-14 days after your surgery. At the time of your first post-op visit. * Neck surgeries are typically closed with a suture underneath the skin. The steri-strips over the incision should be maintained until we see you in the office. Bracing: * You may be provided with a back or neck brace to encourage good posture and prevent injury. It will remind you not to do too much as you heal and will alert others to the fact that you have had a surgery. * Back braces may be removed for showers and when you are resting at home. They must be worn when you are walking around for any period of time or for travel. * For neck surgery, you will likely be provided with two cervical collars. The soft collar ([place] or foam rubber) is worn most commonly throughout the day and while sleeping. The plastic collar (provided at the hospital) is for showering/bathing. * Except while eating, collars should remain in place. More specifically, bracing is provided for a purpose and should be worn. * Please obtain your brace or collars prior to your operation and bring them to the hospital with you on the day of surgery. * You should also bring your collars to your post-op appointment with Dr. Leal. You should always take good care of your body and practice healthy habits, especially following surgery. You should: * Follow your doctor's treatment plan * Sit and stand properly with good posture (ears over shoulders, shoulders over hips) Don't slouch * Learn to lift correctly * Exercise regularly (low-impact aerobic exercise is especially good, but check with your doctor first) * Generally, be up and walking for 5-10 minutes at a time at least 3-4 times per day from the day you get home * Increasing walking to tolerance until you can walk for 20-30 minutes at a time * Attain and maintain a healthy body weight * Eat healthy foods ( a well-balanced, low-fat diet rich in fruits and vegetables) and get enough calcium * Avoid excessive use of alcohol When to call our office - If you notice any of the following: * Increased pain not relieve by pain medicine * Fevers greater then 100 degrees F, chills or flu symptoms * Increased redness around incision * Drainage from the incision that is not clear * Any foul smelling drainage * Swelling or fluid collection beneath the skin Miscellaneous: * In the hospital, you may be given a walker or cane for support while walking. These are temporary needs and are intended to prevent injuries due to falls. You may discontinue them when you feel strong and steady enough on your feet. * Sleep in a comfortable position. We find that many patients find a lounge chair or recliner with several pillows to be beneficial in the early post-operative period. * The support stockings should be used for 7-10 days and may be discontinued when you are back to walking more and conducting usual household activities. No problem is insignificant. We are here to help you and get you well. Contact us at [phone]. Definitions: Foraminotomy: If part of the disc or a bone spur (osteophyte) is pressing on a nerve as it leaves the vertebra (through an exit called the foramen), a foraminotomy may be done. Otomy means "to make an opening." A foraminotomy is making the opening of the foramen larger, so the nerve can exit without being compressed. Laminotomy: Similar to the foraminotomy, a laminotomy makes a larger opening, this time in your bony plate protecting your spinal canal and spinal cord (the lamina). The lamina may be pressing on your nerve, so the surgeon may make more room for the nerves using a laminotomy. Laminectomy: Sometimes, a laminotomy is not sufficient. The surgeon may need to remove all or part of the lamina. This procedure is called a laminectomy. This can often be done at many levels without any harmful effects. Current Hospital Diet Patient's current hospital diet: AHA Diet (Heart Healthy) Discharge Diet Recommended Diet: Regular Diet Procedures Procedures Performed: L3-L5 Laminectomy, L3-L4 Discectomy Pending Studies Studies pending at discharge: no Medical Emergencies . Who to Call and When: Medical Emergencies: If at any time you feel your situation is an emergency, please call 911 immediately. . Non-Emergent Contact Non-Emergency issues call your: Primary Care Provider . "Provider Documentation" section prepared by Mitchell Leal. .
[2018-02-17] MEDS ORDERED: HYDR-4383 PO (16:21)
[2018-02-17 22:51] VITALS: BP 179/82; PULSE 64; TEMP 36.8; O2SAT 92
[2018-02-18 00:11] VITALS: BP 160/68
[2018-02-18 03:47] VITALS: BP_SYST 160; BP_SYST 161; BP_SYST 164; BP_DIAS 67; BP_DIAS 70; BP_DIAS 71
[2018-02-18] MEDS: ACETAMINOPHEN IV 1,000 MG in EMPTY BAG 0 ML IV SCH ×2 (04:18→13:12)
[2018-02-18] MEDS: DEXAMETHASONE INJ 10 MG in SYRINGE 0 ML IV SCH (04:18)
[2018-02-18 08:30] VITALS: BP_SYST 172; BP_SYST 178; BP_SYST 183; BP_DIAS 65; BP_DIAS 73; BP_DIAS 75; PULSE 67; TEMP 36.6; O2SAT 91
[2018-02-18] MEDS ORDERED: LISINOPRIL 10 MG TAB PO SCH (09:00)
[2018-02-18] MEDS: RIVAROXABAN TAB 15 MG TAB PO SCH (09:09)
[2018-02-18] MEDS: METOPROLOL SUCC 50MG EXT REL TAB PO SCH (09:10)
[2018-02-18] MEDS: DOCUSATE SODIUM 100 MG CAP PO SCH (09:10)
[2018-02-18] MEDS: POLYETHYLENE (MIRALAX) 17 GM PACK PO SCH (09:11)
[2018-02-18] MEDS ORDERED: BISACODYL 10 MG SUPP PR STA (09:28)
[2018-02-18] MEDS ORDERED: SOD PHOSPHATE/SOD BIPHOSPHATE ENEMA 132 ML BTL PR PRN (09:30)
[2018-02-18 11:20] VITALS: BP 170/73; PULSE 67; TEMP 36.4; O2SAT 94
[2018-02-18 14:21] VITALS: BP 145/60
[2018-02-18] MEDS ORDERED: LSN10 PO (14:24)
[2018-02-18] MEDS ORDERED: CLC100 PO (14:24)
--- NOTE | 2018-02-18 14:25 | Discharge Instructions ---
Discharge Instructions Date of Service Feb 18, 2018. Admission Reason for Admission: Intractable Pain Discharge Discharge Diagnosis / Problem: Stenosis L3-L5, herniation L3-L4, s/p L3-L5 Laminectomy, L3-L4 Discectomy Discharge Goals Goal(s): Decrease discomfort, Improve function, Increase independence, Improve disease control, Improve nutritional status, Learn about illness, Diagnostic testing, Therapeutic intervention, Prevent Disease Progression, Specific goals Activity Recommendations Activity Limitations: as noted below . Instructions / Follow-Up Instructions / Follow-Up you have Low back pain with disc extrusion with nerve root compression: you have Stenosis L3-L5, herniation L3-L4, s/p L3-L5 Laminectomy, L3-L4 Discectomy procedure was done on February 16, 2018, postop day 2 DVT prophylaxis is on Xelreto, Follow-up with orthopedic as instructed, activity, weightbearing per recommendation from Dr. 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 daily , has sent to your pharmacy You have acute on chronic kidney injury with continued elevated creatinine, significantly improve and approach to baseline - you need to follow up with your primary care physician in 1 week, - take medication as instructed, never overdose or any misuse, or take with alcohol, because misuse of medicine may cause organ damage or , call me , or your primary care physician if have questions of discharge medicaitons. - call your primary care physician, or go to local emergency room if has any fever/chill, chest pain, shortness of breathing, nausea/vomiting/abdominal pain , facial droop/slurry speech/local weakness, or if has any questions. - fall precaution - diet as instructed - you need to follow up with your subspecialist, such as Dr. Dr. Leal Current Hospital Diet Patient's current hospital diet: AHA Diet (Heart Healthy) Discharge Diet Recommended Diet: AHA Diet (Heart Healthy) Procedures Procedures Performed: L3-L5 Laminectomy, L3-L4 Discectomy Pending Studies Studies pending at discharge: no Medical Emergencies . Who to Call and When: Medical Emergencies: If at any time you feel your situation is an emergency, please call 911 immediately. . Non-Emergent Contact Non-Emergency issues call your: Primary Care Provider, Specialist (Dr. Leal) . . "Provider Documentation" section prepared by Mundo Mauricio. .
--- NOTE | 2018-02-18 14:35 | Discharge Summary ---
Discharge Summary Date of Service Feb 18, 2018. Discharge Summary Admission Date: Feb 14, 2018 at 18:42 Discharge Date: Feb 18, 2018 Discharge Disposition: Home with services Principal Diagnosis: Low back pain with disc extrusion with nerve root compression: Problems/Secondary Diagnoses: spinal Stenosis L3-L5, herniation L3-L4, s/p L3-L5 Laminectomy, L3-L4 Discectomy procedure was done on February 16, 2018, postop day 3 mild accelerated HTN, Immunizations: Have You Had Influenza Vaccine: Yes Influenza Vaccine Date: Aug 03, 2012 History of Tetanus Vaccine?: Yes History of Pneumococcal: Yes Pneumococcal Date: Aug 03, 2012 History of Hepatitis B Vaccine: Unknown Procedures: See above Consultations: Orthopedic surgeon Medication Reconciliation New Medications: Hydrocodone/Acetaminophen ([place] 10/325 Tab) 1 Tab Tab 1-2 TABS PO Q6H PRN for Pain, #40 As needed for pain Docusate Sodium (Docusate Sodium) 100 Mg Cap 100 MG PO BID for 14 Days, #28 CAP Lisinopril (Zestril) 10 Mg Tab 10 MG PO QAM for 30 Days, #30 TAB Continued Medications: Metoprolol Succinate (Toprol Xl) 50 Mg Tabcr 50 MG PO DAILY, TAB Rivaroxaban (Xarelto) 15 Mg Tab 15 MG PO DAILY, TAB Discharge Exam No pain, up walk with therapist, Review of Systems: Constitutional: No fever, No chills, No sweats, No weight loss, No weakness , No fatigue, No problem reported Eyes: No worsening of vision, No eye pain, No redness, No discharge, No diplopia, No problem reported ENT: No hearing loss, No unusual epistaxis, No nasal symptoms, No sore throat, No tinnitus, No dental problems, No trouble swallowing, No problem reported Respiratory: No cough, No sputum, No wheezing, No shortness of breath, No dyspnea on exertion, No dyspnea at rest, No hemoptysis, No problem reported Cardiovascular: No chest pain, No orthopnea, No PND, No edema, No claudication, No palpitations, No problem reported Abdomen: No pain, No nausea, No vomiting, No diarrhea, No constipation, No GI bleeding, No problem reported Musculoskeletal: + joint pain Genitourinary - Male: No hematuria, No dysuria, No urinary frequency, No urinary urgency, No urinary hesitancy, No urinary retention, No urinary incontinence, No penile discharge, No lesions, No impotence, No problem reported Neurologic: No memory loss, No paralysis, No weakness, No numbness/tingling , No vertigo, No balance problems, No problem reported Psychiatric: No depression symptoms, No anhedonism, No anxiety, No insomnia , No substance abuse, No problem reported Endocrine: No fatigue, No excessive thirst, No excessive urination, No problem reported Hematologic / Lymphatic: No abnormal bleeding/bruising, No clotting problems , No swollen lymph nodes, No night sweats, No problem reported Integumentary: No rash, No itch, No new/changing skin lesions, No color change, No bleeding, No problem reported Physical Exam: General Appearance: WD/WN, no apparent distress Eyes: normal inspection, PERRL, EOMI ENT: normal ENT inspection, hearing grossly normal, TMs normal Neck: supple, no adenopathy, thyroid normal Respiratory/Chest: chest non-tender, lungs clear, normal breath sounds, no respiratory distress, no accessory muscle use Cardiovascular: no gallop, no JVD Abdomen / GI: normal bowel sounds, non tender, soft, no organomegaly, no pulsatile mass Extremities: normal inspection, no calf tenderness, normal capillary refill , no pedal edema Neurologic/Psychiatric: area forester II-XII nml as tested, no motor/sensory deficits , alert, normal mood/affect, normal reflexes, oriented x 3 Skin: normal color, warm/dry Hospital Course 87yo male admitted on February 13, 2018 because of lower back pain, Patient presenting with 6 days of progressive right hip/thigh pain, unable to ambulate secondary to pain and developing numbness. MRI with multiple levels of canal narrowing as well as extraforaminal disc extrusion at L3-L4 with compression of L3 nerve root, osteophyte complex at L5- S1 with displacement of L5 nerve root. Low back pain with disc extrusion with nerve root compression: Orthopedic input appreciated, Stenosis L3-L5, herniation L3-L4, s/p L3-L5 Laminectomy, L3-L4 Discectomy procedure was done on February 16, 2018, postop day 2 DVT prophylaxis is on Xelreto, will continue PT OT after cleared by surgeon Continue pain control with Tylenol PRN, Morphine 1mg IV q 2 hours PRN, Flexeril 5mg po daily Dexamethasone started in ER will continue tapering , will not give any oral steroid to home Fall, has good education with patient and patient's daughter in bedside,, walking with therapist today, recommend okay to going home with home health care Constipation, was treated with magnesium citrate the day before, continue suppository or Fleet enema Has ordered to check orthostatic blood pressure every shift, which were unremarkable Mild accelerated HTN, currently blood pressure in acceptable level, sbp 145-169 , added lisinopril 10 mg p.o. daily, PCP please follow-up and adjust the dose Continue Toprol Has been using hydralazine 10mg IV q 4 hours PRN SBP > 190 mmHg while in the hospital Acute on chronic kidney injury with continued elevated creatinine, check renal offensive medication, significantly improve and approach to baseline stop Toradol, continue morphine for the pain, Discontinue IV fluid continue follow-up renal function PAF, Continue Metoprolol daily at home dose, continue Xarelto History hypothyroidism - patient no longer takes a thyroid medication GI prophylaxis, DVT prophylaxis currently is on hold, Discussed with patient's and patient's family in the room, answered all questions PT OT and discharge plan Instructions / Follow-Up you have Low back pain with disc extrusion with nerve root compression: you have Stenosis L3-L5, herniation L3-L4, s/p L3-L5 Laminectomy, L3-L4 Discectomy procedure was done on February 16, 2018, postop day 2 DVT prophylaxis is on Xelreto, Follow-up with orthopedic as instructed, activity, weightbearing per recommendation from Dr. 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 daily , has sent to your pharmacy You have acute on chronic kidney injury with continued elevated creatinine, significantly improve and approach to baseline - you need to follow up with your primary care physician in 1 week, - take medication as instructed, never overdose or any misuse, or take with alcohol, because misuse of medicine may cause organ damage or , call me , or your primary care physician if have questions of discharge medicaitons. - call your primary care physician, or go to local emergency room if has any fever/chill, chest pain, shortness of breathing, nausea/vomiting/abdominal pain , facial droop/slurry speech/local weakness, or if has any questions. - fall precaution - diet as instructed - you need to follow up with your subspecialist, such as Dr. Dr. Leal Total Time Spent: Greater than 30 minutes This includes examination of the patient, discharge planning, medication reconciliation, and communication with other providers. Discharge Instructions Please refer to the electronic Patient Visit Report (Discharge Instructions) for additional information. Additional Copies To Steve Torres M.D.; Mitchell Leal, DO
[2018-02-18 14:36] VITALS: BP 145/60; PULSE 67; TEMP 36.4; O2SAT 94
--- NOTE | 2018-02-18 14:54 | DISCHARGE SUMMARY ---
SUBJECTIVE: He is improved, stable this morning, taking p.o. No confusion. No issues. Vital signs stable. ASSESSMENT: Status post spinal surgery, doing well. PLAN: Includes discharge home. Instructions, precautions, education. Follow up in the office in 10 days. His prescription on his chart and should change his dressings about every 72 hours.
== END 2018-02-18 15:29 | disposition home health service (06) | DRG 519 ==
LOC: C.EDB 20:07 → C.3E 02-14 00:08 → ENRESERV 02-14 00:17 → OBSVTOIN 02-14 18:42
PROVIDERS: ADMIT Internal Medicine; ATTEND Hospitalist
PROC: 0SB20ZZ Excision of Lumbar Vertebral Disc, Open Approach (ICD-10-PCS; principal; 2018-02-16 08:15)
PROC: 01NB0ZZ Release Lumbar Nerve, Open Approach (ICD-10-PCS; principal; 2018-02-16 08:15)
DX: M51.16 Intervertebral disc disorders with radiculopathy, lumbar region (principal); M47.12 Other spondylosis with myelopathy, cervical region; N17.9 Acute kidney failure, unspecified; T40.2X5A Adverse effect of other opioids, initial encounter; M48.07 Spinal stenosis, lumbosacral region; M48.061 Spinal stenosis, lumbar region without neurogenic claudication; Z96.641 Presence of right artificial hip joint; I48.0 Paroxysmal atrial fibrillation; I71.4 Abdominal aortic aneurysm, without rupture; I12.9 Hypertensive chronic kidney disease with stage 1 through stage 4 chronic kidney disease, or unspecified chronic kidney disease; E03.9 Hypothyroidism, unspecified; K59.03 Drug induced constipation; Y92.239 Unspecified place in hospital as the place of occurrence of the external cause; N18.3 Chronic kidney disease, stage 3 (moderate)

== ENCOUNTER 2018-02-26 10:10 | Emergency (ER) | payer BC, OTHER ==
[~2018-02-26] VITALS: Ht 177.8 cm; Wt 84.5 kg
[~2018-02-26 10:10] MED LIST changes: -ACET-24 PO; -ASPI81TA28 PO; -ATOR10TA82 PO; +CLC100 PO; +HYDR-4383 PO; -LEVO50TA6 PO; +LSN10 PO; +METO-217 PO; -MULT-506 PO; +RIVA1.5T PO; -RXC5 PO; -TPRSR50 PO; -TRIATAB3 PO; -ULT50X PO; -XRL15 PO; -ZOLP5TAB PO
[2018-02-26 10:23] VITALS: Ht 177.8 cm; Wt 84.5 kg
[2018-02-26] MEDS ORDERED: ACET-1256 PO (11:10)
[2018-02-26 11:25] LABS: INR 1.2 (0.9-1.1); PTT PATIENT 34.5 SECONDS (21.0-31.0)
[2018-02-26 11:34] LABS: BASO % 0.2 %; BASO ABS # 0.01 K/uL (0-0.2); EOS % 2.2 %; EOS ABS # 0.12 K/uL (0-0.5); HEMOGLOBIN 12.7 g/dL (14.0-18.0); IG# 0.06 K/uL (0.00-0.02); LYMPH % 11.3 %; LYMPH ABS # 0.61 K/uL (1.2-3.4); MEAN CELL VOLUME 95.5 fL (80-100); MEAN CORPUSCULAR HEMOGLOBIN 31.9 pg (25-34); MEAN CORPUSCULAR HGB CONC 33.4 g/dl (32-36); MEAN PLATELET VOLUME 9.4 fL (7.4-10.4); MONO % 13.4 %; MONO ABS # 0.72 K/uL (0.11-0.59); NEUT % 71.8 %; NEUT ABS # 3.86 K/uL (1.4-6.5); PLATELET COUNT 204 K/uL (130-400); RED CELL DISTRIBUTION WIDTH CV 14.1 % (11.5-14.5); RED CELL DISTRIBUTION WIDTH SD 49.3 fL (36.4-46.3); WHITE BLOOD COUNT 5.38 K/uL (4.8-10.8)
[2018-02-26 11:37] LABS: ALBUMIN 2.8 gm/dl (3.4-5.0); CALCIUM 7.9 mg/dl (8.5-10.1); CREATININE 1.18 mg/dl (0.60-1.40); TOTAL PROTEIN 5.9 gm/dl (6.4-8.2)
[2018-02-26 13:14] VITALS: TEMP 36.7
--- NOTE | 2018-02-26 13:26 | DIAGNOSTIC IMAGING REPORT ---
RIGHT LOWER EXTREMITY VENOUS DOPPLER CLINICAL HISTORY: Right leg pain. Recent back surgery. COMPARISON STUDY: No previous studies for comparison. TECHNIQUE: Sonography of the deep venous system of the right lower extremity was performed. Compression and augmentation were evaluated. FINDINGS: The common femoral, superficial femoral and popliteal veins were compressible. Augmentation was normal. Flow was shown within the deep calf vessels. IMPRESSION: No evidence of deep venous thrombus within the right lower extremity. Electronically signed by: Alfonzo Olmstead M.D. 02/26/2018 1:24 PM Dictated Date/Time: 02/26/2018 1:24 PM
--- NOTE | 2018-02-26 13:44 | EMERGENCY ROOM VISIT NOTE ---
ED Visit Note First contact with patient: 10:27 I have personally seen and evaluated the patient with the physician assistant store manager trainee. I agree with the diagnostic/management decisions and have personally been involved in these decisions and agree with the diagnosis.
[2018-02-26 14:38] VITALS: BP 163/79; PULSE 65; O2SAT 99
--- NOTE | 2018-02-27 06:19 | EMERGENCY ROOM VISIT NOTE ---
ED Visit Note First contact with patient: 10:27 Chief Complaint: Right knee pain. History of Present Illness: Mr. Mcneal is an 87-year-old white male who ambulates into the ED accompanied by his complaining of right medial knee pain. Historically patient reports he had back surgery last week; medical records reviewed and showed that he had an L3-L4 discectomy on February 17. Patient reports yesterday he awoke from sleep starting having pain over the medial aspect of the right knee. Since that time his pain has been constant. He had difficulty describing his discomfort. Currently he rates his discomfort 5/10. He reports last evening it was slightly more severe. His pain worsens with palpation. Last evening he reports he had taken acetaminophen and hydrocodone and had mild relief of his discomfort. Associated with his pain he also feels the area is swollen and he describes paresthesias at the site of his pain and extending up to the mid thigh. He expresses concerns for a possible deep vein thrombus. He denies fevers, chills, sweats, skin eruptions, skin color changes, headache, dizziness, lightheadedness, upper respiratory tract symptoms, cough, wheezing, shortness of breath, chest pain, palpitations, abdominal pain, nausea, vomiting , back pain, leg weakness/numbness/tingling, recent trauma, previous significant knee injury/diseases/surgeries, dependent edema. Review of Systems: As noted above in history of present illness. All body systems were reviewed and found to be negative as noted above. Past Medical History: As noted above and (1) Abdominal aortic aneurysm (2) CALCULUS OF URETER (3) CERV SPONDYL W MYELOPATH (4) History of bladder cancer (5) Intractable low back pain (6) Intractable pain (7) Kidney stones (8) Paroxysmal atrial fibrillation (9) Right Hip DJD (10) Sciatica Surgical Problems: (1) History of hip replacement (2) History of total hip arthroplasty (3) S/P TURP Current Medications: Medications Dose Route/Sig Max Daily Dose Days Date Category Dose Instructions Tylenol (Acetaminophen) 500 Mg Tab 500 Mg PO TID 02/26/18 Reported Docusate Sodium 100 Mg Cap 100 Mg PO BID 14 02/18/18 Rx Zestril (Lisinopril) 10 Mg Tab 10 Mg PO QAM 30 02/18/18 Rx [place] 10/325 Tab (Acetaminophen/Hydrocodone Bitart) 1 Tab Tab 1-2 Tabs PO Q6H PRN 02/17/18 Rx As needed for pain Toprol Xl (Metoprolol Succinate) 50 Mg Tabcr 50 Mg PO DAILY 02/13/18 Reported Xarelto (Rivaroxaban) 15 Mg Tab 15 Mg PO DAILY 02/13/18 Reported Allergies to Medications: Patient denies. Social History: Patient is currently retired; he feels safe in his home environment; he denies tobacco use. Physical Examination: Vital Signs: Date Time Temp Pulse Resp B/P (MAP) Pulse Ox O2 Delivery O2 Flow Rate FiO2 02/26/18 14:38 65 20 163/79 99 02/26/18 13:14 36.7 60 18 170/71 98 Room Air 02/26/18 11:57 57 18 135/60 96 Room Air 02/26/18 10:23 36.7 69 20 142/66 97 Room Air GENERAL: 87-year-old male in mild distress due to pain, nontoxic-appearing, afebrile and hemodynamically stable. NEUROLOGICAL: Awake, alert and oriented to person, place and time. Answering questions appropriately and following commands. Normal gait. Good hand eye coordination. No focal motor or sensory deficits. SKIN: Warm, dry and pink. No soft tissue eruptions or trauma noted. HEENT: Atraumatic and normocephalic. PERRLA. Sclera white and conjunctiva pink. No drainage from naris. Oral cavity moist and pink. Pharynx is nonerythematous or edematous. Speech normal. No lymphadenopathy. Trachea midline. No jugular venous distention. BACK: No tenderness over the bony spine. No CVA tenderness. THORAX: Lungs sounds are clear to auscultation and equal bilaterally with symmetrical chest wall. No wheezing, rales or rhonchi. No crepitus, tenderness , subcutaneous air or deformities noted. HEART: Regular rate and rhythm. No gallops, rubs or murmurs are appreciated. ABDOMEN: Flat, soft and nontender. Positive bowel sounds in all quadrants. No guarding, rigidity or organomegaly. EXTREMITIES: Moves all extremities well on command and with purpose. All distal neurovascular statuses are intact and equal bilaterally. No calf tenderness or cords. Right Lower Extremity: No gross bony deformity. No shortening or malrotation. No tenderness in the hip, lower leg, foot or ankle. Patient has mild tenderness over the medial joint line of the knee without bony deformity or crepitus. His tenderness extends superiorly into the abductus muscle to the medial mid thigh. There is some mild swelling of the abductus muscle but no erythema. Negative ballottement test. Negative patellar apprehension test. No laxity of the collateral or cruciate ligaments. Matthew's test deferred. 4/5 muscle strength in flexion, extension, abduction and abduction of the hips, flexion and extension of the knee, plantarflexion and dorsiflexion of the ankle. Distal pulses, sensation and capillary refill is intact distal to her his injury site. There is no inguinal lymphadenopathy. ED Course: Patient is assessed as noted above. Patient's medication list was reviewed. Laboratory Testing: Test 02/26/18 11:00 Range/Units White Blood Count 5.38 4.8-10.8 K/uL Red Blood Count 3.98 4.7-6.1 M/uL Hemoglobin 12.7 14.0-18.0 g/dL Hematocrit 38.0 42-52 % Mean Corpuscular Volume 95.5 80-100 fL Mean Corpuscular Hemoglobin 31.9 25-34 pg Mean Corpuscular Hemoglobin Concent 33.4 32-36 g/dl Platelet Count 204 130-400 K/uL Mean Platelet Volume 9.4 7.4-10.4 fL Neutrophils (%) (Auto) 71.8 % Lymphocytes (%) (Auto) 11.3 % Monocytes (%) (Auto) 13.4 % Eosinophils (%) (Auto) 2.2 % Basophils (%) (Auto) 0.2 % Neutrophils # (Auto) 3.86 1.4-6.5 K/uL Lymphocytes # (Auto) 0.61 1.2-3.4 K/uL Monocytes # (Auto) 0.72 0.11-0.59 K/uL Eosinophils # (Auto) 0.12 0-0.5 K/uL Basophils # (Auto) 0.01 0-0.2 K/uL RDW Standard Deviation 49.3 36.4-46.3 fL RDW Coefficient of Variation 14.1 11.5-14.5 % Immature Granulocyte % (Auto) 1.1 % Immature Granulocyte # (Auto) 0.06 0.00-0.02 K/uL Prothrombin Time 12.2 9.0-12.0 SECONDS Prothromb Time International Ratio 1.2 0.9-1.1 Activated Partial Thromboplast Time 34.5 21.0-31.0 SECONDS Partial Thromboplastin Ratio 1.3 Sodium Level 140 136-145 mmol/L Potassium Level 4.0 3.5-5.1 mmol/L Chloride Level 107 98-107 mmol/L Carbon Dioxide Level 26 21-32 mmol/L Anion Gap 7.0 3-11 mmol/L Blood Urea Nitrogen 22 7-18 mg/dl Creatinine 1.18 0.60-1.40 mg/dl Est Creatinine Clear Calc Drug Dose 43.8 ml/min Estimated GFR () 63.0 Estimated GFR (Non- 54.4 BUN/Creatinine Ratio 18.8 10-20 Random Glucose 114 70-99 mg/dl Calcium Level 7.9 8.5-10.1 mg/dl Total Bilirubin 0.6 0.2-1 mg/dl Direct Bilirubin 0.1 0-0.2 mg/dl Aspartate Amino Transf (AST/SGOT) 16 15-37 U/L Alanine Aminotransferase (ALT/SGPT) 35 12-78 U/L Alkaline Phosphatase 83 45-117 U/L Total Protein 5.9 6.4-8.2 gm/dl Albumin 2.8 3.4-5.0 gm/dl Venous Doppler Ultrasound: Was reviewed by myself and read by the radiologist showing no evidence of deep vein thrombus in the right lower extremity. Patient was offered pain medications and refused. Patient was reassessed multiple times during her stay in the emergency department. Patient's case was reviewed with Dr. Calvert; he independently assessed the patient we agreed on diagnostic approach, treatment, disposition and plan. Patient was educated about today's findings and instructed on his treatment plan ; he verbalized understanding and agreement with this plan. Clinical Impression: Medial right thigh pain. Decision-Making: Initially my differential diagnosis I considered DVT, medial collateral ligament injury, muscle injury, Deras's cyst, and other causes. Disposition: Patient discharged home in stable condition accompanied by his ; prior to departure he was reassessed and subjectively reported he was feeling better and rated his discomfort 2/10. Plan: Patient was encouraged to continue his current medications as prescribed. Patient was encouraged you 650 mg of acetaminophen as needed for pain every 6 hours. Patient was encouraged use ice on the area for pain and/or swelling 5-6 times a day for 20-30 minutes. Patient was encouraged to follow-up with his PCP for recheck in 2-3 days. Patient was encouraged return the ED for worsening/uncontrolled pain, increasing redness/swelling, fevers, chest pain, shortness of breath, sensations of heart racing or any new/concerning symptoms.
== END 2018-02-26 14:39 | disposition home or self-care (01) ==
LOC: C.EDB 10:12
DX: M79.651 Pain in right thigh (principal); I48.0 Paroxysmal atrial fibrillation; M16.11 Unilateral primary osteoarthritis, right hip; M54.30 Sciatica, unspecified side